=== PATIENT | female | born 1990 ===

== ENCOUNTER 2020-03-19 14:45 | Emergency (ER) | payer OTHER, SELFPAY ==
[2020-03-19 15:00] VITALS: BP 168/100; PULSE 95; RESP 16; TEMP 37.3; O2SAT 100; BMI 31.2
[2020-03-19 15:04] VITALS: BP 168/100; PULSE 95; RESP 16; TEMP 37.3; O2SAT 100
--- NOTE | 2020-03-19 15:20 | ED.DIZZY ---
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 No nausea, vomiting, light sensitivity or weakness. She tells me she has a history of vertigo and was prescribed meclizine however did not have any of this at home. She is also complaining of some posterior neck and head pain. Worsened in the morning after sleeping and worsened with moving her head. MD elicited complaint: dizziness Onset (ago): week(s) ( One week) Timing: intermittent Severity: mild Description: sense of movement History of similar symptoms: Yes Exacerbating factors: movement/ambulation and change in body position Relieving factors: remaining still Associated symptoms: other ( headache, neck pain) Related Data Previous Rx's Medication Instructions Recorded ibuprofen 600 mg PO Q8H PRN #20 tab 03/19/20 meclizine 25 mg PO TID PRN #20 tab 03/19/20 Allergies Allergy/AdvReac Type Severity Reaction Status Date / Time No Known Allergies Allergy Unverified 02/17/20 18:34 N.K.D.A. Allergy Unknown Uncoded 10/29/19 00:00 Review of Systems Review of Systems: Yes all other systems are reviewed and are negative Constitutional: Constitutional: Reports no additional constitutional complaints, Denies body ache(s), Denies chills, Denies fever(s), Reports headache(s) and Denies weakness Eyes: Eyes: Reports no additional eye complaints and Denies change in vision ENT: Reports system reviewed and no additional complaints, except as documented, Reports dizziness, Reports headache(s), Denies nasal congestion, Denies nasal discharge and Denies neck pain Cardiovascular: Cardiovascular: Reports no additional cardiovascular complaints, Denies chest pain, Denies leg edema and Denies dyspnea Respiratory: Respiratory: Reports no additional respiratory complaints, Denies cough and Denies dyspnea Gastrointestinal: Gastrointestinal: Reports no additional gastrointestinal complaints, Denies abdominal pain, Denies diarrhea, Denies nausea and Denies vomiting Genitourinary: Genitourinary: Reports no additional female genitourinary complaints and Denies urinary incontinence Musculoskeletal: Musculoskeletal: Reports no additional musculoskeletal complaints, Denies back pain, Denies arthralgias, Denies joint swelling, Denies neck pain, Denies numbness and Denies tingling Integumentary/Breasts: Skin/Breast: Reports system reviewed and no additional complaints, except as docu and Denies rash Neurologic: Reports system reviewed and no additional complaints, except as documented, Denies Abnormal speech present, Reports dizziness, Reports headache(s), Denies numbness, Denies tingling and Denies weakness PMF Past Medical History Attestation statement: The following information was validated with the patient. Source: obtained from family and nursing notes reviewed Medical History Anemia Hyperlipemia Social History Social History Alcohol intake: never Smoking Status: Never smoker Use of substances other than those prescribed or required for medical reasons: No Advance Directives: No Advance Directives Information Provided: No Physical Exam Vital Signs: Vital Signs: Vital Signs Temp Pulse Resp BP Pulse Ox 03/19/20 18:10 98.4 F 95 16 139/88 99 03/19/20 16:26 90 155/97 H 03/19/20 16:25 80 139/77 03/19/20 15:04 99.1 F 95 16 168/100 H 100 03/19/20 15:00 99.1 F 95 16 168/100 H 100 Body Mass Index 31.2 Const: General: cooperative, healthy appearing, comfortable and no acute distress Orientation/consciousness: patient oriented x3 Limitations: no limitations HENMT: Head: Yes normal to inspection Ears: hearing grossly normal bilaterally General nose exam: Normal external nose present Face and sinus: Yes normal facial exam Mouth: Normal oral and palatal mucosa present Throat: Yes posterior oropharynx normal Eyes: General: appearance normal, both eyes and all related structures Pupils: Equal, round and reactive pupils present Neck: Neck: Yes normal visual inspection Chest: Chest palpation & inspection: normal inspection of the chest Resp: Effort & Inspection: normal respiratory effort Auscultation: clear to auscultation bilaterally Cardio: Rate: regular rate Rhythm: regular rhythm Peripheral pulses: Peripheral pulses 2+ throughout GI: Inspection: Yes normal to inspection Palpation (GI): Soft to palpation and nontender Auscultation: normal bowel sounds Back/Spine/Pelvis: Thoracic/Lumbar Spine: thoracic and lumbar spine normal to inspection Skin: General skin exam: no rashes or lesions noted Neuro: Other: exam the patient has bilateral trapezius tenderness which she reports on palpation up to her posterior head which is worsened with lateral right and left head movement and palpation. No meningeal signs. No lymphadenopathy. General: patient oriented x3, Normal light touch and pain sensation, no focal motor deficits and normal sensation to monofilament Cranial nerves: Yes Equal, round and reactive pupils present Cognition (Neuro): normal cognition Speech: No Abnormal speech present Gait exam (Neuro): Normal gait present Motor exam (neuro): 5/5 motor strength present throughout Sensory Exam: Normal double simultaneous stimulation for sensation Coordination: [id number] test normal, [id number] test normal and tandem gait normal Romberg Test: Negative Extrem: General: Yes normal to inspection Course Course Course Narrative: 29-year-old female here with dizziness with position changes for the last week. Normal neuro exam. Normal cerebellar function on exam. The patient is ambulatory with steady gait. Also complaining of some posterior head and neck pain which on exam is musculoskeletal with no midline tenderness, lymphadenopathy or meningeal signs. Will check orthostatics, labs, EKG, UA. 1900- EKG unremarkable. UA negative. Labs unremarkable. Orthostatics negative. Patient reports feeling improved after receiving a dose meclizine and Toradol here. Likely vertigo. Patient tells me she has history of same and feels similar. Likely tension migraine. Review of care for home. Viewed worrisome signs and symptoms and when to return to the emergency department. Comfortable discharge home. MDM - Dizziness MDM Narrative Medical decision making narrative: Vertigo, anemia, BPPV, orthostatic hypotension, tension migraine, musculoskeletal pain. exam consistent with vertigo. Patient does she has history of the same and this feels similar. Less likely orthostatic hypotension with negative orthostatics vital signs. Exam is consistent with also tension migraine which improved with NSAIDs here. Medical Records Attestation: I reviewed the patient's medical records. Lab Data Attestation: I reviewed the patient's lab results. Result diagrams: 03/19/20 15:52 03/19/20 15:52 Labs: Lab Results 03/19/20 03/19/20 03/19/20 Range/Units 15:52 15:52 15:52 WBC 8.4 (4.8-10.8) X10*3/uL RBC 4.46 (4.20-5.50) X10*6/uL Hgb 11.6 L (12.0-16.0) g/dl Hct 36.3 L (37-47) % MCV 81.4 (80-98) fL MCH 26.0 L (27.0-33.0) pg MCHC 32.0 (31.0-35.0) g/dl RDW 14.6 (11.0-16.0) % Plt Count 265 (160-400) X10*3/uL MPV 10.9 (9.4-12.3) fL Immature Gran % (Auto) 0.1 (0.0-0.4) % Neut % (Auto) 62.5 (45-73) % Lymph % (Auto) 30.6 (20-40) % [place] % (Auto) 6.0 (2-11) % Eos % (Auto) 0.6 (0-4) % Baso % (Auto) 0.2 (0-2) % Lymph # (Auto) 2.6 (1.2-4.9) X10*3/uL [place] # (Auto) 0.5 (0.1-1.2) X10*3/uL Eos # (Auto) 0.1 (0.0-0.4) X10*3/uL Baso # (Auto) 0.0 (0.0-0.2) X10*3/uL Abs Immat Gran (auto) 0.01 (0.00-0.03) X10*3/uL Absolute Neuts (auto) 5.3 (2.0-8.3) X10*3/uL Absolute Nucleated RBC 0.000 (0.0-0.012) X10*3/uL Nucleated RBC % (auto) 0.0 (0.0-0.2) /100WBC Hold Blue Top SEE NOTE Sodium 140 (135-145) mmol/L Potassium 3.8 (3.3-5.1) mmol/l Chloride 106 (96-108) mmol/L Carbon Dioxide 27 (22-29) mmol/L Anion Gap 11 L (12-20) BUN 13 (9-16) mg/dL Creatinine 0.77 (0.5-1.4) mg/dL Estim Creat Clear Calc 97.6 Estimated GFR > 60 Random Glucose 107 (60-115) mg/dL Calcium 9.3 (8.4-10.2) mg/dL Magnesium 1.8 (1.6-2.6) mg/dL Total Bilirubin 0.4 (0.0-1.0) mg/dL Direct Bilirubin < 0.2 (0.0-0.5) mg/dL AST 11 (5-31) U/L ALT 11 (0-31) U/L Alkaline Phosphatase 90 (39-117) U/L Total Protein 7.5 (6.5-8.0) g/dL Albumin 4.2 (3.5-5.0) g/dL Urine Color Urine Appearance Urine pH (5.0-8.0) Ur Specific [place] (1.005-1.025) Urine Protein (NEG-TRACE) MG/DL Urine Glucose (UA) (NEG) MG/DL Urine Ketones (NEG) MG/DL Urine Blood (NEG) Urine Nitrite (NEG) Ur Leukocyte Esterase (NEG) Urine RBC (0) /HPF Urine WBC (0-4) /HPF Ur Squamous Epith Cells /LPF Urine Bacteria /LPF Urine Test (NEGATIVE) 03/19/20 Range/Units 16:07 WBC (4.8-10.8) X10*3/uL RBC (4.20-5.50) X10*6/uL Hgb (12.0-16.0) g/dl Hct (37-47) % MCV (80-98) fL MCH (27.0-33.0) pg MCHC (31.0-35.0) g/dl RDW (11.0-16.0) % Plt Count (160-400) X10*3/uL MPV (9.4-12.3) fL Immature Gran % (Auto) (0.0-0.4) % Neut % (Auto) (45-73) % Lymph % (Auto) (20-40) % [place] % (Auto) (2-11) % Eos % (Auto) (0-4) % Baso % (Auto) (0-2) % Lymph # (Auto) (1.2-4.9) X10*3/uL [place] # (Auto) (0.1-1.2) X10*3/uL Eos # (Auto) (0.0-0.4) X10*3/uL Baso # (Auto) (0.0-0.2) X10*3/uL Abs Immat Gran (auto) (0.00-0.03) X10*3/uL Absolute Neuts (auto) (2.0-8.3) X10*3/uL Absolute Nucleated RBC (0.0-0.012) X10*3/uL Nucleated RBC % (auto) (0.0-0.2) /100WBC Hold Blue Top Sodium (135-145) mmol/L Potassium (3.3-5.1) mmol/l Chloride (96-108) mmol/L Carbon Dioxide (22-29) mmol/L Anion Gap (12-20) BUN (9-16) mg/dL Creatinine (0.5-1.4) mg/dL Estim Creat Clear Calc Estimated GFR Random Glucose (60-115) mg/dL Calcium (8.4-10.2) mg/dL Magnesium (1.6-2.6) mg/dL Total Bilirubin (0.0-1.0) mg/dL Direct Bilirubin (0.0-0.5) mg/dL AST (5-31) U/L ALT (0-31) U/L Alkaline Phosphatase (39-117) U/L Total Protein (6.5-8.0) g/dL Albumin (3.5-5.0) g/dL Urine Color YELLOW Urine Appearance CLEAR Urine pH 6.5 (5.0-8.0) Ur Specific [place] 1.020 (1.005-1.025) Urine Protein NEG (NEG-TRACE) MG/DL Urine Glucose (UA) NEG (NEG) MG/DL Urine Ketones NEG (NEG) MG/DL Urine Blood TRACE (NEG) Urine Nitrite NEG (NEG) Ur Leukocyte Esterase NEG (NEG) Urine RBC 0-2 (0) /HPF Urine WBC 0 (0-4) /HPF Ur Squamous Epith Cells 1+ /LPF Urine Bacteria TRACE /LPF Urine Test NEGATIVE (NEGATIVE) ECG Data Attestation: I personally reviewed and interpreted this ECG as follows: ECG interpretation date: 03/19/20 ECG interpretation time: 16:16 Interpretation: NSR with sinus arrthymia, normal pr, normal qrs, normal st Discharge Plan Discharge Clinical Impression: Vertigo, Acute tension headache Patient Disposition: Home, Self-Care Instructions: Tension Headache (ED), Vertigo (ED) Additional Instructions: heat to the area, gentle stretching change positions slowly Prescriptions: New ibuprofen 600 mg tablet 600 mg PO Q8H PRN (Reason: pain) Qty: 20 RF: 0 meclizine 25 mg tablet 25 mg PO TID PRN (Reason: dizziness) Qty: 20 RF: 0 Referrals: Jaylene Kidd MD [Primary Care Provider] - 2 days Interventions: ED Discharge Assessment Last Done: 03/19/20 19:44 Discharge Date/Time: 03/19/20 19:45 Print Language: [place]
--- NOTE | 2020-03-19 15:30 | ECG_ITS ---
Test Reason : DIZINESS Blood Pressure : / mmHG Vent. Rate : 078 BPM Atrial Rate : 078 BPM P-R Int : 134 ms QRS Dur : 090 ms QT Int : 360 ms P-R-T Axes : 041 055 027 degrees QTc Int : 410 ms Sinus rhythm with marked sinus arrhythmia Otherwise normal ECG When compared with ECG of 27-JUN-2019 01:33, Premature atrial complexes are no longer Present Referred By: Ambar Helton Electronically Signed By:MARTINEZ ESPINO MD
[2020-03-19] MEDS: Meclizine HCl 25 MG TABLET PO (15:53)
[2020-03-19 15:59] LABS: Basophils Percent Auto 0.2 % (0-2); Eosinophils Absolute Auto 0.1 X10*3/uL (0.0-0.4); Eosinophils Percent Auto 0.6 % (0-4); Hematocrit 36.3 % (37-47); Hemoglobin 11.6 g/dl (12.0-16.0); Imm Gran Abs Auto 0.01 X10*3/uL (0.00-0.03); Imm Gran Pct Auto 0.1 % (0.0-0.4); Lymphocytes Absolute Auto 2.6 X10*3/uL (1.2-4.9); Lymphocytes Percent Auto 30.6 % (20-40); MANUAL DIFF FLAG NO; Mean Corpuscular Volume 81.4 fL (80-98); Mean Platelet Volume 10.9 fL (9.4-12.3); Monocytes Absolute Auto 0.5 X10*3/uL (0.1-1.2); Neutrophils Absolute Auto 5.3 X10*3/uL (2.0-8.3); Neutrophils Percent Auto 62.5 % (45-73); Platelet Count 265 X10*3/uL (160-400); Red Blood Count 4.46 X10*6/uL (4.20-5.50); Red Cell Distribution Width 14.6 % (11.0-16.0); White Blood Count 8.4 X10*3/uL (4.8-10.8)
[2020-03-19 16:12] LABS: Glucose Urine UA NEG (NEG); Leukocyte Esterase Urine NEG (NEG); Nitrite Urine NEG (NEG); PH 6.5 (5.0-8.0); Urine Blood TRACE (NEG); Urine Ketones NEG (NEG); Urine Protein NEG (NEG-TRACE)
[2020-03-19 16:16] LABS: Appearance Urine CLEAR; Color Urine YELLOW
[2020-03-19 16:17] LABS: UPreg QC Valid YES; Urine Pregnancy NEGATIVE (NEGATIVE)
[2020-03-19 16:19] LABS: Bacteria Urine TRACE /LPF; RBC Urine 0-2 /HPF (0); Squamous Epithelial Cell Urine 1+ /LPF; WBC Urine 0 /HPF (0-4)
[2020-03-19 16:25] VITALS: BP 139/77; PULSE 80
[2020-03-19 16:26] VITALS: BP 155/97; PULSE 90
[2020-03-19 16:35] LABS: Alanine Aminotransferase 11 U/L (0-31); Albumin Level 4.2 g/dL (3.5-5.0); Alkaline Phosphatase 90 U/L (39-117); Anion Gap 11 (12-20); Aspartate Amino Transferase 11 U/L (5-31); Bilirubin Direct < 0.2 mg/dL (0.0-0.5); Bilirubin Total 0.4 mg/dL (0.0-1.0); Blood Urea Nitrogen 13 mg/dL (9-16); Calcium 9.3 mg/dL (8.4-10.2); Carbon Dioxide 27 mmol/L (22-29); Chloride 106 mmol/L (96-108); Creatinine Clr Calc Pharmacy 97.6; Estimated Glomerular Filt Rate > 60; Glucose Random 107 mg/dL (60-115); Magnesium 1.8 mg/dL (1.6-2.6); Potassium 3.8 mmol/l (3.3-5.1); Sodium 140 mmol/L (135-145); Total Protein 7.5 g/dL (6.5-8.0)
[2020-03-19] MEDS: Ketorolac Tromethamine 30 MG/ML VIAL IVPUSH (18:07)
[2020-03-19 18:10] VITALS: BP 139/88; PULSE 95; RESP 16; TEMP 36.9; O2SAT 99
== END 2020-03-19 19:45 | disposition home or self-care (01) ==
PROVIDERS: Nurse Practitioner Family; Emergency Provider Emergency Medicine; PCP Internal Medicine
DX: R42 Dizziness and giddiness (principal); G44.209 Tension-type headache, unspecified, not intractable
CPT/HCPCS: 36415; 80048; 80076; 81001; 81025; 83735; 85025; 93005; 96374; 96376; 99284; J1885

== ENCOUNTER → 2020-06-21 14:33 | Outpatient (BNVA) | payer OTHER, SELFPAY | PROVIDERS: PCP Internal Medicine; Visit Provider Advanced Practice Midwife ==

== ENCOUNTER 2020-08-12 14:31 | Emergency (ER) | payer OTHER, SELFPAY ==
--- NOTE | ~2020-08-12 | CT_ITS ---
EXAMINATION: CT ABDOMEN AND PELVIS WITHOUT CONTRAST CLINICAL INFORMATION: Right flank pain COMPARISON: None TECHNIQUE: Multidetector volumetric imaging was performed from the superior aspect of the liver through the pubic symphysis. Sagittal and coronal reformatted images were obtained on the technologist's workstation. This CT examination was performed using dose optimization techniques as appropriate, variously including the following: *Automated exposure control *Adjustment of mA and/or kV according to patient size (this includes techniques or standardized protocols for targeted exams where dose is matched to indication/reason for exam; i.e. extremities or head) *Use of iterative reconstruction technique DLP: 611 mGy-cm FINDINGS: LUNG BASES: The visualized lung bases are unremarkable. LIVER, GALLBLADDER, AND BILIARY TREE: The liver is normal in size, shape, and attenuation. No focal hepatic lesion or biliary ductal dilatation is present. The gallbladder is unremarkable with no evidence of radiopaque gallstones, gallbladder wall thickening, or obvious pericholecystic inflammatory changes. PANCREAS: Unremarkable. SPLEEN: Unremarkable. ADRENAL GLANDS: Unremarkable. KIDNEYS AND URETERS: The kidneys are normal in size, shape, and attenuation. No hydronephrosis, hydroureter, or calculi seen. No perinephric stranding. BLADDER: Unremarkable. GASTROINTESTINAL TRACT: The small and large bowel are unremarkable. The appendix is unremarkable. ABDOMINAL WALL: No significant hernia is appreciated. LYMPH NODES: Normal. VASCULAR: Unremarkable. PELVIC VISCERA: Unremarkable. OSSEOUS STRUCTURES: Unremarkable. CT/CT abdomen pelvis wo con IMPRESSION: No significant abnormality. No renal or ureteral calculi. No hydronephrosis. Normal appendix.
[2020-08-12 14:44] VITALS: BP 147/80; PULSE 97; RESP 16; TEMP 36.9; O2SAT 100; BMI 33.6
--- NOTE | 2020-08-12 14:55 | ED.BACK ---
HPI - Back Pain/Injury General Chief Complaint: Back Pain/Injury Stated Complaint: rib pain Time Seen by Provider: 08/12/20 14:53 Source: patient Mode of arrival: ambulatory Limitations: language barrier (Romanian-speaking) History of Present Illness HPI Narrative: A 30-year-old female with a past medical history of anemia, hyperlipidemia, blurry vision, irregular meniscus and tubal ligation presenting to the ED with complaints of atraumatic right back pain radiating to her right flank/right abdomen when she was taking out the trash this morning. Denies any other symptoms complaints or concerns at this time. MD elicited complaint: back pain Onset (ago): hour(s) Timing: constant Severity: moderate Similar Symptoms Previously: No Quality: aching Location: right flank Radiation: abdomen (Right-sided) Exacerbating factors: none Relieving factors: none Context: other (While throwing out the trash this morning) Associated symptoms: denies other symptoms Work related injury: No Related Data Previous Rx's Medication Instructions Recorded ibuprofen 600 mg PO Q8H PRN #20 tab 03/19/20 meclizine 25 mg PO TID PRN #20 tab 03/19/20 cyclobenzaprine 10 mg PO Q8H #10 tab 08/12/20 ibuprofen 800 mg PO Q8H PRN #14 tab 08/12/20 Allergies Allergy/AdvReac Type Severity Reaction Status Date / Time No Known Allergies Allergy Verified 06/21/20 14:39 Review of Systems Review of Systems: Constitutional : No trauma, No Weight loss, No Fever, No Chills, ENT/Mouth : No Hearing loss, No Ear Pain, No Nasal Congestion, No Sinus Pain, No Hoarseness, No sore throat, No Rhinorrhea, No Swallowing Difficulty Cardiovascular : No Chest Pain, No SOB Respiratory : No Cough, No Dyspnea Gastrointestinal : No Nausea, No Vomiting, No Diarrhea, No abdominal Pain, No Hematochezia, No Melena Genitourinary : No Dysuria, No Urinary Frequency, No Hematuria, No Urinary or Bowel Incontinence/retention Musculoskeletal : + Back pain, No neck pain, No joint stiffness, No joint swelling Skin : No Skin Lesions, No rash or signs of infection Neuro : No Weakness, No radiation, No Numbness, No Paresthesias, No headache, no loss of bowel or bladder incontinence, no saddle anesthesia, Focal weakness, No radiation Denies history of IV drug usage. Yes all other systems are reviewed and are negative [facility] Past Medical History Attestation statement: The following information was validated with the patient. Medical History Anemia Blurry vision Hyperlipemia Irregular menses Surgical History History of tubal ligation Family History Family History Father Diabetes Hypertension Myocardial infarction Mother Hypertension Son In good health Brother In good health Sister In good health Paternal Aunt Stroke Social History Social History Alcohol intake: never Smoking Status: Never smoker Smoked in Last 30 Days: No Use of substances other than those prescribed or required for medical reasons: No Advance Directives: No Advance Directives Information Provided: Yes Gender identity: female Physical Exam Vital Signs: Vital Signs: Last Vital Signs Temp 98.4 F 08/12/20 14:44 Pulse 97 08/12/20 14:44 Resp 16 08/12/20 14:44 BP 147/80 H 08/12/20 14:44 Pulse Ox 100 08/12/20 14:44 Body Mass Index 33.6 vital signs have been reviewed as normal and appeared to be correct. Blood pressure hypertensive at 147/80. Heart rate normal. Respiration rate normal. Temperature normal. Oxygen saturation normal. Appearance: Alert. Oriented X3. No acute distress. Head: Normal external exam. Normocephalic. Atraumatic. No Medel signs noted. No raccoon eyes noted Eyes: PERRLA. EOMI. Conjunctiva and sclera normal. Eyelids normal. ENT: EAC normal. TM's Normal. Pharynx normal. Uvula midline. Moist mucous membranes. No trismus noted. No drooling noted. No muffled voice noted. Neck: Normal inspection. Neck supple. FROM. No adenopathy. Thyroid Normal. No meningeal signs. No neck mass noted. CVS: Normal heart rate and rhythm. Heart sound normal. No murmurs noted. Pulses normal throughout. Respiratory: No respiratory distress. Painless inspiration. Breath sounds normal. No wheezes/rales/rhonchi noted. Chest nontender. No accessory muscle usage noted or decreased air movement noted. Abdomen: Soft and mild tenderness to palpation to right flank/right side of abdomen no point tenderness to right lower quadrant or right upper quadrant. Nondistended. No guarding. No rigidity. Bowel sounds normal in all 4 quadrants. No distention noted. No organomegaly noted. No visible injury noted. No rebound tenderness. Negative Rovsing sign. Negative obturator's sign. Negative psoas sign. Negative Mott sign. Back: No CVA tenderness. Full range of motion noted. No obvious deformities, or edema. Mild para-spinal muscular tenderness from lumbar region to coccyx. Full ROM in back and lower extremities. 5/5 strength hip extension/flexion, abduction, adduction. Mild Lumbar pain with hip flexion against resistance. Straight leg raise test negative on right; Straight leg raise test negative on left; Reflexes normal ankle and knee bilaterally; EHL motor strength normal bilaterally Skin: Skin warm and dry. Normal skin color. Normal skin turgor. No rashes/lesions/lacerations noted. Extremities: No lower extremity edema. Extremities exhibit normal range of motion. Extremities nontender. Neuro: Oriented X 3. No motor deficit. No sensory deficit. Reflexes normal. Course Course Course Narrative: - 14:55pm Pt c likely muscular pain, but could be herniated disc vs kidney stones vs UTI. Neuro exam shows no deficits. Not c/w AAA/epidural abscess/dissection.No high risk Hx (Incont, fever, immunosupp, recent surgery/LP, coag, signif trauma, wt loss, puls mass, hx/o Ca, TB, or IVDU) to warrant MRI. Not c/w spinal fx. Not cauda equina syndrome. Therefore will obtain a UA, UHCG and a CT scan of abdomen pelvis without contrast to evaluate for possible UA, or kidney stones if negative will DC home with symptomatic treatment all instructions return if any new or worsening symptoms follow-up with primary care provider. Patient understands agrees with this plan. Reevaluation(s) Reevaluation #1: - UA within normal limits no evidence of UTI. UHCG negative for . CT scan of abdomen pelvis without contrast within normal limits no evidence of kidney stones or any other acute processes. Will DC home with symptomatic treatment as patient reports some Motrin and Flexeril helped her symptoms moderately. Instructions return if any new or worsening symptoms to follow up with primary care provider. Patient understands agrees the plan. Time: 17:15 [facility] - Back Pain/Injury Medical Records Attestation: I reviewed the patient's medical records. Lab Data Attestation: I reviewed the patient's lab results. Labs: Lab Results 08/12/20 08/12/20 Range/Units 14:59 14:59 Urine Color YELLOW Urine Appearance CLEAR Urine pH 6.5 (5.0-8.0) Ur Specific [place] 1.025 (1.005-1.025) Urine Protein NEG (NEG-TRACE) MG/DL Urine Glucose (UA) NEG (NEG) MG/DL Urine Ketones NEG (NEG) MG/DL Urine Blood NEG (NEG) Urine Nitrite NEG (NEG) Ur Leukocyte Esterase 1+ H (NEG) Urine RBC 0-2 (0) /HPF Urine WBC 5-9 H (0-4) /HPF Ur Squamous Epith Cells 4+ /LPF Urine Bacteria 3+ /LPF Urine Test NEGATIVE (NEGATIVE) Imaging Data CT scan of abdomen and pelvis without IV contrast: Attestation: I personally reviewed and interpreted this imaging study as follows: Radiologist's impression: FINDINGS: LUNG BASES: The visualized lung bases are unremarkable. LIVER, GALLBLADDER, AND BILIARY TREE: The liver is normal in size, shape, and attenuation. No focal hepatic lesion or biliary ductal dilatation is present. The gallbladder is unremarkable with no evidence of radiopaque gallstones, gallbladder wall thickening, or obvious pericholecystic inflammatory changes. PANCREAS: Unremarkable. SPLEEN: Unremarkable. ADRENAL GLANDS: Unremarkable. KIDNEYS AND URETERS: The kidneys are normal in size, shape, and attenuation. No hydronephrosis, hydroureter, or calculi seen. No perinephric stranding. BLADDER: Unremarkable. GASTROINTESTINAL TRACT: The small and large bowel are unremarkable. The appendix is unremarkable. ABDOMINAL WALL: No significant hernia is appreciated. LYMPH NODES: Normal. VASCULAR: Unremarkable. PELVIC VISCERA: Unremarkable. OSSEOUS STRUCTURES: Unremarkable. CT/CT abdomen pelvis wo con IMPRESSION: No significant abnormality. No renal or ureteral calculi. No hydronephrosis. Normal appendix. Discharge Plan Discharge Clinical Impression: Muscle strain Patient Disposition: Home, Self-Care Instructions: Back Pain (ED) Prescriptions: New cyclobenzaprine 10 mg tablet 10 mg PO Q8H Qty: 10 RF: 0 ibuprofen 800 mg tablet 800 mg PO Q8H PRN (Reason: pain) Qty: 14 RF: 0 No Action ibuprofen 600 mg tablet 600 mg PO Q8H PRN (Reason: pain) Qty: 20 RF: 0 meclizine 25 mg tablet 25 mg PO TID PRN (Reason: dizziness) Qty: 20 RF: 0 Referrals: Jaylene Kidd MD [Primary Care Provider] - 2 days Print Language: Romanian
[2020-08-12 15:39] LABS: Glucose Urine UA NEG (NEG); Leukocyte Esterase Urine 1+ (NEG); Nitrite Urine NEG (NEG); PH 6.5 (5.0-8.0); Specific Gravity - Urine 1.025 (1.005-1.025); UACC Culture Trigger YES; Urine Blood NEG (NEG); Urine Ketones NEG (NEG); Urine Protein NEG (NEG-TRACE)
[2020-08-12 15:44] LABS: Appearance Urine CLEAR; Color Urine YELLOW
[2020-08-12 15:59] LABS: Bacteria Urine 3+ /LPF; RBC Urine 0-2 /HPF (0); Squamous Epithelial Cell Urine 4+ /LPF; UPreg QC Valid YES; Urine Pregnancy NEGATIVE (NEGATIVE)
[2020-08-12] MEDS: Ibuprofen 800 MG TABLET PO (16:17)
[2020-08-12] MEDS: Cyclobenzaprine HCl 10 MG TABLET PO (16:17)
== END 2020-08-12 17:23 | disposition home or self-care (01) ==
PROVIDERS: Physician Assistant Medical; Emergency Provider Emergency Medicine; PCP Internal Medicine
DX: S39.012A Strain of muscle, fascia and tendon of lower back, initial encounter (principal); X50.0XXA Overexertion from strenuous movement or load, initial encounter; Y93.9 Activity, unspecified; Y92.009 Unspecified place in unspecified non-institutional (private) residence as the place of occurrence of the external cause; Y99.9 Unspecified external cause status; Z79.899 Other long term (current) drug therapy
CPT/HCPCS: 74176; 81001; 81003; 81025; 87086; 99284

== ENCOUNTER 2020-10-19 10:16 | Outpatient (REF) | payer OTHER, SELFPAY ==
[2020-10-19 12:18] LABS: Hematocrit 35.3 % (37-47); Hemoglobin 11.1 g/dl (12.0-16.0); Mean Corpuscular HGB Conc 31.4 g/dl (31.0-35.0); Mean Corpuscular Volume 79.5 fL (80-98); Mean Platelet Volume 11.1 fL (9.4-12.3); Platelet Count 285 X10*3/uL (160-400); Red Blood Count 4.44 X10*6/uL (4.20-5.50); Red Cell Distribution Width 14.3 % (11.0-16.0); White Blood Count 7.1 X10*3/uL (4.8-10.8)
[2020-10-19 13:00] LABS: Thyroid Stimulating Hormone 0.86 uIU/mL (0.32-4.0)
[2020-10-19 15:15] LABS: CT PCR NOT DETECTED (Not Detect.); NG PCR NOT DETECTED (Not Detect.)
[2020-10-20 08:48] LABS: BV Int Neg Control Negative (Negative); BV Int Pos Control Positive (Positive)
== END 2020-10-19 10:17 | disposition home or self-care (01) ==
LOC: HO.LAB 10:16
PROVIDERS: PCP Internal Medicine; Visit Provider Advanced Practice Midwife
DX: N92.1 Excessive and frequent menstruation with irregular cycle (principal); N93.9 Abnormal uterine and vaginal bleeding, unspecified; Z20.2 Contact with and (suspected) exposure to infections with a predominantly sexual mode of transmission
CPT/HCPCS: 36415; 81025; 84443; 85027; 87480; 87491; 87510; 87591; 87660; 99212

== ENCOUNTER 2020-10-31 08:59 | Outpatient (REF) | payer OTHER, SELFPAY | END 2020-10-31 09:00 | disposition home or self-care (01) | LOC: HO.LAB 08:59 | PROVIDERS: PCP Internal Medicine; Visit Provider Advanced Practice Midwife | DX: N93.9 Abnormal uterine and vaginal bleeding, unspecified (principal); N92.0 Excessive and frequent menstruation with regular cycle; Z32.02 Encounter for pregnancy test, result negative | CPT/HCPCS: 58100; 81025; 88305; 99212 ==

== ENCOUNTER 2020-11-06 12:52 | Outpatient (REF) | payer OTHER, SELFPAY ==
--- NOTE | ~2020-11-06 | US_ITS ---
EXAMINATION: PELVIC ULTRASOUND CLINICAL INFORMATION: Abnormal bleeding COMPARISON: Previous pelvic ultrasound May [address] of the abdomen and pelvis July 2020 TECHNIQUE: Transabdominal and transvaginal pelvic ultrasound was performed. Transvaginal exam was performed for better visualization of uterus and ovaries. FINDINGS: The uterus is anteverted and measures 8.6 x 4.3 x 5.4 cm in dimension. No focal uterine lesion is seen. Endometrial thickness is normal measuring 0.9 cm. There are nabothian cysts in the cervix. The right ovary is located high in the pelvis and measures 2.8 x 3.1 x 2.3 cm. The left ovary measures 3.8 x 2.9 x 2.4 cm. There are multiple small peripheral cysts or follicles seen in the left ovary. This is not appreciated on the right however this may be due to location of the right ovary and limited visualization. There is no fluid in the pelvis. US/US pelvic and transvaginal IMPRESSION: Polycystic appearance to the left ovary otherwise unremarkable exam.
== END 2020-11-06 12:53 | disposition home or self-care (01) ==
LOC: HO.US 12:52
PROVIDERS: Visit Provider Advanced Practice Midwife
DX: N93.9 Abnormal uterine and vaginal bleeding, unspecified (principal); N92.0 Excessive and frequent menstruation with regular cycle
CPT/HCPCS: 76830; 76856

== ENCOUNTER → 2020-11-07 10:05 | Outpatient (BNVA) | payer OTHER, SELFPAY | PROVIDERS: PCP Internal Medicine; Visit Provider Advanced Practice Midwife | DX: N93.9 Abnormal uterine and vaginal bleeding, unspecified (principal); N92.0 Excessive and frequent menstruation with regular cycle; N92.6 Irregular menstruation, unspecified; Z98.51 Tubal ligation status | CPT/HCPCS: 99212 ==

== ENCOUNTER → 2020-11-13 14:04 | Outpatient (BNVA) | payer OTHER, SELFPAY | PROVIDERS: PCP Internal Medicine; Visit Provider Advanced Practice Midwife ==

== ENCOUNTER 2021-04-29 10:50 | Emergency (ER) | payer OTHER, SELFPAY ==
--- NOTE | ~2021-04-29 | CT_ITS ---
EXAMINATION: CT ABDOMEN AND PELVIS WITH CONTRAST CLINICAL INFORMATION: Left-sided lower back pain radiating to the abdomen. COMPARISON: Most recent pelvic ultrasound dated 11/06/[address] abdomen/pelvis dated 08/12/2020. TECHNIQUE: Multidetector volumetric images were obtained from the superior aspect of the liver through the pubic symphysis following administration 85 mL of Omnipaque 350 intravenous contrast. Sagittal and coronal reformatted images were obtained on the technologist's workstation. Oral Contrast: No. This CT examination was performed using dose optimization techniques as appropriate, variously including the following: *Automated exposure control. *Adjustment of mA and/or kV according to patient size (this includes techniques or standardized protocols for targeted exams where dose is matched to indication/reason for exam; i.e. extremities or head). *Use of iterative reconstruction technique. DLP: 871 mGy-cm FINDINGS: LUNG BASES: The visualized lung bases are unremarkable. LIVER, GALLBLADDER, AND BILIARY TREE: The liver is normal in size, shape, and attenuation. No focal hepatic lesion or biliary ductal dilatation is present. The gallbladder is unremarkable with no evidence of radiopaque gallstones, gallbladder wall thickening, or obvious pericholecystic inflammatory changes. PANCREAS: Unremarkable. SPLEEN: Unremarkable. ADRENAL GLANDS: Unremarkable. KIDNEYS AND URETERS: The kidneys are normal in size, shape, and attenuation. No hydronephrosis, hydroureter, or calculi seen. No perinephric stranding. BLADDER: Unremarkable. GASTROINTESTINAL TRACT: No bowel wall thickening or inflammatory change. No small or large bowel obstruction. Unremarkable appendix. PERITONEAL CAVITY: No intra-abdominal free air or free fluid. No intra-abdominal mass or organized fluid collection/abscess formation. ABDOMINAL WALL: No significant hernia is appreciated. LYMPH NODES: Normal. VASCULAR: Unremarkable. PELVIC VISCERA: The uterus and adnexa are unremarkable. OSSEOUS STRUCTURES: Unremarkable. CT/CT abdomen pelvis w con IMPRESSION: No significant abnormality. Fleischner guidelines were followed.
[2021-04-29 10:55] VITALS: BP 153/84; PULSE 100; RESP 18; TEMP 36.8; O2SAT 99; BMI 34.0
--- NOTE | 2021-04-29 14:47 | ED_ITS ---
HPI - Abdominal Pain General Chief Complaint: Abdominal Pain Stated Complaint: l side abd pain Time Seen by Provider: 04/29/21 14:46 Source: patient Mode of arrival: ambulatory Limitations: language barrier History of Present Illness HPI narrative: 22-year-old female who has had 2 weeks of low back pain that is atraumatic. Also pain on the right side of her abdomen. No dysuria, although she does endorse increasing urinary frequency. States she has irregular menses is, last menstrual period started April 09, and she has continued to bleed. She has been bleeding for 20 days, using 3 pads a day. Patient has a past medical history of anemia, menorrhagia, PCOS, tubal ligation, abnormal uterine bleeding. She is sexually active. No fevers. Related Data Previous Rx's Medication Instructions Recorded cephalexin 500 mg capsule 500 mg PO QID 5 Days #20 cap 04/29/21 Allergies Allergy/AdvReac Type Severity Reaction Status Date / Time No Known Allergies Allergy Verified 11/13/20 14:05 Review of Systems Constitutional: Denies body ache(s), Denies chills, Denies fatigue, Denies fever(s), Denies headache(s), Denies malaise and Denies weakness Eyes: Denies diplopia Denies vertigo, Denies dizziness, Denies otalgia, Denies headache(s), Denies mouth pain, Denies post nasal drip, Denies sinus pain, Denies sinus pressure, D enies sore throat and Denies throat swelling Cardiovascular: Denies chest pain, Denies syncope, Denies leg edema, Denies lightheadedness, Denies Loss of Consciousness, Denies palpitations and Denies dyspnea Respiratory: Denies chest congestion, Denies cough and Denies dyspnea Gastrointestinal: Reports abdominal pain, Denies coffee ground emesis, Denies diarrhea, Denies nausea and Denies vomiting Genitourinary: Reports abnormal menses, Reports abnormal vaginal bleeding, Denies dysuria, Denies pelvic pain, Reports flank pain, Denies urinary incontinence, Denies urinary hesitancy and Reports urinary urgency Musculoskeletal: Reports no additional musculoskeletal complaints Denies confusion, Denies vertigo, Denies dizziness, Denies syncope, Denies headache(s) and Denies weakness Psychiatric: Denies anxiety, Denies confusion and Denies depression Endocrine: Denies fatigue and Denies palpitations Allergic/Immunologic: Denies throat swelling Physical Exam Vital Signs: Vital Signs: Last Vital Signs Temp 97.9 F 04/29/21 14:50 Pulse 72 04/29/21 20:10 Resp 18 04/29/21 10:55 BP 140/88 H 04/29/21 20:10 Pulse Ox 99 04/29/21 14:50 Body Mass Index 34.0 Const: General: No confusion Nutritional Appearance: well nourished Orientation/consciousness: No confusion Limitations: no limitations Eyes: Conjunctivae: conjunctivae normal Pupils: Equal, round and reactive pupils present EOM: EOMs intact bilaterally Neck: Neck: Yes full ROM, Yes no lymphadenopathy and Yes supple Resp: Effort & Inspection: normal respiratory effort and able to speak in complete sentences Auscultation: clear to auscultation bilaterally, no crackles, no rales, no rhonchi and no wheezes Cardio: Rate: regular rate Rhythm: regular rhythm Heart sounds: S1 normal heart sound present and S2 normal heart sound present GI: Inspection: Yes normal to inspection Palpation (GI): Soft to palpation, not firm, nontender, no guarding and not rigid Percussion: Yes normal to percussion Auscultation: normal bowel sounds : General: Yes CVA tenderness on the left Back/Spine/Pelvis: Back: CVA tenderness Skin: General skin exam: no rashes or lesions noted Neuro: General: No confusion Cranial nerves: Yes Equal, round and reactive pupils present Extrem: General: Yes normal to inspection and Yes full ROM Psych: Appearance: grossly normal Affect: normal affect Attitude: cooperative Thought process: Normal thought process present Course Course Course Narrative: 22-year-old female presents for 2 weeks of low back pain, right-sided abdominal pain, urinary frequency, and left flank pain. On exam, patient has stable vitals, has left-sided CVA tenderness, benign abdominal. Reevaluation(s) Reevaluation #1: Patient is not , H&H shows mild anemia at 11.2 and 36.5, CT negative, shows no evidence of kidney stone or pyelonephritis, no other acute abnormalities, urine is positive for urinary tract infection. Treated with cephalexin, gave return precautions of fever and worsening back pain, patient verbalized agreement and understanding of the plan. MDM - Abdominal Pain Lab Data Result diagrams: 04/29/21 16:25 04/29/21 16:25 Labs: Lab Results 04/29/21 04/29/21 04/29/21 Range/Units 16:25 16:25 18:18 WBC 9.6 (4.8-10.8) X10*3/uL RBC 4.75 (4.20-5.50) X10*6/uL Hgb 11.2 L (12.0-16.0) g/dl Hct 36.5 L (37.0-47.0) % MCV 76.8 L (80.0-98.0) fL MCH 23.6 L (27.0-33.0) pg MCHC 30.7 L (31.0-35.0) g/dl RDW 16.8 H (11.0-16.0) % Plt Count 296 (160-400) X10*3/uL MPV 10.9 (9.4-12.3) fL Immature Gran % (Auto) 0.2 (0.0-0.4) % Neut % (Auto) 55.6 (45-73) % Lymph % (Auto) 37.0 (20-40) % [place] % (Auto) 6.6 (2-11) % Eos % (Auto) 0.4 (0-4) % Baso % (Auto) 0.2 (0-2) % Lymph # (Auto) 3.5 (1.2-4.9) X10*3/uL [place] # (Auto) 0.6 (0.1-1.2) X10*3/uL Eos # (Auto) 0.0 (0.0-0.4) X10*3/uL Baso # (Auto) 0.0 (0.0-0.2) X10*3/uL Abs Immat Gran (auto) 0.02 (0.00-0.03) X10*3/uL Absolute Neuts (auto) 5.3 (2.0-8.3) x10*3/uL Absolute Nucleated RBC 0.000 (0.0-0.012) X10*3/uL Nucleated RBC % (auto) 0.0 (0.0-0.2) /100WBC Sodium 140 (135-145) mmol/L Potassium 4.1 (3.3-5.1) mmol/L Chloride 107 (96-108) mmol/L Carbon Dioxide 24 (22-29) mmol/L Anion Gap 13 (12-20) BUN 13 (9-16) mg/dL Creatinine 0.78 (0.5-1.4) mg/dL Estim Creat Clear Calc 104.0 Estimated GFR > 60 Random Glucose 82 (60-115) mg/dL Calcium 9.8 (8.4-10.2) mg/dL Total Bilirubin 0.4 (0.0-1.0) mg/dL AST 14 (5-31) U/L ALT 14 (0-31) U/L Alkaline Phosphatase 94 (39-117) U/L Total Protein 8.0 (6.5-8.0) g/dL Albumin 4.5 (3.5-5.0) g/dL Lipase 27 (8-78) U/L Urine Color RED Urine Appearance TURBID Urine pH 5.0 (5.0-8.0) Ur Specific [place] >= 1.030 H (1.005-1.025) Urine Protein 2+ H (NEG-TRACE) MG/DL Urine Glucose (UA) NEG (NEG) MG/DL Urine Ketones 5 (NEG) MG/DL Urine Blood 3+ H (NEG) Urine Nitrite POS H (NEG) Ur Leukocyte Esterase 2+ H (NEG) Urine RBC TNTC H (0) /HPF Urine WBC 1-4 (0-4) /HPF Ur Squamous Epith Cells TRACE /LPF Urine Bacteria 2+ /LPF Urine Test (NEGATIVE) 04/29/21 Range/Units 18:19 WBC (4.8-10.8) X10*3/uL RBC (4.20-5.50) X10*6/uL Hgb (12.0-16.0) g/dl Hct (37.0-47.0) % MCV (80.0-98.0) fL MCH (27.0-33.0) pg MCHC (31.0-35.0) g/dl RDW (11.0-16.0) % Plt Count (160-400) X10*3/uL MPV (9.4-12.3) fL Immature Gran % (Auto) (0.0-0.4) % Neut % (Auto) (45-73) % Lymph % (Auto) (20-40) % [place] % (Auto) (2-11) % Eos % (Auto) (0-4) % Baso % (Auto) (0-2) % Lymph # (Auto) (1.2-4.9) X10*3/uL [place] # (Auto) (0.1-1.2) X10*3/uL Eos # (Auto) (0.0-0.4) X10*3/uL Baso # (Auto) (0.0-0.2) X10*3/uL Abs Immat Gran (auto) (0.00-0.03) X10*3/uL Absolute Neuts (auto) (2.0-8.3) x10*3/uL Absolute Nucleated RBC (0.0-0.012) X10*3/uL Nucleated RBC % (auto) (0.0-0.2) /100WBC Sodium (135-145) mmol/L Potassium (3.3-5.1) mmol/L Chloride (96-108) mmol/L Carbon Dioxide (22-29) mmol/L Anion Gap (12-20) BUN (9-16) mg/dL Creatinine (0.5-1.4) mg/dL Estim Creat Clear Calc Estimated GFR Random Glucose (60-115) mg/dL Calcium (8.4-10.2) mg/dL Total Bilirubin (0.0-1.0) mg/dL AST (5-31) U/L ALT (0-31) U/L Alkaline Phosphatase (39-117) U/L Total Protein (6.5-8.0) g/dL Albumin (3.5-5.0) g/dL Lipase (8-78) U/L Urine Color Urine Appearance Urine pH (5.0-8.0) Ur Specific [place] (1.005-1.025) Urine Protein (NEG-TRACE) MG/DL Urine Glucose (UA) (NEG) MG/DL Urine Ketones (NEG) MG/DL Urine Blood (NEG) Urine Nitrite (NEG) Ur Leukocyte Esterase (NEG) Urine RBC (0) /HPF Urine WBC (0-4) /HPF Ur Squamous Epith Cells /LPF Urine Bacteria /LPF Urine Test NEGATIVE (NEGATIVE) Discharge Plan Discharge Clinical Impression: UTI (urinary tract infection) Qualifiers: Urinary tract infection type: acute cystitis Hematuria presence: without hematuria Qualified Code(s): N30.00 - Acute cystitis without hematuria Patient Disposition: Home, Self-Care Instructions: Urinary Tract Infection in Women (ED) Additional Instructions: We will call you if you are not on the right antibiotic in 2-3 days. If you do not hear from us, is soon urine the right antibiotic and continue taking it until it is done. Please return to be seen if you have fevers or worsening severe back pain, as these are signs of a kidney infection. Also please return if you have nausea or vomiting or any other new concerning symptoms. Lo llamaremos si no est? tomando el antibi?reuben correcto en 2-3 d?as. Si no tiene noticias nuestras, pronto ser? la orina el antibi?reuben adecuado y contin?e denys?ndolo hasta que est? listo. Regrese para que lo examinen si tiene fiebre o un dolor de espalda intenso que empeora, ya que estos son signos de polly infecci?n renal. Tambi?n regrese si tiene n?useas o v?mitos o cualquier otro s?ntoma nuevo que le preocupe. Prescriptions: New cephalexin 500 mg capsule 500 mg PO QID 5 Days Qty: 20 RF: 0 Stand Alone Forms: Work/School Release Interventions: ED Discharge Assessment Last Done: 04/29/21 20:20 Discharge Date/Time: 04/29/21 20:21 Print Language: [place] [facility] Past Medical History Medical History Anemia Blurry vision Hyperlipemia Irregular menses Surgical History History of tubal ligation Family History Family History Father Diabetes Hypertension Myocardial infarction Mother Hypertension Son In good health Brother In good health Sister In good health Paternal Aunt Stroke Social History Social History Alcohol intake: never Patient Tobacco Use Status: Never used Tobacco Use of substances other than those prescribed or required for medical reasons: No Advance Directives: No Advance Directives Information Provided: Yes Gender identity: Female
[2021-04-29 14:50] VITALS: BP 145/85; PULSE 75; TEMP 36.6; O2SAT 99
[2021-04-29] MEDS: 0.9 % Sodium Chloride 1,000 ML 999 ML IV (16:28)
[2021-04-29 16:29] LABS: Basophils Percent Auto 0.2 % (0-2); Eosinophils Percent Auto 0.4 % (0-4); Hematocrit 36.5 % (37.0-47.0); Hemoglobin 11.2 g/dl (12.0-16.0); Imm Gran Abs Auto 0.02 X10*3/uL (0.00-0.03); Imm Gran Pct Auto 0.2 % (0.0-0.4); Lymphocytes Absolute Auto 3.5 X10*3/uL (1.2-4.9); MANUAL DIFF FLAG NO; Mean Corpuscular HGB Conc 30.7 g/dl (31.0-35.0); Mean Corpuscular Hemoglobin 23.6 pg (27.0-33.0); Mean Corpuscular Volume 76.8 fL (80.0-98.0); Mean Platelet Volume 10.9 fL (9.4-12.3); Monocytes Absolute Auto 0.6 X10*3/uL (0.1-1.2); Monocytes Percent Auto 6.6 % (2-11); Neutrophils Absolute Auto 5.3 x10*3/uL (2.0-8.3); Neutrophils Percent Auto 55.6 % (45-73); Platelet Count 296 X10*3/uL (160-400); Red Blood Count 4.75 X10*6/uL (4.20-5.50); Red Cell Distribution Width 16.8 % (11.0-16.0); White Blood Count 9.6 X10*3/uL (4.8-10.8)
[2021-04-29 16:49] LABS: Alanine Aminotransferase 14 U/L (0-31); Albumin Level 4.5 g/dL (3.5-5.0); Alkaline Phosphatase 94 U/L (39-117); Anion Gap 13 (12-20); Aspartate Amino Transferase 14 U/L (5-31); Bilirubin Total 0.4 mg/dL (0.0-1.0); Blood Urea Nitrogen 13 mg/dL (9-16); Calcium 9.8 mg/dL (8.4-10.2); Carbon Dioxide 24 mmol/L (22-29); Chloride 107 mmol/L (96-108); Estimated Glomerular Filt Rate > 60; Glucose Random 82 mg/dL (60-115); Lipase 27 U/L (8-78); Potassium 4.1 mmol/L (3.3-5.1); Sodium 140 mmol/L (135-145)
[2021-04-29] MEDS: Ketorolac Tromethamine 30 MG/ML VIAL 15 MG IVPUSH (17:16)
[2021-04-29 18:26] LABS: Appearance Urine TURBID; Color Urine RED; Glucose Urine UA NEG (NEG); Leukocyte Esterase Urine 2+ (NEG); Nitrite Urine POS (NEG); Specific Gravity - Urine >= 1.030 (1.005-1.025); Urine Blood 3+ (NEG); Urine Ketones 5 MG/DL (NEG); Urine Protein 2+ MG/DL (NEG-TRACE)
[2021-04-29 18:30] LABS: UPreg QC Valid YES; Urine Pregnancy NEGATIVE (NEGATIVE)
[2021-04-29 18:48] LABS: Bacteria Urine 2+ /LPF; RBC Urine TNTC /HPF (0); Squamous Epithelial Cell Urine TRACE /LPF
[2021-04-29] MEDS: iohexoL 350 MG/ML 100 ML INFUS..BTL IV (19:01)
[2021-04-29] MEDS: Cyclobenzaprine HCl 5 MG TABLET PO (19:01)
[2021-04-29 20:10] VITALS: BP 140/88; PULSE 72
== END 2021-04-29 20:21 | disposition home or self-care (01) ==
PROVIDERS: Physician Assistant; Emergency Provider Emergency Medicine; PCP Internal Medicine
DX: N30.00 Acute cystitis without hematuria (principal); M54.50 Low back pain, unspecified
CPT/HCPCS: 36415; 74177; 80053; 81001; 81025; 83690; 85025; 96361; 96374; 96375; 96376; 99284; J1885; J2270; J2405; Q9967

== ENCOUNTER 2021-06-25 09:03 | Outpatient (REF) | payer OTHER, SELFPAY ==
[2021-06-25 09:30] LABS: Binax Internal Control QC Valid; Binax Now Covid-19 Ag Negative (Negative)
== END 2021-06-25 09:04 | disposition home or self-care (01) ==
LOC: HO.HMGCLDS 09:03
PROVIDERS: PCP Internal Medicine; Visit Provider Internal Medicine
DX: Z13.89 Encounter for screening for other disorder (principal)

== ENCOUNTER 2021-06-26 07:31 | Emergency (ER) | payer OTHER, SELFPAY ==
[2021-06-26 07:42] VITALS: BP 129/80; BMI 32.1
[2021-06-26 07:45] VITALS: BP 129/80; PULSE 77; RESP 14; TEMP 37.1; O2SAT 92
--- NOTE | 2021-06-26 07:49 | ECG_ITS ---
Test Reason : dizziness Blood Pressure : / mmHG Vent. Rate : 066 BPM Atrial Rate : 066 BPM P-R Int : 106 ms QRS Dur : 090 ms QT Int : 386 ms P-R-T Axes : 027 042 013 degrees QTc Int : 404 ms Sinus rhythm with Premature atrial complexes with short DE Otherwise normal ECG When compared with ECG of 19-MAR-2020 16:16, No significant change was found Referred By: Hasmukh Dupree Electronically Signed By:CHE MIRANDA MD
--- NOTE | 2021-06-26 07:55 | ED.DIZZY ---
HPI - Dizziness General Chief Complaint: Dizziness Stated Complaint: dizzy Time Seen by Provider: 06/26/21 07:42 Source: patient Limitations: language barrier (Hospital change consultant used) History of Present Illness HPI Narrative: This is a 31-year-old female with a history of elevated cholesterol, and vertigo, who woke up yesterday feeling like she was dizzy and off balance. She said she noticed it actually when she tried to go to work. The patient went to a clinic yesterday and check a P and said she had some pain in her left ear associated with her symptoms. She stated they never examined her and prescribed her amoxicillin. Patient denies any headache. Does have mild left ear pain. She did have brief chest pain yesterday. She denies any shortness of breath. She denies any nausea vomiting. She denies any swelling in her legs. Denies any prior history of cardiac problems. She denies feeling like she is going to black out. She has had prior surgery such that she cannot get . She does have history of polycystic ovaries, as well as anemia Related Data Previous Rx's Medication Instructions Recorded amoxicillin 500 mg capsule 500 mg PO Q8H #30 cap 06/25/21 ferrous sulfate 324 mg (65 mg 324 mg PO BID #60 tab 06/26/21 iron) tablet,delayed release meclizine 25 mg tablet 25 mg PO QID PRN #30 tab 06/26/21 Allergies Allergy/AdvReac Type Severity Reaction Status Date / Time No Known Allergies Allergy Verified 06/26/21 07:42 Review of Systems Constitutional: Constitutional: Reports as per HPI and Denies headache(s) Eyes: Eyes: Reports no additional eye complaints ENT: Reports as per HPI, Reports vertigo, Reports dizziness and Denies headache(s) Cardiovascular: Cardiovascular: Reports as per HPI and Denies syncope Respiratory: Respiratory: Reports as per HPI Gastrointestinal: Gastrointestinal: Reports as per HPI Musculoskeletal: Musculoskeletal: Reports no additional musculoskeletal complaints and Reports as per HPI Neurologic: Reports vertigo, Reports dizziness, Denies syncope, Denies headache(s) and Denies Sensory deficit (Neuro) Psychiatric: Psychiatric: Reports no additional psychiatric complaints PMF Past Medical History Medical History (Updated 06/26/21 @ 09:18 by Hasmukh Dupree MD) Abdominal pain Anemia Blurry vision Hyperlipemia Irregular menses Surgical History History of tubal ligation Family History Family History Father Diabetes Hypertension Myocardial infarction Mother Hypertension Son In good health Brother In good health Sister In good health Paternal Aunt Stroke Social History Social History Housing: Apartment Alcohol intake: never Patient Tobacco Use Status: Never used Tobacco e-Cigarette/Vaping Use: Never Used Second Hand Smoke Exposure: No Advance Directives: No Advance Directives Information Provided: No service: No Current occupational status: employed Current occupational exposures/hazards: No Gender identity: Female Physical Exam Vital Signs: Vital Signs: Last Vital Signs Temp 98.8 F 06/26/21 07:45 Pulse 77 06/26/21 07:45 Resp 14 06/26/21 07:45 BP 129/80 06/26/21 07:45 Pulse Ox 92 06/26/21 07:45 BMI result Body Mass Index 32.1 Const: General: cooperative, no acute distress and alert Orientation/consciousness: patient oriented x3 HENMT: Head: Yes normal to inspection Ears: TM's normal bilaterally Eyes: General: appearance normal, both eyes and all related structures Eyelids: Yes eyelids normal Conjunctivae: conjunctivae normal Pupils: Equal, round and reactive pupils present Neck: Neck: Yes normal visual inspection and Yes supple Chest: Chest palpation & inspection: normal inspection of the chest Resp: Effort & Inspection: normal respiratory effort Auscultation: clear to auscultation bilaterally Cardio: Rate: regular rate Rhythm: regular rhythm Heart sounds: S1 normal heart sound present, S2 normal heart sound present, no gallops, no murmurs and no rubs GI: Palpation (GI): Soft to palpation, nontender and Other GI palpation findings present (Non-distended) Auscultation: normal bowel sounds Skin: General skin exam: no rashes or lesions noted Neuro: General: patient oriented x3, no focal motor deficits and CN's II-XI intact bilaterally Cranial nerves: Yes Equal, round and reactive pupils present Cognition (Neuro): normal cognition Motor exam (neuro): 5/5 motor strength present throughout Sensory Exam: No Sensory deficit (Neuro) Extrem: General: Yes normal to inspection and Yes no pedal edema Psych: Appearance: grossly normal Affect: normal affect MDM - Dizziness MDM Narrative Medical decision making narrative: Patient with prior history of vertigo, has had a sense of feeling off balance since yesterday. No headache or other neurologic deficit. Patient did have improvement with meclizine. Patient is mildly anemic, has history of anemia, though her anemia is not at the level were I would expect that she would have symptoms of dizziness from it. Will start the patient on iron supplementation Lab Data Attestation: I reviewed the patient's lab results. Result diagrams: 06/26/21 08:10 06/26/21 08:10 Labs: Lab Results 06/26/21 06/26/21 Range/Units 08:10 08:10 WBC 7.5 (4.8-10.8) X10*3/uL RBC 4.25 (4.20-5.50) X10*6/uL Hgb 10.1 L (12.0-16.0) g/dl Hct 32.1 L (37.0-47.0) % MCV 75.5 L (80.0-98.0) fL MCH 23.8 L (27.0-33.0) pg MCHC 31.5 (31.0-35.0) g/dl RDW 16.3 H (11.0-16.0) % Plt Count 235 (160-400) X10*3/uL MPV 10.6 (9.4-12.3) fL Immature Gran % (Auto) 0.1 (0.0-0.4) % Neut % (Auto) 50.9 (45-73) % Lymph % (Auto) 40.1 H (20-40) % [place] % (Auto) 8.1 (2-11) % Eos % (Auto) 0.5 (0-4) % Baso % (Auto) 0.3 (0-2) % Lymph # (Auto) 3.0 (1.2-4.9) X10*3/uL [place] # (Auto) 0.6 (0.1-1.2) X10*3/uL Eos # (Auto) 0.0 (0.0-0.4) X10*3/uL Baso # (Auto) 0.0 (0.0-0.2) X10*3/uL Abs Immat Gran (auto) 0.01 (0.00-0.03) X10*3/uL Absolute Neuts (auto) 3.8 (2.0-8.3) x10*3/uL Absolute Nucleated RBC 0.000 (0.0-0.012) X10*3/uL Nucleated RBC % (auto) 0.0 (0.0-0.2) /100WBC Sodium 139 (135-145) mmol/L Potassium 4.3 (3.3-5.1) mmol/L Chloride 108 (96-108) mmol/L Carbon Dioxide 25 (22-29) mmol/L Anion Gap 10 L (12-20) BUN 10 (9-16) mg/dL Creatinine 0.79 (0.5-1.4) mg/dL Estim Creat Clear Calc 98.7 Estimated GFR > 60 Random Glucose 98 (60-115) mg/dL Calcium 9.7 (8.4-10.2) mg/dL Total Bilirubin 0.3 (0.0-1.0) mg/dL AST 10 (5-31) U/L ALT 10 (0-31) U/L Alkaline Phosphatase 80 (39-117) U/L Total Protein 7.2 (6.5-8.0) g/dL Albumin 4.0 (3.5-5.0) g/dL ECG Data Pacemaker model: Sinus rhythm with a rate of 66. Sinus arrhythmia. No ST-elevation or depr Discharge Plan Discharge Clinical Impression: Vertigo, Anemia Patient Disposition: Home, Self-Care Instructions: Vertigo (ED), Anemia (ED) Additional Instructions: Use the meclizine as prescribed for vertigo. Take iron supplementation as prescribed. Follow up with your primary care physician. Return for any new or worsened symptoms. Stop taking the amoxicillin if it was given to you for your infection, as your ears look normal, and you reported that they did not actually examine you before prescribing the medicine Prescriptions: New meclizine 25 mg tablet 25 mg PO QID PRN (Reason: dizziness) Qty: 30 RF: 0 ferrous sulfate 324 mg (65 mg iron) tablet,delayed release (DR/EC) 324 mg PO BID Qty: 60 RF: 1 No Action amoxicillin 500 mg capsule 500 mg PO Q8H Qty: 30 RF: 0 Interventions: ED Discharge Assessment Last Done: 06/26/21 10:48 Discharge Date/Time: 06/26/21 10:50
[2021-06-26 08:13] LABS: MANUAL DIFF FLAG NO
[2021-06-26 08:15] LABS: Basophils Percent Auto 0.3 % (0-2); Eosinophils Percent Auto 0.5 % (0-4); Hematocrit 32.1 % (37.0-47.0); Hemoglobin 10.1 g/dl (12.0-16.0); Imm Gran Abs Auto 0.01 X10*3/uL (0.00-0.03); Imm Gran Pct Auto 0.1 % (0.0-0.4); Lymphocytes Percent Auto 40.1 % (20-40); Mean Corpuscular HGB Conc 31.5 g/dl (31.0-35.0); Mean Corpuscular Hemoglobin 23.8 pg (27.0-33.0); Mean Corpuscular Volume 75.5 fL (80.0-98.0); Mean Platelet Volume 10.6 fL (9.4-12.3); Monocytes Absolute Auto 0.6 X10*3/uL (0.1-1.2); Monocytes Percent Auto 8.1 % (2-11); Neutrophils Absolute Auto 3.8 x10*3/uL (2.0-8.3); Neutrophils Percent Auto 50.9 % (45-73); Platelet Count 235 X10*3/uL (160-400); Red Blood Count 4.25 X10*6/uL (4.20-5.50); Red Cell Distribution Width 16.3 % (11.0-16.0); White Blood Count 7.5 X10*3/uL (4.8-10.8)
[2021-06-26 08:34] LABS: Alanine Aminotransferase 10 U/L (0-31); Alkaline Phosphatase 80 U/L (39-117); Anion Gap 10 (12-20); Aspartate Amino Transferase 10 U/L (5-31); Bilirubin Total 0.3 mg/dL (0.0-1.0); Blood Urea Nitrogen 10 mg/dL (9-16); Calcium 9.7 mg/dL (8.4-10.2); Carbon Dioxide 25 mmol/L (22-29); Chloride 108 mmol/L (96-108); Creatinine Clr Calc Pharmacy 98.7; Estimated Glomerular Filt Rate > 60; Glucose Random 98 mg/dL (60-115); Potassium 4.3 mmol/L (3.3-5.1); Sodium 139 mmol/L (135-145); Total Protein 7.2 g/dL (6.5-8.0)
[2021-06-26] MEDS: Meclizine HCl 25 MG TABLET 50 MG PO (10:00)
--- NOTE | 2021-06-26 19:02 | PC.NURSE ---
wasting PO ativan 0.5mg with Danyell Romero RN. Pt declined med at discharge.
== END 2021-06-26 10:50 | disposition home or self-care (01) ==
PROVIDERS: Emergency Provider Emergency Medicine; PCP Internal Medicine
DX: R42 Dizziness and giddiness (principal); D64.9 Anemia, unspecified; Z79.899 Other long term (current) drug therapy
CPT/HCPCS: 36415; 80053; 85025; 93005; 99283

== ENCOUNTER 2021-11-29 16:18 | Outpatient (REF) | payer OTHER, SELFPAY ==
[2021-11-30 01:17] LABS: CT PCR NOT DETECTED (Not Detect.); NG PCR NOT DETECTED (Not Detect.)
[2021-11-30 13:37] LABS: BV Int Neg Control Negative (Negative); BV Int Pos Control Positive (Positive)
== END 2021-11-29 16:19 | disposition home or self-care (01) ==
LOC: HO.LAB 16:18
PROVIDERS: Visit Provider Advanced Practice Midwife
DX: Z01.419 Encounter for gynecological examination (general) (routine) without abnormal findings (principal); Z11.3 Encounter for screening for infections with a predominantly sexual mode of transmission
CPT/HCPCS: 87086; 87480; 87491; 87510; 87591; 87660

== ENCOUNTER 2022-03-28 14:51 | Outpatient (REF) | payer OTHER, SELFPAY ==
[2022-03-29 05:19] LABS: CT PCR NOT DETECTED (Not Detect.); NG PCR NOT DETECTED (Not Detect.)
[2022-03-29 09:07] LABS: BV Int Neg Control Negative (Negative); BV Int Pos Control Positive (Positive)
== END 2022-03-28 14:52 | disposition home or self-care (01) ==
LOC: HO.LNP 14:51
PROVIDERS: Visit Provider Advanced Practice Midwife
DX: Z01.419 Encounter for gynecological examination (general) (routine) without abnormal findings (principal)
CPT/HCPCS: 87480; 87491; 87510; 87591; 87660; 88142

== ENCOUNTER 2022-05-30 17:52 | Emergency (ER) | payer OTHER, SELFPAY ==
[2022-05-30 17:53] VITALS: BP 161/83; PULSE 18; RESP 18; TEMP 37.1; O2SAT 100; BMI 30.9
--- NOTE | 2022-05-30 17:59 | ED.URI ---
HPI - URI/Sore Throat General Chief Complaint: Upper Respiratory Symptoms Stated Complaint: cough,sob Time Seen by Provider: 05/30/22 19:25 Source: patient and family Mode of arrival: ambulatory Limitations: no limitations History of Present Illness HPI Narrative: 31-year-old female with history of anemia here with a sore throat, cough, chest discomfort with coughing, difficulty breathing since Friday. No fevers, chills, neck pain, neck stiffness, skin rash, vomiting, diarrhea. No leg swelling or leg pain. Related Data Home Medications Medication Instructions Recorded Confirmed No Known Home Meds 03/28/22 03/28/22 Allergies Allergy/AdvReac Type Severity Reaction Status Date / Time No Known Allergies Allergy Verified 03/28/22 13:50 Review of Systems Review of Systems: Yes all other systems are reviewed and are negative Constitutional: Constitutional: Reports no additional constitutional complaints, Denies body ache(s), Denies chills, Denies fever(s), Denies headache(s) and Denies weakness Eyes: Eyes: Reports no additional eye complaints and Denies change in vision ENT: Reports system reviewed and no additional complaints, except as documented, Denies dizziness, Denies headache(s), Denies nasal congestion, Denies nasal discharge, Denies neck pain and Reports sore throat Cardiovascular: Cardiovascular: Reports no additional cardiovascular complaints, Reports chest pain, Denies leg edema and Reports dyspnea Respiratory: Respiratory: Reports no additional respiratory complaints, Reports cough, Reports dyspnea and Reports wheezing Gastrointestinal: Gastrointestinal: Reports no additional gastrointestinal complaints, Denies abdominal pain, Denies diarrhea, Denies nausea and Denies vomiting Genitourinary: Genitourinary: Reports no additional female genitourinary complaints and Denies urinary incontinence Musculoskeletal: Musculoskeletal: Reports no additional musculoskeletal complaints, Denies back pain, Denies arthralgias, Denies joint swelling, Denies neck pain, Denies numbness and Denies tingling Integumentary/Breasts: Skin/Breast: Reports system reviewed and no additional complaints, except as docu and Denies rash Neurologic: Reports system reviewed and no additional complaints, except as documented, Denies Abnormal speech present, Denies dizziness, Denies headache(s), Denies numbness, Denies tingling and Denies weakness Allergic/Immunologic: Allergic/Immunologic: Reports wheezing PMFSH Past Medical History Attestation statement: The following information was validated with the patient. Source: old records reviewed and nursing notes reviewed Medical History Abdominal pain Anemia Blurry vision Hyperlipemia Irregular menses Surgical History History of tubal ligation Family History Family History Father Diabetes Hypertension Myocardial infarction Mother Hypertension Son In good health Brother In good health Sister In good health Paternal Aunt Stroke Social History Social History Housing: Apartment Alcohol intake: never Patient Tobacco Use Status: Never used Tobacco e-Cigarette/Vaping Use: Never Used Second Hand Smoke Exposure: No Advance Directives: No Advance Directives Information Provided: No service: No Current occupational status: employed Current occupational exposures/hazards: No Gender identity: Female Cognitive needs: No Hearing needs: No Vision needs: No Physical Exam Vital Signs: Vital Signs: Last Vital Signs Temp 98.7 F 05/30/22 17:53 Pulse 18 L 05/30/22 17:53 Resp 18 05/30/22 17:53 BP 161/83 H 05/30/22 17:53 Pulse Ox 100 05/30/22 17:53 O2 Del Method 05/30/22 17:53 BMI result Body Mass Index 30.9 Const: General: cooperative, healthy appearing, comfortable and no acute distress Orientation/consciousness: patient oriented x3 Limitations: no limitations HEENT: Head: Yes normal to inspection Ears: hearing grossly normal bilaterally General nose exam: Normal external nose present Face and sinus: Yes normal facial exam Mouth: Normal oral and palatal mucosa present Throat: Yes posterior oropharynx normal Eyes: General: appearance normal, both eyes and all related structures Pupils: Equal, round and reactive pupils present Neck: Neck: Yes normal visual inspection Chest: Chest palpation & inspection: normal inspection of the chest Resp: Effort & Inspection: normal respiratory effort Auscultation: clear to auscultation bilaterally Cardio: Rate: regular rate Rhythm: regular rhythm Peripheral pulses: Peripheral pulses 2+ throughout GI: Inspection: Yes normal to inspection Palpation (GI): Soft to palpation and nontender Auscultation: normal bowel sounds Back/Spine/Pelvis: Thoracic/Lumbar Spine: thoracic and lumbar spine normal to inspection Skin: General skin exam: no rashes or lesions noted Neuro: General: patient oriented x3, no focal motor deficits and normal sensation to monofilament Cranial nerves: Yes Equal, round and reactive pupils present Cognition (Neuro): normal cognition Speech: No Abnormal speech present Gait exam (Neuro): Normal gait present Motor exam (neuro): 5/5 motor strength present throughout Extrem: General: Yes normal to inspection Course Course Course Narrative: This is a rapid medical exam. Deferred additional HPI, ROS,PE to primary provider. 31 yo female with history of anemia, high cholesterol here with cough, diff breathing, chest pain with coughing since Friday. Will send testing for flu, covid and rsv. VSS Reevaluation(s) Reevaluation #1: Flu screen is positive. No hypoxia or tachypnea. Lungs are clear. Reviewed supportive care at home. Reviewed worrisome signs and symptoms of when to return to the emergency room. Comfortable plan for discharge home. Medical Decision Making Medical Decision Making [facility] Narrative: 31-year-old female here with flu-like symptoms since Friday. Also some chest discomfort with coughing only. Lungs are clear. Vitals stable. Will send testing for flu, COVID, RSV Differential Diagnosis Differential Diagnoses: The differential diagnosis associated with the presentation includes Influenza, viral syndrome Perc 0 Lab Data [facility] Lab Attestation statement: I reviewed the patient's lab results. Labs: Lab Results 05/30/22 Range/Units 18:12 Influenza Type A (PCR) POSITIVE A (Negative) Influenza Type B (PCR) NEGATIVE (Negative) RSV RNA Qual (PCR) NEGATIVE (Negative) SARS-CoV-2 RNA (RT-PCR) NEGATIVE (Negative) Independent Historian Clinical information obtained from an independent historian. History obtained from or confirmed by: Spouse Prescription Management I considered prescription management with: Antiviral We discussed Tamiflu. Patient was symptoms for 4 days so likely would not be beneficial. This was discussed with the patient and the spouse who were agreeable with no treatment with Tamiflu Discharge Plan Discharge Clinical Impression: Influenza Patient Disposition: Home, Self-Care Instructions: Influenza (ED) Additional Instructions: Testing for COVID and RSV are negative. Testing for flu is positive. Increase fluids, rest Take Motrin or Tylenol for pain or fever Prescriptions: No Action No Known Home Meds Referrals: Jaylene Kidd MD [Primary Care Provider] - 1 week Print Language: Icelandic
[2022-05-30 19:01] LABS: Influenza A PCR POSITIVE (Negative); Influenza B PCR NEGATIVE (Negative); Resp Syncy Virus RNA Qual PCR NEGATIVE (Negative); SARS COV2 PCR INHOUSE NEGATIVE (Negative)
== END 2022-05-30 20:05 | disposition home or self-care (01) ==
PROVIDERS: Nurse Practitioner Family; Emergency Provider Emergency Medicine; PCP Internal Medicine
DX: J11.1 Influenza due to unidentified influenza virus with other respiratory manifestations (principal); Z20.822 Contact with and (suspected) exposure to COVID-19
CPT/HCPCS: 0241U; 99282; 99283

== ENCOUNTER 2022-07-08 13:05 | Emergency (ER) | payer OTHER, SELFPAY ==
--- NOTE | ~2022-07-08 | XR_ITS ---
EXAMINATION: XR CHEST CLINICAL INFORMATION: Chest pain. COMPARISON: March 26, 2019. TECHNIQUE: Portable AP view of the chest was obtained. FINDINGS: No significant abnormality is noted involving the heart, lungs, mediastinum, bony thorax or soft tissues. Calcified left upper lobe granuloma, unchanged. XR/XR chest 1V IMPRESSION: Unremarkable examination.
[2022-07-08 13:37] VITALS: BP 161/83; PULSE 61; RESP 18; TEMP 37.1; O2SAT 99; BMI 31.1
--- NOTE | 2022-07-08 13:42 | ECG_ITS ---
Test Reason : chest pain Blood Pressure : / mmHG Vent. Rate : 076 BPM Atrial Rate : 076 BPM P-R Int : 118 ms QRS Dur : 088 ms QT Int : 362 ms P-R-T Axes : 024 024 007 degrees QTc Int : 407 ms Sinus rhythm with marked sinus arrhythmia Otherwise normal ECG When compared with ECG of 26-JUN-2021 08:23, Premature atrial complexes are no longer Present Referred By: Romulo Licona Electronically Signed By:CHE MIRANDA MD
--- NOTE | 2022-07-08 13:43 | ED.GENADULT ---
HPI - General Adult General Chief complaint: Dizziness <CHER Enrique - Last Filed: 07/08/22 19:33> Stated complaint: Dizziness <CHER Enrique - Last Filed: 07/08/22 19:33> Time Seen by Provider: 07/08/22 16:28 <CHER Enrique - Last Filed: 07/08/22 19:33> Source: patient <Zuhair Horowitz MD - Last Filed: 07/08/22 16:56> Mode of arrival: ambulatory <Zuhair Horowitz MD - Last Filed: 07/08/22 16:56> Limitations: no limitations <Zuhair Horowitz MD - Last Filed: 07/08/22 16:56> History of Present Illness HPI narrative: 32-year-old female with no major medical problems presents with dizziness. The symptoms started 3-4 days ago. She describes symptoms as mild to moderate. Worse with moving had her standing up. She denies it as lightheadedness but more similar to unsteadiness. She has had this in the past was told it was vertigo. She denies any significant ear pain or discharge but does have some itchiness in her ear. She has had no fevers, chills, cough or mucus production. She did have slight chest discomfort yesterday but that was associated with heavy lifting from work. She denies any focal neurologic deficits. Is no prior treatment. It was associated with mild nausea but no vomiting. She has been told she has anemia in the past but she denies any recent heavy bleeding. <Zuhair Horowitz MD - Last Filed: 07/08/22 16:56> Related Data Home medications: Previous Rx's Medication Instructions Recorded meclizine 25 mg tablet 25 mg PO TID vertigo #14 tabs 07/08/22 ondansetron 4 mg disintegrating 4 mg PO Q8H PRN nausea and 07/08/22 tablet vomiting #14 tabs <CHER Enrique - Last Filed: 07/08/22 19:33> Allergies/adverse reactions: Allergies Allergy/AdvReac Type Severity Reaction Status Date / Time No Known Allergies Allergy Verified 03/28/22 13:50 <CHER Enrique Last Filed: 07/08/22 19:33> Review of Systems Review of Systems: Yes all other systems are reviewed and are negative <Zuhair Horowitz MD - Last Filed: 07/08/22 16:56> Constitutional: Constitutional: Reports no additional constitutional complaints, Denies body ache(s), Denies chills, Denies fever(s), Denies headache(s) and Denies weakness <Zuhair Horowitz MD - Last Filed: 07/08/22 16:56> Eyes: Eyes: Reports no additional eye complaints and Denies change in vision <Zuhair Horowitz MD - Last Filed: 07/08/22 16:56> ENT: Reports system reviewed and no additional complaints, except as documented, Reports dizziness, Reports otalgia, Denies headache(s), Denies nasal congestion, Denies nasal discharge, Denies neck pain and Reports sore throat <Zuhair Horowitz MD - Last Filed: 07/08/22 16:56> Cardiovascular: Cardiovascular: Reports no additional cardiovascular complaints, Reports chest pain, Denies leg edema and Reports dyspnea <MD Timo Jc Last Filed: 07/08/22 16:56> Respiratory: Respiratory: Reports no additional respiratory complaints, Reports cough, Reports dyspnea and Reports wheezing <Zuhair Horowitz MD - Last Filed: 07/08/22 16:56> Gastrointestinal: Gastrointestinal: Reports no additional gastrointestinal complaints, Denies abdominal pain, Denies diarrhea, Reports nausea and Denies vomiting <Zuhair Horowitz MD - Last Filed: 07/08/22 16:56> Genitourinary: Genitourinary: Reports no additional female genitourinary complaints and Denies urinary incontinence <Zuhair Horowitz MD - Last Filed: 07/08/22 16:56> Musculoskeletal: Musculoskeletal: Reports no additional musculoskeletal complaints, Denies back pain, Denies arthralgias, Denies joint swelling, Denies neck pain, Denies numbness and Denies tingling <Zuhair Horowitz MD - Last Filed: 07/08/22 16:56> Integumentary/Breasts: Skin/Breast: Reports system reviewed and no additional complaints, except as docu and Denies rash <MD Timo Jc Last Filed: 07/08/22 16:56> Neurologic: Reports system reviewed and no additional complaints, except as documented, Denies Abnormal speech present, Reports dizziness, Denies headache(s), Denies numbness, Denies tingling and Denies weakness <Zuhair Horowitz MD - Last Filed: 07/08/22 16:56> Endocrine: Endocrine: Reports no additional endocrine complaints <Zuhair Horowitz MD - Last Filed: 07/08/22 16:56> Hematologic/Lymphatic: Hematologic/Lymphatic: Reports no additional hematologic/lymphatic complaints <Zuhair Horowitz MD - Last Filed: 07/08/22 16:56> Allergic/Immunologic: Allergic/Immunologic: Reports wheezing <Zuhair Horowtiz MD - Last Filed: 07/08/22 16:56> PMFSH Past Medical History Medical History: Medical History Abdominal pain Anemia Blurry vision Hyperlipemia Irregular menses <CHER Enrique - Last Filed: 07/08/22 19:33> Surgical History: Surgical History History of tubal ligation <CHER Enrique - Last Filed: 07/08/22 19:33> Family History Family History: Family History Father Diabetes Hypertension Myocardial infarction Mother Hypertension Son In good health Brother In good health Sister In good health Paternal Aunt Stroke <CHER Enrique - Last Filed: 07/08/22 19:33> Social History Social History: Social History Housing: Apartment Alcohol intake: never Patient Tobacco Use Status: Never used Tobacco e-Cigarette/Vaping Use: Never Used Second Hand Smoke Exposure: No Advance Directives: No Advance Directives Information Provided: No service: No Current occupational status: employed Current occupational exposures/hazards: No Gender identity: Female Cognitive needs: No Hearing needs: No Vision needs: No <CHER Enrique - Last Filed: 07/08/22 19:33> Physical Exam ED Vital Signs: Vital Signs - 24 hr 07/08/22 13:37 07/08/22 17:03 Temperature 98.7 F Pulse Rate 61 73 Respiratory Rate 18 16 Blood Pressure 161/83 H 139/78 Pulse Oximetry 99 99 Oxygen Delivery Method Room Air Room Air BMI result Body Mass Index 31.1 <CHER Enrique - Last Filed: 07/08/22 19:33> Vital Signs - 24 hr 07/08/22 13:37 07/08/22 17:03 Temperature 98.7 F Pulse Rate 61 73 Respiratory Rate 18 16 Blood Pressure 161/83 H 139/78 Pulse Oximetry 99 99 Oxygen Delivery Method Room Air Room Air BMI result Body Mass Index 31.1 <Zuhair Horowitz MD - Last Filed: 07/08/22 16:56> Const General: cooperative, healthy appearing, comfortable, no acute distress, well developed, alert and awake <Zuhair Horowitz MD - Last Filed: 07/08/22 16:56> Orientation/consciousness: patient oriented x3 <Zuhair Horowitz MD - Last Filed: 07/08/22 16:56> HENMT Head: Yes normal to inspection <Zuhair Horowitz MD - Last Filed: 07/08/22 16:56> Ears: hearing grossly normal bilaterally, external ears normal and TM's normal bilaterally <Zuhair Horowitz MD - Last Filed: 07/08/22 16:56> Eyes General: appearance normal, both eyes and all related structures <Zuhair Horowitz MD - Last Filed: 07/08/22 16:56> Alignment and Position: alignment normal <Zuhair Horowitz MD - Last Filed: 07/08/22 16:56> Eyelids: Yes eyelids normal <Zuhair Horowitz MD - Last Filed: 07/08/22 16:56> Neck Neck: Yes normal visual inspection, Yes full ROM, Yes no meningeal signs and Yes supple <Zuhair Horowitz MD - Last Filed: 07/08/22 16:56> Resp Effort & Inspection: normal respiratory effort <Zuhair Horowitz MD - Last Filed: 07/08/22 16:56> Auscultation: clear to auscultation bilaterally <Zuhair Horowitz MD - Last Filed: 07/08/22 16:56> Cardio Rate: regular rate <Zuhair Horowitz MD - Last Filed: 07/08/22 16:56> Rhythm: regular rhythm <Zuhair Horowitz MD - Last Filed: 07/08/22 16:56> Heart sounds: no gallops, no murmurs and no rubs <Zuhair Horowitz MD - Last Filed: 07/08/22 16:56> GI Palpation (GI): Soft to palpation, nontender, no guarding and No hepatosplenomegaly present <Zuhair Horowitz MD - Last Filed: 07/08/22 16:56> Skin Rashes: no rashes <Zuhair Horowitz MD - Last Filed: 07/08/22 16:56> Neuro General: patient oriented x3, gait normal, no meningeal signs, no focal motor deficits and CN's II-XI intact bilaterally <Zuhair Horowitz MD - Last Filed: 07/08/22 16:56> Speech: No Abnormal speech present <Zuhair Horowitz MD - Last Filed: 07/08/22 16:56> Extrem General: Yes normal to inspection and Yes no clubbing, cyanosis or edema <Zuhair Horowitz MD - Last Filed: 07/08/22 16:56> Psych Mental Status: mental status grossly normal <Zuhair Horowitz MD - Last Filed: 07/08/22 16:56> Course Course Course Narrative: RME: 32 yold female presens to the ED for dizziness descrbies as room spinning. patient states having history of vertigo, but has not had a meclizine prescirption since last episode months ago and needs the meds. patient has no neuro defeicits on exam. pateint denies any neuro symptoms of stroke. patietn staes also chest pain everytime she lifts every objects at work. 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 no lower extremity swelling, calf pain, or pleurisy. no ataxai on exam. negative rhomberg EKG and labs ordered. presently no indication for head CT scan. Both ears exams are normal. <CHER Enrique - Last Filed: 07/08/22 19:33> Reevaluation(s) Reevaluation #1: Patient denies any active dizziness at this time. Her examination is nonfocal. Both tympanic membranes are clear bilaterally. I suspect this is peripheral vertigo. There is no focal neurologic deficits suggest a central etiology. She has had this in the past there is no definite indication to have a CT scan at this time based on her physical exam findings. I discussed her results including blood work with mild stable anemia. I reviewed her EKG and other studies as well with her. All questions were addressed and answered. Will discharge patient on meclizine and Zofran <Zuhair Horowitz MD - Last Filed: 07/08/22 16:56> Time: 16:45 <Zuhair Horowitz MD - Last Filed: 07/08/22 16:56> Medical Decision Making Medical Decision Making [facility] Narrative: 32-year-old female with history of mild anemia presents with dizziness which is described as unsteadiness. She denies any focal neurologic deficits. She did have ear itching but no other hearing findings. Her examination was unremarkable. EKG, laboratory analysis will be undertaken. I doubt patient needs a CT scan or MRI at this time given the lack of focal deficits as well as a normal neurologic exam. Will treat patient symptomatically as needed. She currently denies any active symptoms. <Zuhair Horowitz MD - Last Filed: 07/08/22 16:56> Differential Diagnosis Differential Diagnoses: The differential diagnosis associated with the presentation includes (BPPV, Meniere's disease, vestibular neuritis, labyrinthitis, central etiology, otitis, lightheadedness, dizziness, near syncope, arrhythmia, anemia, electrolyte abnormality) <Zuhair Horowitz MD - Last Filed: 07/08/22 16:56> Peripheral vertigo <Zuhair Horowitz MD - Last Filed: 07/08/22 16:56> Admission/Observation Consideration of admission/observation: Escalation of care including admission/observation considered <Zuhair Horowitz MD - Last Filed: 07/08/22 16:56> Lab Data [facility] Lab Attestation statement: I reviewed the patient's lab results. <Zuhair Horowitz MD - Last Filed: 07/08/22 16:56> Result Diagrams: 07/08/22 14:01 07/08/22 14:01 <CHER Enrique - Last Filed: 07/08/22 19:33> Labs: Lab Results 07/08/22 07/08/22 07/08/22 Range/Units 14:01 14:01 14:01 WBC 11.3 H (4.8-10.8) X10*3/uL RBC 4.46 (4.20-5.50) X10*6/uL Hgb 11.8 L (12.0-16.0) g/dl Hct 35.7 L (37.0-47.0) % MCV 80.0 (80.0-98.0) fL MCH 26.5 L (27.0-33.0) pg MCHC 33.1 (31.0-35.0) g/dl RDW 14.6 (11.0-16.0) % Plt Count 280 (160-400) X10*3/uL MPV 10.7 (9.4-12.3) fL Immature Gran % (Auto) 0.3 (0.0-0.4) % Neut % (Auto) 59.7 (45-73) % Lymph % (Auto) 32.8 (20-40) % Teton % (Auto) 6.6 (2-11) % Eos % (Auto) 0.4 (0-4) % Baso % (Auto) 0.2 (0-2) % Lymph # (Auto) 3.7 (1.2-4.9) X10*3/uL [place] # (Auto) 0.8 (0.1-1.2) X10*3/uL Eos # (Auto) 0.0 (0.0-0.4) X10*3/uL Baso # (Auto) 0.0 (0.0-0.2) X10*3/uL Abs Immat Gran (auto) 0.03 (0.00-0.03) X10*3/uL Absolute Neuts (auto) 6.8 (2.0-8.3) x10*3/uL Absolute Nucleated RBC 0.000 (0.0-0.012) X10*3/uL Nucleated RBC % (auto) 0.0 (0.0-0.2) /100WBC PT 12.5 (10.0-13.1) SEC INR 1.1 (0.9-1.1) APTT 31.7 (26.0-36.4) SEC Sodium 139 (135-145) mmol/L Potassium 3.9 (3.3-5.1) mmol/L Chloride 107 (96-108) mmol/L Carbon Dioxide 22 (22-29) mmol/L Anion Gap 14 (12-20) BUN 12 (9-16) mg/dL Creatinine 0.78 (0.5-1.4) mg/dL Estim Creat Clear Calc 97.6 Estimated GFR > 60 Random Glucose 88 (60-115) mg/dL Calcium 9.5 (8.4-10.2) mg/dL Total Bilirubin 0.8 (0.0-1.0) mg/dL AST 12 (5-31) U/L ALT 10 (0-31) U/L Alkaline Phosphatase 82 (39-117) U/L Troponin I High Sens (<3.5-17.0) ng/L Total Protein 7.2 (6.5-8.0) g/dL Albumin 4.2 (3.5-5.0) g/dL Influenza Type A (PCR) (Negative) Influenza Type B (PCR) (Negative) RSV RNA Qual (PCR) (Negative) SARS-CoV-2 RNA (RT-PCR) (Negative) 07/08/22 07/08/22 Range/Units 14:01 14:01 WBC (4.8-10.8) X10*3/uL RBC (4.20-5.50) X10*6/uL Hgb (12.0-16.0) g/dl Hct (37.0-47.0) % MCV (80.0-98.0) fL MCH (27.0-33.0) pg MCHC (31.0-35.0) g/dl RDW (11.0-16.0) % Plt Count (160-400) X10*3/uL MPV (9.4-12.3) fL Immature Gran % (Auto) (0.0-0.4) % Neut % (Auto) (45-73) % Lymph % (Auto) (20-40) % Teton % (Auto) (2-11) % Eos % (Auto) (0-4) % Baso % (Auto) (0-2) % Lymph # (Auto) (1.2-4.9) X10*3/uL [place]eton # (Auto) (0.1-1.2) X10*3/uL Eos # (Auto) (0.0-0.4) X10*3/uL Baso # (Auto) (0.0-0.2) X10*3/uL Abs Immat Gran (auto) (0.00-0.03) X10*3/uL Absolute Neuts (auto) (2.0-8.3) x10*3/uL Absolute Nucleated RBC (0.0-0.012) X10*3/uL Nucleated RBC % (auto) (0.0-0.2) /100WBC PT (10.0-13.1) SEC INR (0.9-1.1) APTT (26.0-36.4) SEC Sodium (135-145) mmol/L Potassium (3.3-5.1) mmol/L Chloride (96-108) mmol/L Carbon Dioxide (22-29) mmol/L Anion Gap (12-20) BUN (9-16) mg/dL Creatinine (0.5-1.4) mg/dL Estim Creat Clear Calc Estimated GFR Random Glucose (60-115) mg/dL Calcium (8.4-10.2) mg/dL Total Bilirubin (0.0-1.0) mg/dL AST (5-31) U/L ALT (0-31) U/L Alkaline Phosphatase (39-117) U/L Troponin I High Sens < 3.5 (<3.5-17.0) ng/L Total Protein (6.5-8.0) g/dL Albumin (3.5-5.0) g/dL Influenza Type A (PCR) NEGATIVE (Negative) Influenza Type B (PCR) NEGATIVE (Negative) RSV RNA Qual (PCR) NEGATIVE (Negative) SARS-CoV-2 RNA (RT-PCR) NEGATIVE (Negative) <CHER Enrique - Last Filed: 07/08/22 19:33> Lab Results 07/08/22 07/08/22 07/08/22 Range/Units 14:01 14:01 14:01 WBC 11.3 H (4.8-10.8) X10*3/uL RBC 4.46 (4.20-5.50) X10*6/uL Hgb 11.8 L (12.0-16.0) g/dl Hct 35.7 L (37.0-47.0) % MCV 80.0 (80.0-98.0) fL MCH 26.5 L (27.0-33.0) pg MCHC 33.1 (31.0-35.0) g/dl RDW 14.6 (11.0-16.0) % Plt Count 280 (160-400) X10*3/uL MPV 10.7 (9.4-12.3) fL Immature Gran % (Auto) 0.3 (0.0-0.4) % Neut % (Auto) 59.7 (45-73) % Lymph % (Auto) 32.8 (20-40) % Teton % (Auto) 6.6 (2-11) % Eos % (Auto) 0.4 (0-4) % Baso % (Auto) 0.2 (0-2) % Lymph # (Auto) 3.7 (1.2-4.9) X10*3/uL [place] # (Auto) 0.8 (0.1-1.2) X10*3/uL Eos # (Auto) 0.0 (0.0-0.4) X10*3/uL Baso # (Auto) 0.0 (0.0-0.2) X10*3/uL Abs Immat Gran (auto) 0.03 (0.00-0.03) X10*3/uL Absolute Neuts (auto) 6.8 (2.0-8.3) x10*3/uL Absolute Nucleated RBC 0.000 (0.0-0.012) X10*3/uL Nucleated RBC % (auto) 0.0 (0.0-0.2) /100WBC PT 12.5 (10.0-13.1) SEC INR 1.1 (0.9-1.1) APTT 31.7 (26.0-36.4) SEC Sodium 139 (135-145) mmol/L Potassium 3.9 (3.3-5.1) mmol/L Chloride 107 (96-108) mmol/L Carbon Dioxide 22 (22-29) mmol/L Anion Gap 14 (12-20) BUN 12 (9-16) mg/dL Creatinine 0.78 (0.5-1.4) mg/dL Estim Creat Clear Calc 97.6 Estimated GFR > 60 Random Glucose 88 (60-115) mg/dL Calcium 9.5 (8.4-10.2) mg/dL Total Bilirubin 0.8 (0.0-1.0) mg/dL AST 12 (5-31) U/L ALT 10 (0-31) U/L Alkaline Phosphatase 82 (39-117) U/L Troponin I High Sens (<3.5-17.0) ng/L Total Protein 7.2 (6.5-8.0) g/dL Albumin 4.2 (3.5-5.0) g/dL Influenza Type A (PCR) (Negative) Influenza Type B (PCR) (Negative) RSV RNA Qual (PCR) (Negative) SARS-CoV-2 RNA (RT-PCR) (Negative) 07/08/22 07/08/22 Range/Units 14:01 14:01 WBC (4.8-10.8) X10*3/uL RBC (4.20-5.50) X10*6/uL Hgb (12.0-16.0) g/dl Hct (37.0-47.0) % MCV (80.0-98.0) fL MCH (27.0-33.0) pg MCHC (31.0-35.0) g/dl RDW (11.0-16.0) % Plt Count (160-400) X10*3/uL MPV (9.4-12.3) fL Immature Gran % (Auto) (0.0-0.4) % Neut % (Auto) (45-73) % Lymph % (Auto) (20-40) % Teton % (Auto) (2-11) % Eos % (Auto) (0-4) % Baso % (Auto) (0-2) % Lymph # (Auto) (1.2-4.9) X10*3/uL [place] # (Auto) (0.1-1.2) X10*3/uL Eos # (Auto) (0.0-0.4) X10*3/uL Baso # (Auto) (0.0-0.2) X10*3/uL Abs Immat Gran (auto) (0.00-0.03) X10*3/uL Absolute Neuts (auto) (2.0-8.3) x10*3/uL Absolute Nucleated RBC (0.0-0.012) X10*3/uL Nucleated RBC % (auto) (0.0-0.2) /100WBC PT (10.0-13.1) SEC INR (0.9-1.1) APTT (26.0-36.4) SEC Sodium (135-145) mmol/L Potassium (3.3-5.1) mmol/L Chloride (96-108) mmol/L Carbon Dioxide (22-29) mmol/L Anion Gap (12-20) BUN (9-16) mg/dL Creatinine (0.5-1.4) mg/dL Estim Creat Clear Calc Estimated GFR Random Glucose (60-115) mg/dL Calcium (8.4-10.2) mg/dL Total Bilirubin (0.0-1.0) mg/dL AST (5-31) U/L ALT (0-31) U/L Alkaline Phosphatase (39-117) U/L Troponin I High Sens < 3.5 (<3.5-17.0) ng/L Total Protein (6.5-8.0) g/dL Albumin (3.5-5.0) g/dL Influenza Type A (PCR) NEGATIVE (Negative) Influenza Type B (PCR) NEGATIVE (Negative) RSV RNA Qual (PCR) NEGATIVE (Negative) SARS-CoV-2 RNA (RT-PCR) NEGATIVE (Negative) <Zuhair Horowitz MD - Last Filed: 07/08/22 16:56> Independent Interpretation I performed an independent interpretation of an: EKG (Normal sinus rhythm with sinus arrhythmia, high-voltage, normal intervals, no acute ST elevations or depressions, nonspecific T-wave changes noted in lead 3, AVF) and Plain X-Ray (Chest x-ray no acute cardiopulmonary disease) <Zuhair Horowitz MD - Last Filed: 07/08/22 16:56> Tests considered The following testing was considered but not selected: CT head - no focal deficits <Zuhair Horowitz MD - Last Filed: 07/08/22 16:56> Prescription Management I considered prescription management with: Other (Dizziness medications) <Zuhair Horowitz MD - Last Filed: 07/08/22 16:56> Chronic Conditions Patient?s care impacted by: Other (Anemia) <Zuhair Horowitz MD - Last Filed: 07/08/22 16:56> Discharge Plan Discharge Clinical Impression: Episodic peripheral vertigo, Anemia <CHER Enrique - Last Filed: 07/08/22 19:33> Patient Disposition: Home, Self-Care <CHER Enrique - Last Filed: 07/08/22 19:33> Instructions: Vertigo (ED), Anemia (ED) <CHER Enrique - Last Filed: 07/08/22 19:33> Additional Instructions: Follow-up with your primary care doctor in less than 1 week for continued symptoms. For more severe symptoms, do not hesitate to follow up in the emergency department for evaluation <CHER Enrique - Last Filed: 07/08/22 19:33> Prescriptions: New meclizine 25 mg tablet 25 mg PO TID Qty: 14 0RF ondansetron 4 mg tablet,disintegrating 4 mg PO Q8H PRN (Reason: nausea and vomiting) Qty: 14 0RF <CHER Enrique - Last Filed: 07/08/22 19:33> Interventions: ED Discharge Assessment Last Done: 07/08/22 17:04 <CHER Enrique - Last Filed: 07/08/22 19:33> Discharge Date/Time: 07/08/22 17:05 <CHER Enrique - Last Filed: 07/08/22 19:33> Print Language: Mongolian <CHER Enrique - Last Filed: 07/08/22 19:33>
[2022-07-08 14:07] LABS: MANUAL DIFF FLAG NO
[2022-07-08 14:10] LABS: Basophils Percent Auto 0.2 % (0-2); Eosinophils Percent Auto 0.4 % (0-4); Hematocrit 35.7 % (37.0-47.0); Hemoglobin 11.8 g/dl (12.0-16.0); Imm Gran Abs Auto 0.03 X10*3/uL (0.00-0.03); Imm Gran Pct Auto 0.3 % (0.0-0.4); Lymphocytes Absolute Auto 3.7 X10*3/uL (1.2-4.9); Lymphocytes Percent Auto 32.8 % (20-40); Mean Corpuscular HGB Conc 33.1 g/dl (31.0-35.0); Mean Corpuscular Hemoglobin 26.5 pg (27.0-33.0); Mean Platelet Volume 10.7 fL (9.4-12.3); Monocytes Absolute Auto 0.8 X10*3/uL (0.1-1.2); Monocytes Percent Auto 6.6 % (2-11); Neutrophils Absolute Auto 6.8 x10*3/uL (2.0-8.3); Neutrophils Percent Auto 59.7 % (45-73); Platelet Count 280 X10*3/uL (160-400); Red Blood Count 4.46 X10*6/uL (4.20-5.50); Red Cell Distribution Width 14.6 % (11.0-16.0); White Blood Count 11.3 X10*3/uL (4.8-10.8)
[2022-07-08 14:22] LABS: INTERNATIONAL NORM RATIO 1.1 (0.9-1.1); Prothrombin Time 12.5 SEC (10.0-13.1)
[2022-07-08 14:25] LABS: Partial Thromboplastin Time 31.7 SEC (26.0-36.4)
[2022-07-08 14:28] LABS: Alanine Aminotransferase 10 U/L (0-31); Albumin Level 4.2 g/dL (3.5-5.0); Alkaline Phosphatase 82 U/L (39-117); Anion Gap 14 (12-20); Aspartate Amino Transferase 12 U/L (5-31); Bilirubin Total 0.8 mg/dL (0.0-1.0); Blood Urea Nitrogen 12 mg/dL (9-16); Calcium 9.5 mg/dL (8.4-10.2); Carbon Dioxide 22 mmol/L (22-29); Chloride 107 mmol/L (96-108); Creatinine Clr Calc Pharmacy 97.6; Estimated Glomerular Filt Rate > 60; Glucose Random 88 mg/dL (60-115); Potassium 3.9 mmol/L (3.3-5.1); Sodium 139 mmol/L (135-145); Total Protein 7.2 g/dL (6.5-8.0)
[2022-07-08 14:37] LABS: Troponin-I High Sensitivity < 3.5 ng/L (<3.5-17.0)
[2022-07-08 14:58] LABS: Influenza A PCR NEGATIVE (Negative); Influenza B PCR NEGATIVE (Negative); Resp Syncy Virus RNA Qual PCR NEGATIVE (Negative); SARS COV2 PCR INHOUSE NEGATIVE (Negative)
[2022-07-08 17:03] VITALS: BP 139/78; PULSE 73; RESP 16; O2SAT 99
== END 2022-07-08 17:05 | disposition home or self-care (01) ==
PROVIDERS: Physician Assistant; Emergency Provider Emergency Medicine; PCP Internal Medicine
DX: H81.399 Other peripheral vertigo, unspecified ear (principal); D64.9 Anemia, unspecified; Z20.822 Contact with and (suspected) exposure to COVID-19; Z20.828 Contact with and (suspected) exposure to other viral communicable diseases; E78.5 Hyperlipidemia, unspecified; E66.9 Obesity, unspecified; Z68.31 Body mass index [BMI] 31.0-31.9, adult
CPT/HCPCS: 0241U; 71045; 80053; 84484; 85025; 85610; 85730; 93005; 99283

== ENCOUNTER 2022-11-12 07:55 | Emergency (ER) | payer OTHER, SELFPAY ==
[2022-11-12 08:10] VITALS: BP 132/58; PULSE 63; RESP 18; TEMP 36.9; O2SAT 98; BMI 31.2
--- NOTE | 2022-11-12 08:28 | ED.GENADULT ---
HPI - General Adult General Chief complaint: Upper Respiratory Symptoms Stated complaint: Sore Throat Ear Pain Time Seen by Provider: 11/12/22 08:24 Source: patient Mode of arrival: ambulatory Limitations: no limitations History of Present Illness HPI narrative: hoarse voice for 3 days now with ear pain. No one else sick at home. 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 No fever. Onset (ago): day(s) Severity: mild Related Data Previous Rx's Medication Instructions Recorded mometasone 50 mcg/actuation nasal 2 spray intranasal DAILY #17 grams 11/12/22 spray prednisone 20 mg tablet 60 mg PO DAILY #15 tabs 11/12/22 Allergies Allergy/AdvReac Type Severity Reaction Status Date / Time No Known Allergies Allergy Verified 11/12/22 08:13 Review of Systems Review of Systems: Yes all other systems are reviewed and are negative ENT: Comments: sore throat, ear pain PMFSH Past Medical History Medical History Abdominal pain Anemia Blurry vision Hyperlipemia Irregular menses Surgical History History of tubal ligation Family History Family History Father Diabetes Hypertension Myocardial infarction Mother Hypertension Son In good health Brother In good health Sister In good health Paternal Aunt Stroke Social History Social History Housing: Apartment Alcohol intake: never Patient Tobacco Use Status: Never used Tobacco e-Cigarette/Vaping Use: Never Used Second Hand Smoke Exposure: No Advance Directives: No service: No Current occupational status: employed Current occupational exposures/hazards: No Gender identity: Female Cognitive needs: No Hearing needs: No Vision needs: No Physical Exam ED Vital Signs: Vital Signs - 24 hr 11/12/22 08:10 Temperature 98.5 F Pulse Rate 63 Respiratory Rate 18 Blood Pressure 132/58 L Pulse Oximetry 98 Oxygen Delivery Method Room Air BMI result Body Mass Index 31.2 Const General: healthy appearing Nutritional Appearance: average body habitus Orientation/consciousness: oriented to person and patient oriented x3 Limitations: no limitations HENMT Head: Yes normal to inspection Ears: external ears normal General nose exam: Normal external nose present Mouth: Normal oral and palatal mucosa present and oropharynx normal Throat: Yes posterior oropharynx normal Eyes General: appearance normal, both eyes and all related structures Neck Neck: Yes normal visual inspection Chest Chest palpation & inspection: normal inspection of the chest Resp Auscultation: clear to auscultation bilaterally Cardio Jugular venous distension: no JVD Rate: regular rate Rhythm: regular rhythm Heart sounds: S1 normal heart sound present and S2 normal heart sound present GI Inspection: Yes normal to inspection Palpation (GI): Soft to palpation, nontender and No hepatosplenomegaly present Auscultation: normal bowel sounds General: Yes no CVA tenderness Back/Spine/Pelvis Back: no CVA tenderness Skin General skin exam: no rashes or lesions noted Neuro General: oriented to person and patient oriented x3 Cranial nerves: Yes CN's II-XII intact bilaterally Motor exam (neuro): 5/5 motor strength present throughout Extrem General: Yes normal to inspection Psych Appearance: grossly normal Course Reevaluation(s) Reevaluation #1: patient with likely viral URI will dc on nasonex and prednisone for laryngitis Time: 08:37 Medical Decision Making Differential Diagnosis Differential Diagnoses: The differential diagnosis associated with the presentation includes (strep throat, laryngitis, Viral URI, pharyngitis) Lab Data MDM Lab Attestation statement: I reviewed the patient's lab results. Labs: Lab Results 11/12/22 Range/Units 08:16 S. pyogenes GrpA BRO Negative (Negative) Tests considered The following testing was considered but not selected: I considered obtaining a CXR but patients lungs are clear, no respiratory distress. I considered a viral panel but patient is well appearing Prescription Management I considered prescription management with: Antibiotic (Strep was negative so I did not prescribe abx) Discharge Plan Discharge Clinical Impression: Upper respiratory tract infection, Laryngitis Patient Disposition: Home, Self-Care Instructions: Pharyngitis (ED), Laryngitis (ED), Upper Respiratory Infection (DC) Prescriptions: New prednisone 20 mg tablet 60 mg PO DAILY Qty: 15 0RF mometasone 50 mcg/actuation spray,non-aerosol 2 spray intranasal DAILY Qty: 17 0RF Rx Instructions: administer into each nostril Referrals: Jaylene Kidd MD [Primary Care Provider] - 10 days
[2022-11-12 08:30] LABS: IDNOW Serial# 6674DD1D; Strep A Nucleic Acid Negative (Negative)
== END 2022-11-12 08:56 | disposition home or self-care (01) ==
PROVIDERS: Emergency Provider Emergency Medicine; PCP Internal Medicine
DX: J06.9 Acute upper respiratory infection, unspecified (principal); J04.0 Acute laryngitis; R07.0 Pain in throat; H92.01 Otalgia, right ear
CPT/HCPCS: 87651; 99282; 99283

== ENCOUNTER 2022-12-09 15:10 | Outpatient (REF) | payer OTHER, SELFPAY ==
[2022-12-11 20:34] LABS: HPV mRNA E6/E7 rflx Not Detected (Not Detected)
== END 2022-12-09 15:11 | disposition home or self-care (01) ==
LOC: HO.LNP 15:10
PROVIDERS: PCP Internal Medicine; Visit Provider Advanced Practice Midwife
DX: Z12.4 Encounter for screening for malignant neoplasm of cervix (principal); Z11.51 Encounter for screening for human papillomavirus (HPV)
CPT/HCPCS: 87624; 88142; 99212

== ENCOUNTER 2022-12-09 15:10 | Outpatient (AMB) | payer OTHER, SELFPAY ==
[2022-12-09 15:16] VITALS: BP 123/76; BMI 30.8
--- NOTE | 2022-12-09 15:16 | MHC.OFFVIS ---
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 PFSH Medical History Abdominal pain Anemia Blurry vision Hyperlipemia Irregular menses Surgical History History of tubal ligation Family History Father Diabetes Hypertension Myocardial infarction Mother Hypertension Son In good health Brother In good health Sister In good health Paternal Aunt Stroke Social History Housing: Apartment Alcohol intake: never Patient Tobacco Use Status: Never used Tobacco e-Cigarette/Vaping Use: Never Used Second Hand Smoke Exposure: No service: No Current occupational status: employed Current occupational exposures/hazards: No Gender identity: Female Cognitive needs: No Hearing needs: No Vision needs: No Female Reproductive History Menstrual Age of Menarche: 14 Duration of menses: 3-5 days Date of last menstrual period: 11/28/22 control method: none Total pregnancies: 2 Full term: 2 Number of Living Children: 2 Date of last pap smear: 05/14/19 (negative) Physical Exam Vital Signs: Last Vital Signs BP 123/76 12/09/22 15:16 BMI result Body Mass Index 30.8 External Female Exam: normal external appearance and normal appearance of the urethra Speculum Exam - Vagina: normal appearance of the vagina and normal vaginal discharge Speculum Exam - Cervix: normal appearance of the cervix and Cervical os closed Results Reviewed Results Reviewed: Pap of 03/28/2022 was unsatisfactory. Assessment & Plan Assessment & Plan (1) Cervical cancer screening: Comment: History of negative Pap 2019. pap done 03/28/22= unsatisfactory Pap being repeated 12/09/2022. Code(s): Z12.4 - Encounter for screening for malignant neoplasm of cervix Plan Pap repeated today she has no worries at all about STDs. Cervical discharge appeared clear with cervix appeared healthy patient's last menstrual period was 629 so she is most likely midcycle.. Await Pap results and see her for annuals. Orders: Orders Pap Smear Today Z12.4 - Encounter for screening for malignant neoplasm of cervix Coding Level of Care Code Est Pt Level 3 (58989) Diagnoses Cervical cancer screening Z12.4
== END 2022-12-09 15:35 | disposition home or self-care (01) ==
LOC: HO.HWS 15:10
PROVIDERS: PCP Internal Medicine; Visit Provider Advanced Practice Midwife
DX: Z12.4 Encounter for screening for malignant neoplasm of cervix (principal)
CPT/HCPCS: 99213

== ENCOUNTER 2023-02-13 09:38 | Emergency (ER) | payer OTHER, SELFPAY ==
[2023-02-13 09:39] VITALS: BP 150/81; PULSE 99; RESP 19; TEMP 36.6; O2SAT 99; BMI 28.3
[2023-02-13] MEDS: Ibuprofen 600 MG TABLET PO (11:25)
[2023-02-13] MEDS: Acetaminophen 325 MG TABLET 975 MG PO (11:25)
--- NOTE | 2023-02-13 11:30 | PC.NURSE ---
pt medicated per MAR for 10/10 back pain, worse with movement, urine sample collected and sent to lab. no new orders at this time.
[2023-02-13 11:43] LABS: Appearance Urine Cloudy; Color Urine Yellow; Glucose Urine UA Negative (Negative); Leukocyte Esterase Urine Large (3+) (Negative); Nitrite Urine Negative (Negative); UMIC TRIGGER UACC YES; Urine Blood Negative (Negative); Urine Ketones Negative (Negative); Urine Protein Negative (Neg-Trace)
[2023-02-13 11:46] LABS: Bacteria Urine 1+ (None Seen); Hyaline Casts Urine 0-2 /LPF (0-2); UACC Culture Trigger YES; WBC Urine >50 /HPF (0-5)
--- NOTE | 2023-02-13 11:53 | ED_ITS ---
HPI - Back Pain/Injury General Chief Complaint: Back Pain/Injury Stated Complaint: lower back pain Time Seen by Provider: 02/13/23 10:51 Source: patient Mode of arrival: ambulatory Limitations: no limitations History of Present Illness HPI Narrative: 32-year-old female with no major medical problems presents with right lower back pain. Started 2 days ago. The pain is moderate to severe. She describes the pain as a sharp pain that is worse with ambulation. The pain does not radiate. There was no loss of bowel or bladder control. There are no saddle paresthesias. Patient denies any acute trauma, twisting or heavy lifting. She was getting out of bed and then developed sudden onset pain. She denies any vaginal bleeding or discharge. She does have urinary frequency but no urgency, dysuria. She denies any fevers or chills. She denies any respiratory complaints. Prior treatment included Lucho-Ziegler. Related Data Previous Rx's Medication Instructions Recorded cyclobenzaprine 10 mg tablet 10 mg PO TID PRN muscle spasm #7 02/13/23 tabs meloxicam 15 mg tablet 15 mg PO DAILY #10 tabs 02/13/23 Allergies Allergy/AdvReac Type Severity Reaction Status Date / Time No Known Allergies Allergy Verified 02/13/23 09:38 Review of Systems Review of Systems: CONSTITUTIONAL: Denies weight loss, fever and chills. HEENT: Denies changes in vision and hearing. RESPIRATORY: Denies SOB and cough. CV: Denies palpitations no CP. GI: Denies abdominal pain, nausea, vomiting and diarrhea. : Denies dysuria and urinary frequency. MSK: + myalgia and joint pain. SKIN: Denies rash and pruritus. NEUROLOGICAL: Denies headache and syncope. PSYCHIATRIC: Denies recent changes in mood. Denies anxiety and depression. All other ROS are negative unless in HPI PMFSH Past Medical History Medical History Abdominal pain Anemia Blurry vision Hyperlipemia Irregular menses Surgical History History of tubal ligation Family History Family History Father Diabetes Hypertension Myocardial infarction Mother Hypertension Son In good health Brother In good health Sister In good health Paternal Aunt Stroke Social History Social History Housing: Apartment Alcohol intake: never Patient Tobacco Use Status: Never used Tobacco e-Cigarette/Vaping Use: Never Used Second Hand Smoke Exposure: No Advance Directives: No Advance Directives Information Provided: No service: No Current occupational status: employed Current occupational exposures/hazards: No Gender identity: Female Cognitive needs: No Hearing needs: No Vision needs: No Physical Exam Vital Signs: Vital Signs: Last Vital Signs Temp 98 F 02/13/23 09:39 Pulse 99 02/13/23 09:39 Resp 19 02/13/23 09:39 BP 150/81 H 02/13/23 09:39 Pulse Ox 99 02/13/23 09:39 O2 Del Method Room Air 02/13/23 09:39 BMI result Body Mass Index 28.3 GEN: Well developed, no acute distress, alert, oriented HEENT: Normocephalic, atraumatic, normal external ears, nose appears normal, no oropharyngeal edema or exudates Eyes: Normal to appearance Neck: Supple, no lymphadenopathy Respiratory: Talks in complete sentences, no respiratory distress, clear to auscultation bilaterally Cardiovascular: Regular rate and rhythm, no murmurs rubs or gallops Abdomen: Soft, nontender, nondistended, no guarding, no rebound Back: No CVA tenderness Extremities: No clubbing cyanosis or edema Neurologic: No focal neurologic deficits, cranial nerves 2-12 intact, strength is 5/5 bilaterally Skin: No rash Course Course Course Narrative: Patient's pain is somewhat improved. I discussed results of her urinalysis which does in fact demonstrate urinary tract infection. However, I do not believe her back pain is actually related to that. Appears to be more musculoskeletal. Will treat for UTI. Additionally, patient will be treated for musculoskeletal pain. Medications Administered Discontinued Medications Generic Name Dose Route Start Last Admin Trade Name Freq PRN Reason Stop Dose Admin Acetaminophen 975 mg 02/13/23 11:03 02/13/23 11:25 Acetaminophen 325 Mg Tablet PO 02/13/23 11:04 975 mg ONCE ONE Administration Cephalexin HCl 500 mg 02/13/23 11:57 02/13/23 12:02 Cephalexin 500 Mg Capsule PO 02/13/23 11:58 500 mg ONCE ONE Administration Ibuprofen 600 mg 02/13/23 11:08 02/13/23 11:25 Ibuprofen 600 Mg Tablet PO 02/13/23 11:09 600 mg ONCE ONE Administration Medical Decision Making Medical Decision Making [facility] Narrative: This patient presents with back pain most consistent with musculoskeletal back pain. Differential diagnosis includes lumbago, muscular spasm, strain, sprain. There are no red flag on history or physical. Presentation is not consistent with malignancy, fracture, cauda equina syndrome, AAA, viscus perforation, PE, renal colic, pyelonephritis especially given no CVA tenderness. There is no indication for emergent imaging at this time. Plan will be to control pain, check urinalysis and re-evaluate. Differential Diagnosis Differential Diagnoses: The differential diagnosis associated with the presentation includes (See above) Lab Data MDM Lab Attestation statement: I reviewed the patient's lab results. Labs: Lab Results 02/13/23 Range/Units 11:26 Urine Color Yellow Urine Appearance Cloudy Urine pH 8.0 (5.0-9.0) Ur Specific [place] 1.010 (1.005-1.025) Urine Protein Negative (Neg-Trace) mg/dL Urine Glucose (UA) Negative (Negative) mg/dL Urine Ketones Negative (Negative) mg/dL Urine Blood Negative (Negative) Urine Nitrite Negative (Negative) Ur Leukocyte Esterase Large (3+) H (Negative) Urine RBC 3-5 H (0-2) /HPF Urine WBC >50 H (0-5) /HPF Ur Squamous Epith Cells 6-10 (0-2) /HPF Urine Bacteria 1+ (None Seen) Hyaline Casts 0-2 (0-2) /LPF Consistent with urinary tract infection Independent Historian Clinical information obtained from an independent historian. History obtained from or confirmed by: Friend Prescription Management I considered prescription management with: Pain Medication Discharge Plan Discharge Clinical Impression: Strain of lumbar region, Acute lower UTI Patient Disposition: Home, Self-Care Instructions: Urinary Tract Infection in Women (ED), Back Pain (ED) Additional Instructions: For pain: 1) meloxicam 15 mg daily for 7 days To) Tylenol 1000 mg every 6 hours as needed for additional pain relief 3) cyclobenzaprine 10 mg every 8 hours as needed for muscle spasm, may cause drowsiness 4) capsaicin cream 3-4 times daily as needed Prescriptions: New meloxicam 15 mg tablet 15 mg PO DAILY Qty: 10 0RF cyclobenzaprine 10 mg tablet 10 mg PO TID PRN (Reason: muscle spasm) Qty: 7 0RF Referrals: Jaylene Kidd MD [Primary Care Provider] - 1 week Stand Alone Forms: Work/School Release
[2023-02-13] MEDS: cephALEXin 500 MG CAPSULE PO (12:02)
--- NOTE | 2023-02-13 12:03 | PC.NURSE ---
pt medicated per JUL, reports improvement in pain.
== END 2023-02-13 12:16 | disposition home or self-care (01) ==
PROVIDERS: Emergency Provider Emergency Medicine; PCP Internal Medicine
DX: S39.012A Strain of muscle, fascia and tendon of lower back, initial encounter (principal); X50.9XXA Other and unspecified overexertion or strenuous movements or postures, initial encounter; N39.0 Urinary tract infection, site not specified; Y93.84 Activity, sleeping; Y92.013 Bedroom of single-family (private) house as the place of occurrence of the external cause; Y99.9 Unspecified external cause status
CPT/HCPCS: 81001; 87086; 99283

== ENCOUNTER 2023-10-18 09:31 | Outpatient (REF) | payer OTHER, SELFPAY ==
[2023-10-18 09:41] LABS: MANUAL DIFF FLAG NO
[2023-10-18 10:25] LABS: Basophils Percent Auto 0.3 % (0-2); Eosinophils Absolute Auto 0.1 X10*3/uL (0.0-0.4); Eosinophils Percent Auto 0.8 % (0-4); Hematocrit 35.7 % (37.0-47.0); Hemoglobin 11.6 g/dl (12.0-16.0); Imm Gran Abs Auto 0.01 X10*3/uL (0.00-0.03); Imm Gran Pct Auto 0.1 % (0.0-0.4); Mean Corpuscular HGB Conc 32.5 g/dl (31.0-35.0); Mean Corpuscular Hemoglobin 26.9 pg (27.0-33.0); Mean Corpuscular Volume 82.6 fL (80.0-98.0); Mean Platelet Volume 10.9 fL (9.4-12.3); Monocytes Absolute Auto 0.6 X10*3/uL (0.1-1.2); Monocytes Percent Auto 7.8 % (2-11); Neutrophils Absolute Auto 3.4 x10*3/uL (2.0-8.3); Platelet Count 252 X10*3/uL (160-400); Red Blood Count 4.32 X10*6/uL (4.20-5.50); Red Cell Distribution Width 13.9 % (11.0-16.0); White Blood Count 7.1 X10*3/uL (4.8-10.8)
[2023-10-18 11:13] LABS: Alanine Aminotransferase 13 U/L (0-31); Albumin Level 4.1 g/dL (3.5-5.0); Alkaline Phosphatase 81 U/L (39-117); Anion Gap 13 (12-20); Aspartate Amino Transferase 13 U/L (5-31); Bilirubin Total 0.5 mg/dL (0.0-1.0); Blood Urea Nitrogen 12 mg/dL (9-16); Calcium 8.9 mg/dL (8.4-10.2); Carbon Dioxide 24 mmol/L (22-29); Chloride 106 mmol/L (96-108); Cholesterol 195 mg/dL (<200); Estimated Glomerular Filt Rate > 60; Glucose Fasting 81 mg/dL (60-99); HDL Cholesterol 40 mg/dL (>40); LDL Cholesterol Calculated 128 mg/dL (<100); Potassium 3.9 mmol/L (3.3-5.1); Sodium 139 mmol/L (135-145); Total Protein 7.3 g/dL (6.5-8.0); Triglycerides 135 mg/dL (<150)
[2023-10-18 11:32] LABS: Thyroid Stimulating Hormone 0.88 uIU/mL (0.32-4.0)
== END 2023-10-18 09:32 | disposition home or self-care (01) ==
LOC: HO.LAB 09:31
PROVIDERS: PCP Internal Medicine; Visit Provider Internal Medicine
DX: E66.9 Obesity, unspecified (principal)
CPT/HCPCS: 36415; 80053; 80061; 84443; 85025

== ENCOUNTER 2023-10-21 16:42 | Outpatient (AMB) | payer OTHER, SELFPAY ==
--- NOTE | 2023-10-21 16:45 | A.OFFPC_ITS ---
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 Last Pap smear was 2022 and was normal. No chest pain or shortness of breath. Labs were discussed. [facility] Medical History (Updated 10/21/23 @ 17:12 by Jaylene Irvin MD) Abdominal pain Irregular menses Blurry vision Anemia Hyperlipemia Surgical History History of tubal ligation Family History Father Diabetes Hypertension Myocardial infarction Mother Hypertension Son In good health Brother In good health Sister In good health Paternal Aunt Stroke Social History Housing: Apartment Alcohol intake: never Patient Tobacco Use Status: Never used Tobacco e-Cigarette/Vaping Use: Never Used Second Hand Smoke Exposure: No service: No Current occupational status: employed Current occupational exposures/hazards: No Gender identity: Female Cognitive needs: No Hearing needs: No Vision needs: No Female Reproductive History Menstrual Age of Menarche: 14 Questionnaire PHQ-9 Over the last 2 weeks, how often have you been bothered by any of the following problems? 1. Little interest or pleasure in doing things: not at all 2. Feeling down, depressed, or hopeless: not at all 3. Trouble falling or staying asleep, or sleeping too much: not at all 4. Feeling tired or having little energy: not at all 5. Poor appetite or overeating: not at all 6. Feeling bad about yourself - or that you are a failure or have let yourself or your family down: not at all 7. Trouble concentrating on things, such as reading the newspaper or watching television: not at all 8. Moving or speaking so slowly that other people could have noticed. Or the opposite - being so fidgety or restless that you have been moving around a lot more than usual: not at all 9. Thoughts that you would be better off or of hurting yourself in some way: not at all Total score: 0 Depression Screening Interpretation: Negative Depression Screening Done: Yes 85756 - PHQ-9 Billing: Yes Source: Developed by Drs. Ryan Zee, Aminata Keating, Suleiman Hsu and colleagues, with an educational artur from [employer]. Thrive Questionnaire Date Thrive assessed: 10/21/23 I am a: Patient What is your living situation today?: I have a steady place to live Within the past 12 months, did the food you bought not last and you didn't have the money to get more?: Never true Within the past 12 months, did you worry whether your food would run out before you got money to buy more?: Never true Do you have trouble paying for medicines?: No Do you have trouble getting transportation to medical appointments?: No Do you have trouble paying your heating and electricity bill?: No Do you have trouble taking care of your child, family member or friend?: No Do you have trouble with day-to-day activities such as bathing, preparing meals, shopping, managing finances, etc.?: No Are you currently unemployed and looking for a job?: No Are you interested in more education?: No Please select the resources that you would like help with: None Currently or been in a relationship where the following occur: no concerns reported THRIVE Score: 0 AUDIT C Alcohol Use Questionnaire (AUDIT-C) 1. How often do you have a drink containing alcohol?: Never Total Score: 0 Score Reviewed/Action Taken: No ADRIEL-7 AMB Questionnaire ADRIEL-7 Date ADRIEL - 7 assessed: 10/21/23 Feeling nervous, anxious, or on edge: 0 = Not at all Not being able to stop or control worryin = Not at all Worrying too much about different things: 0 = Not at all Trouble relaxin = Not at all Being so restless that it is hard to sit still: 0 = Not at all Becoming easily annoyed or irritable: 0 = Not at all Feeling afraid as if something awful might happen: 0 = Not at all Total ADRIEL-7 score (0-4 normal; 5-9 mild; 10-14 moderate; 15-21 severe): 0 Source: Developed by Drs. Ryan Zee, Aminata Keating, Suleiman Hsu and colleagues, with an educational artur from [employer]. ADRIEL-7 Assessment Billing ADRIEL-7 Assessment Tool: ADRIEL-7 Assessment 07830 Review of Systems Const All systems reviewed & are unremarkable except as noted in HPI and below Eyes Reports no additional complaints, Denies change in vision and Denies other visual disturbances Card Denies chest pain at rest, Denies chest pain with activity, Denies edema, Denies irregular heart rhythm, Denies claudication, Denies dyspnea, Denies dyspnea on exertion, Denies orthopnea, Denies paroxysmal nocturnal dyspnea and Denies slow heart rate Resp Denies cough, Denies dyspnea and Denies dyspnea on exertion GI Denies abdominal pain, Denies change in bowel habits, Denies excessive flatus, Denies nausea and Denies vomiting Denies urinary incontinence, Denies urinary hesitancy and Denies urinary urgency Neuro Denies confusion Psych Denies confusion Physical exam (Primary Care) Vital Signs: Last Vital Signs BP 130/82 10/21/23 16:47 BMI result Body Mass Index 31.1 Tobacco/Smoking Status: Tobacco use Status Tobacco use date assessed 10/21/23 10/21/23 16:50 Patient Tobacco Use Status Never used Tobacco 10/21/23 16:50 e-Cigarette/Vaping Use Never Used 10/21/23 16:50 PHQ-9: PHQ-9 Score PHQ-9: Total score 0 10/21/23 16:56 Depression Screening Interpretation: Negative Thrive Assessment: Date of Thrive Assessment Date Thrive assessed 10/21/23 10/21/23 16:50 Currently or been in a relationship where the following occur: no concerns reported Const General: No confusion Orientation/consciousness: patient oriented x3 and No confusion HENMT Head: Yes normal to inspection, Yes normocephalic and Yes atraumatic Ears: external ears normal Eyes General: appearance normal, both eyes and all related structures Eyelids: Yes eyelids normal Conjunctivae: conjunctivae normal Neck Neck: Yes normal visual inspection and Yes supple Resp Effort & Inspection: normal respiratory effort Auscultation: clear to auscultation bilaterally Cardio Jugular venous distension: no JVD Rate: regular rate Rhythm: regular rhythm Heart sounds: S1 normal heart sound present and S2 normal heart sound present GI Inspection: Yes normal to inspection Palpation (GI): Soft to palpation and nontender Auscultation: normal bowel sounds Skin General skin exam: no rashes or lesions noted Neuro General: patient oriented x3, no focal motor deficits and No confusion Extrem General: Yes full ROM Psych Appearance: grossly normal Assessment and Plan Assessment & Plan (1) Physical exam: Code(s): Z00.00 - Encounter for general adult medical examination without abnormal findings Plan: Repeat in a year. Orders: Referrals Dermatology Referral L98.9 - Disorder of the skin and subcutaneous tissue, unspecified Ophthalmology Referral H53.8 - Other visual disturbances Coding Level of Care Code Est Pt Prev Care 18-39y(16415) Diagnoses Physical exam Z00.00 Additional Codes ADRIEL-7 Assessment Billing - ADRIEL-7 Assessment Tool: ADRIEL-7 Assessment 68616 ([id number]) Time Spent (min) 30
[2023-10-21 16:47] VITALS: BP 130/82; BMI 31.1
== END 2023-10-21 17:10 | disposition home or self-care (01) ==
PROVIDERS: Visit Provider Internal Medicine
DX: Z00.00 Encounter for general adult medical examination without abnormal findings (principal)
CPT/HCPCS: 99395

== ENCOUNTER 2023-11-25 16:55 | Emergency (ER) | payer OTHER, SELFPAY ==
[2023-11-25 17:18] VITALS: BP 180/86; PULSE 69; RESP 18; TEMP 37.2; O2SAT 98; BMI 32.3
--- NOTE | 2023-11-25 17:18 | ED.GENADULT ---
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 Today developed itching after urination, urinary urgency. Denies back or flank pain. Denies fevers. Denies any vaginal discharge. BP elevated in triage, states she was running around prior to arrival, denies headache, chest pain, shortness of breath or history of htn. Denies any abdominal pain, nausea, vomiting. MD complaint: Urinary frequency, foul-smelling urine Onset (ago): day(s) Treatments prior to arrival: none Related Data Previous Rx's ?Medication ?Instructions ?Recorded cefuroxime axetil 500 mg tablet 500 mg PO BID #14 tabs 11/25/23 Allergies Allergy/AdvReac Type Severity Reaction Status Date / Time No Known Allergies Allergy Verified 11/25/23 17:22 Review of Systems Review of Systems: As per HPI. Yes all other systems are reviewed and are negative Constitutional: Constitutional: Reports as per HPI PMFSH Past Medical History Medical History Abdominal pain Irregular menses Blurry vision Anemia Hyperlipemia Surgical History History of tubal ligation Family History Family History Father Diabetes Hypertension Myocardial infarction Mother Hypertension Son In good health Brother In good health Sister In good health Paternal Aunt Stroke Social History Social History Housing: Apartment Alcohol intake: never Patient Tobacco Use Status: Never used Tobacco e-Cigarette/Vaping Use: Never Used Second Hand Smoke Exposure: No Advance Directives: No Advance Directives Information Provided: No Do you have a plan to hurt others: No Plan service: No Current occupational status: employed Current occupational exposures/hazards: No Gender identity: Female Cognitive needs: No Hearing needs: No Vision needs: No Physical Exam ED Vital Signs: Vital Signs - 24 hr 11/25/23 17:18 Temperature 98.9 F Pulse Rate 69 Respiratory Rate 18 Blood Pressure 180/86 H Pulse Oximetry 98 Oxygen Delivery Method Room Air BMI result Body Mass Index 32.3 Vital signs have been reviewed and appear to be correct. Blood pressure elevated. Heart rate normal. Respiratory rate normal. Temperature normal. Oxygen saturation normal. Const General: cooperative, healthy appearing and no acute distress Orientation/consciousness: oriented to person, oriented to place, oriented to time and patient oriented x3 Limitations: no limitations HENMT Head: Yes normocephalic and Yes atraumatic Ears: external ears normal General nose exam: Normal external nose present Face and sinus: Yes face symmetric Mouth: oropharynx normal and moist mucous membranes Throat: Yes uvula midline Eyes Pupils: Equal, round and reactive pupils present Neck Neck: Yes normal visual inspection and Yes supple Resp Effort & Inspection: normal respiratory effort and able to speak in complete sentences Auscultation: clear to auscultation bilaterally Cardio Rate: regular rate Rhythm: regular rhythm Heart sounds: S1 normal heart sound present and S2 normal heart sound present GI Palpation (GI): Soft to palpation and nontender Auscultation: normoactive bowel sounds General: Yes no CVA tenderness Back/Spine/Pelvis Back: no CVA tenderness Skin General skin exam: elasticity normal and turgor normal Neuro General: oriented to person, oriented to place, oriented to time, patient oriented x3, moves all extremities, no focal motor deficits and CN's II-XI intact bilaterally Cranial nerves: Yes Equal, round and reactive pupils present Cognition (Neuro): normal cognition Extrem General: Yes full ROM, Yes no pedal edema and Yes no calf tenderness Psych Mental Status: mental status grossly normal Affect: normal affect Thought process: Normal thought process present Medical Decision Making Medical Decision Making MDM Narrative: Patient is a 33-year-old female presenting to the ED with complaint of foul smelling urine since Friday. On exam patient is awake, A+Ox3, BP elevated, VS otherwise WNL, afebrile, normal neurological exam without focal deficits, physical exam findings as above. Given reported symptoms and physical exam findings, initial differential includes UTI, pyelonephritis. Urinalysis notable for 3+ leukocytes, 21-50WBCs, 1+ bacteria. Negative . Results and plan discussed with patient via reducing salon attendant. Will treat with cefuroxime. Advised to follow up with PCP. Return precautions discussed. Patient verbalized understanding of and agreement with plan. Differential Diagnosis Differential Diagnoses: The differential diagnosis associated with the presentation includes As per [facility] Lab Data [facility] Lab Attestation statement: I reviewed the patient's lab results. As per [facility] Labs: Lab Results 11/25/23 Range/Units 17:33 Urine Color Yellow Urine Appearance Clear Urine pH 7.5 (5.0-9.0) Ur Specific [place] 1.025 (1.005-1.025) Urine Protein Trace (Neg-Trace) mg/dL Urine Glucose (UA) Negative (Negative) mg/dL Urine Ketones Negative (Negative) mg/dL Urine Blood Negative (Negative) Urine Nitrite Negative (Negative) Ur Leukocyte Esterase Large (3+) H (Negative) Urine RBC 0-2 (0-2) /HPF Urine WBC 21-50 H (0-5) /HPF Ur Squamous Epith Cells 3-5 (0-2) /HPF Urine Bacteria 1+ (None Seen) Hyaline Casts 0-2 (0-2) /LPF Urine Test NEGATIVE (NEGATIVE) External Record Review External record reviewed: Inpatient record, Office record and Outpatient record Prescription Management I considered prescription management with: Antibiotic Discharge Plan Discharge Clinical Impression: Urinary tract infection Patient Disposition: Home, Self-Care Instructions: Cefuroxime (By mouth), Urinary Tract Infection in Women (DC) Additional Instructions: You have been evaluated in the emergency department today for your urinary symptoms. Your evaluation, including urinalysis, suggests that your symptoms are due to urinary tract infection. Please take your prescribed antibiotics for the full course of medication as directed. Please follow-up with your primary care provider within 2 days. Return to the emergency department if you experience fevers 100.4? F or greater, worsening or uncontrolled pain, vomiting, flank pain, or for any other concerning symptoms. Prescriptions: New cefuroxime axetil 500 mg tablet 500 mg PO BID Qty: 14 0RF Print Language: Stateless
[2023-11-25 17:47] LABS: UPreg QC Valid YES; Urine Pregnancy NEGATIVE (NEGATIVE)
[2023-11-25 17:52] LABS: Appearance Urine Clear; Color Urine Yellow; Glucose Urine UA Negative (Negative); Leukocyte Esterase Urine Large (3+) (Negative); Nitrite Urine Negative (Negative); PH 7.5 (5.0-9.0); Specific Gravity - Urine 1.025 (1.005-1.025); UMIC TRIGGER UACC YES; Urine Blood Negative (Negative); Urine Ketones Negative (Negative); Urine Protein Trace mg/dL (Neg-Trace)
[2023-11-25 18:04] LABS: Bacteria Urine 1+ (None Seen); Hyaline Casts Urine 0-2 /LPF (0-2); RBC Urine 0-2 /HPF (0-2); UACC Culture Trigger YES; WBC Urine 21-50 /HPF (0-5)
[2023-11-25 18:35] VITALS: BP 180/86; PULSE 69; RESP 18; TEMP 37.2; O2SAT 98
== END 2023-11-25 18:36 | disposition home or self-care (01) ==
PROVIDERS: Registered Nurse Emergency; Emergency Provider Emergency Medicine; PCP Internal Medicine
DX: N39.0 Urinary tract infection, site not specified (principal); R39.15 Urgency of urination; Z79.899 Other long term (current) drug therapy
CPT/HCPCS: 81001; 81025; 87086; 87088; 87186; 99282; 99283

== ENCOUNTER 2024-02-08 07:49 | Emergency (ER) | payer OTHER, SELFPAY ==
[2024-02-08 07:51] VITALS: BP 157/82; PULSE 80; RESP 16; TEMP 36.6; O2SAT 100; BMI 31.2
[2024-02-08 08:08] LABS: Appearance Urine Cloudy; Color Urine Yellow; Glucose Urine UA Negative (Negative); Leukocyte Esterase Urine Trace (Negative); Nitrite Urine Negative (Negative); PH 5.5 (5.0-9.0); Specific Gravity - Urine >= 1.030 (1.005-1.025); UMIC TRIGGER UACC YES; Urine Blood Negative (Negative); Urine Ketones Trace mg/dL (Negative); Urine Protein Negative (Neg-Trace)
[2024-02-08 08:09] LABS: UPreg QC Valid YES; Urine Pregnancy NEGATIVE (NEGATIVE)
[2024-02-08 08:25] LABS: Bacteria Urine None Seen (None Seen); Hyaline Casts Urine 0-2 /LPF (0-2); RBC Urine 0-2 /HPF (0-2); WBC Urine 0-5 /HPF (0-5)
--- NOTE | 2024-02-08 09:07 | ED.FEMALEGU ---
HPI - Female Genitourinary General Chief complaint: Urogenital-Female Stated complaint: UTI Time Seen by Provider: 02/08/24 09:01 Source: patient, RN notes reviewed and old records reviewed Mode of arrival: ambulatory History of Present Illness ED Provider: Amada Morataya PA-C HPI Narrative: 33-year-old female with past medical history of anemia, HLD, menorrhagia, presenting to the ED complaining of odorous urine, and urinary frequency x3 days. Denies abdominal pain, back pain, flank pain, dysuria/hematuria, vaginal bleeding/discharge. Related Data Previous Rx's ?Medication ?Instructions ?Recorded cefuroxime axetil 500 mg tablet 500 mg PO BID #14 tabs 11/25/23 Allergies Allergy/AdvReac Type Severity Reaction Status Date / Time No Known Allergies Allergy Verified 02/08/24 07:52 Review of Systems Review of Systems: Yes all other systems are reviewed and are negative Constitutional: Constitutional: Reports as per [facility] Past Medical History Attestation statement: The following information was validated with the patient. Source: old records reviewed Medical History Abdominal pain Irregular menses Blurry vision Anemia Hyperlipemia Surgical History History of tubal ligation Family History Family History Father Diabetes Hypertension Myocardial infarction Mother Hypertension Son In good health Brother In good health Sister In good health Paternal Aunt Stroke Social History Social History Housing: Apartment Alcohol intake: never Patient Tobacco Use Status: Never used Tobacco e-Cigarette/Vaping Use: Never Used Second Hand Smoke Exposure: No Advance Directives: No Advance Directives Information Provided: Yes service: No Current occupational status: employed Current occupational exposures/hazards: No Gender identity: Female Cognitive needs: No Hearing needs: No Vision needs: No Physical Exam Vital Signs: Vital Signs: Last Vital Signs Temp 98 F 02/08/24 07:51 Pulse 80 02/08/24 07:51 Resp 16 02/08/24 07:51 BP 157/82 H 02/08/24 07:51 Pulse Ox 100 02/08/24 07:51 O2 Del Method Room Air 02/08/24 07:51 BMI result Body Mass Index 31.2 Const: General: cooperative, healthy appearing and no acute distress Orientation/consciousness: patient oriented x3 Limitations: no limitations HEENT: Head: Yes normal to inspection and Yes atraumatic Ears: hearing grossly normal bilaterally General nose exam: Normal external nose present Face and sinus: Yes normal facial exam Eyes: General: appearance normal, both eyes and all related structures EOM: EOMs intact bilaterally Neck: Neck: Yes normal visual inspection and Yes no meningeal signs Resp: Effort & Inspection: normal respiratory effort and no respiratory distress Auscultation: clear to auscultation bilaterally Cardio: Rate: regular rate Heart sounds: S1 normal heart sound present and S2 normal heart sound present GI: Inspection: Yes normal to inspection Palpation (GI): Soft to palpation, nontender, no guarding and not rigid : General: Yes no CVA tenderness Back/Spine/Pelvis: Back: no CVA tenderness Skin: Rashes: no rashes Wounds: no wounds Neuro: General: patient oriented x3, tone normal and no meningeal signs Cranial nerves: Yes CN's II-XII intact bilaterally Gait exam (Neuro): Normal gait present Extrem: General: Yes normal to inspection Course Course Course Narrative: -UA not infected. negative Results discussed with patient including worrisome signs and symptoms and strict return precautions, and when to return to the emergency department. They verbalized understanding and feel safe for discharge at this time. Medical Decision Making Medical Decision Making [facility] Narrative: 33-year-old female with past medical history of anemia, HLD, menorrhagia, presenting to the ED complaining of odorous urine, and urinary frequency x3 days. On exam VSS, NAD, nontoxic appearing, abdomen soft/nontender, no CVAT. Concern for UTI vs cystitis. Lower suspicion for STI, ovarian torsion, pyelo or TOA Plan: UA, Please refer to course for remaining clinical decision making, interpretation of labs/imaging results, and discussions with consultants and/or family members. Differential Diagnosis Differential Diagnoses: The differential diagnosis associated with the presentation includes As above Admission/Observation Consideration of admission/observation: Escalation of care including admission/observation considered Lab Data [facility] Lab Attestation statement: I reviewed the patient's lab results. Labs: Lab Results 02/08/24 Range/Units 07:55 Urine Color Yellow Urine Appearance Cloudy Urine pH 5.5 (5.0-9.0) Ur Specific [place] >= 1.030 H (1.005-1.025) Urine Protein Negative (Neg-Trace) mg/dL Urine Glucose (UA) Negative (Negative) mg/dL Urine Ketones Trace (Negative) mg/dL Urine Blood Negative (Negative) Urine Nitrite Negative (Negative) Ur Leukocyte Esterase Trace H (Negative) Urine RBC 0-2 (0-2) /HPF Urine WBC 0-5 (0-5) /HPF Ur Squamous Epith Cells 6-10 (0-2) /HPF Urine Bacteria None Seen (None Seen) Hyaline Casts 0-2 (0-2) /LPF Urine Test NEGATIVE (NEGATIVE) Radiology Impression Discussion of test interpretation with radiology: I have reviewed the radiologist's reading. External Record Review External record reviewed: Inpatient record, Office record, Outpatient record, Prior outpatient labs, Prior outpatient radiology, Primary care record and Outside ED record Tests considered The following testing was considered but not selected: As above Prescription Management I considered prescription management with: Pain Medication and Antibiotic Discharge Plan Discharge Clinical Impression: Cystitis Patient Disposition: Home, Self-Care Additional Instructions: Your urine is not infected. Her is negative Pyridium will help with urinary discomfort, this will turn your urine orange this is normal Make sure you are drinking plenty of fluids If you develop fever, abdominal pain, or back pain return to the emergency department Follow-up with her doctor Prescriptions: No Action cefuroxime axetil 500 mg tablet 500 mg PO BID Qty: 14 0RF Referrals: Jaylene Kidd MD [Primary Care Provider] - 1 week Print Language: Maltese
[2024-02-08 10:04] VITALS: BP 157/82; PULSE 80; RESP 16; TEMP 36.6; O2SAT 100
== END 2024-02-08 10:05 | disposition home or self-care (01) ==
PROVIDERS: Emergency Provider Emergency Medicine Emergency Medical Services; PCP Internal Medicine
DX: N30.90 Cystitis, unspecified without hematuria (principal); R35.0 Frequency of micturition; Z79.899 Other long term (current) drug therapy
CPT/HCPCS: 81001; 81003; 81025; 99282

== ENCOUNTER 2024-04-06 17:40 | Emergency (ER) | payer OTHER, SELFPAY ==
--- NOTE | ~2024-04-06 | CT_ITS ---
EXAMINATION: CT HIP WITHOUT CONTRAST, LEFT CLINICAL INFORMATION: Pain and swelling. COMPARISON: None available. TECHNIQUE: Multidetector volumetric imaging was obtained through the left hip without contrast material. Multiplanar reformatted images were submitted in coronal and sagittal planes. This CT examination was performed using dose optimization techniques as appropriate, variously including the following: *Automated exposure control *Adjustment of mA and/or kV according to patient size (this includes techniques or standardized protocols for targeted exams where dose is matched to indication/reason for exam; i.e. extremities or head) *Use of iterative reconstruction technique DLP: 189 mGy-cm FINDINGS: There is mild loss of right hip joint space. The right hip joint space is otherwise maintained. The bone mineralization is normal. There is no fracture. There is no evidence for significant joint effusion. The soft tissues are unremarkable. The visualized intrapelvic structures are unremarkable. CT/CT hip LT wo IV con IMPRESSION: 1. No acute osseous abnormality of the left hip. 2. Mild loss of right hip joint space. Electronically signed by: Bora Jackson MD 04/07/2024 02:35 AM [facility]
--- NOTE | ~2024-04-06 | XR_ITS ---
EXAMINATION: XR HIP, LEFT CLINICAL INFORMATION: Severe pain. COMPARISON: CT abdomen/pelvis 04/29/2021. TECHNIQUE: Two views of the left hip. 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 No acute appearing fractures or dislocation. Subjective increased soft tissue fullness adjacent to the left hip with a possible joint effusion. XR/XR hip LT w PEL1V IMPRESSION: Subjective increased soft tissue fullness adjacent to the left hip with a possible joint effusion. Consider further evaluation with a CT of the left hip as clinically warranted. Electronically signed by: Odette Avalos MD 04/06/2024 07:15 PM EST
--- NOTE | 2024-04-06 17:59 | ED.GENADULT ---
HPI - General Adult General Chief complaint: Extremity Injury, Lower Stated complaint: pain on left hip Time Seen by Provider: 04/07/24 00:02 Source: patient Limitations: no limitations History of Present Illness ED Provider: Sada Draper PA-C HPI narrative: 33-year-old otherwise healthy female presents with left hip pain x5 days. Patient states she was lifting a heavy object at work when she developed the discomfort. Over the past several days it has gotten worse, it hurts to ambulate, she is now limping. Denies associated swelling or redness at the site. Patient has been using ibuprofen without relief from her symptoms. Related Data Previous Rx's ?Medication ?Instructions ?Recorded cefuroxime axetil 500 mg tablet 500 mg PO BID #14 tabs 11/25/23 phenazopyridine 200 mg tablet 200 mg PO TID PRN pain 6 doses #6 02/08/24 (Pyridium) tabs meloxicam 15 mg tablet 15 mg PO DAILY #7 tabs 04/07/24 methocarbamol 750 mg tablet 750 mg PO QID #20 tabs 04/07/24 Allergies Allergy/AdvReac Type Severity Reaction Status Date / Time No Known Allergies Allergy Verified 04/06/24 18:01 Review of Systems Review of Systems: Yes all other systems are reviewed and are negative Constitutional: Constitutional: Denies fatigue and Denies fever(s) Musculoskeletal: Musculoskeletal: Reports arthralgias, Denies joint swelling and Denies muscle cramps Endocrine: Endocrine: Denies fatigue PMFSH Past Medical History Attestation statement: The following information was validated with the patient. Medical History Abdominal pain Irregular menses Blurry vision Anemia Hyperlipemia Surgical History History of tubal ligation Family History Family History Father Diabetes Hypertension Myocardial infarction Mother Hypertension Son In good health Brother In good health Sister In good health Paternal Aunt Stroke Social History Social History Housing: Apartment Alcohol intake: never Patient Tobacco Use Status: Never used Tobacco Smoked in Last 30 Days: No e-Cigarette/Vaping Use: Never Used Second Hand Smoke Exposure: No Use of substances other than those prescribed or required for medical reasons: No Advance Directives: No Advance Directives Information Provided: No Patient : No service: No Current occupational status: employed Current occupational exposures/hazards: No Gender identity: Female Cognitive needs: No Hearing needs: No Vision needs: No Physical Exam ED Vital Signs: Vital Signs - 24 hr 04/06/24 18:00 04/06/24 22:32 04/06/24 23:58 Temperature 98.3 F 98.4 F 98.1 F Pulse Rate 83 69 75 Respiratory Rate 18 16 16 Blood Pressure 135/79 129/79 132/70 Pulse Oximetry 100 100 99 Oxygen Delivery Method Room Air Room Air Room Air 04/07/24 02:37 04/07/24 04:05 Temperature 98.4 F 98.3 F Pulse Rate 62 70 Respiratory Rate 16 16 Blood Pressure 109/60 101/61 Pulse Oximetry 97 97 Oxygen Delivery Method Room Air Room Air BMI result Body Mass Index 31.0 Const Other: Alert, well-appearing Orientation/consciousness: patient oriented x3 Resp Other: Nonlabored respiration Cardio Other: Normal peripheral perfusion Skin Other: Warm dry no rash Neuro General: patient oriented x3, no focal motor deficits and CN's II-XI intact bilaterally Extrem Other: No focal swelling noted over the left extremity/hip ambulates with a antalgic gait Psych Other: Cooperative Course Course Course Narrative: This is a rapid medical exam performed by Jd Mayberry NP: Additional HPI, ROS, PE not included below will be deferred to primary provider. Patient is a 33-year-old female presenting with complaint of left hip pain since Friday. Friday felt slightly better with OTC medications. Stayed home from work yesterday due to pain. Began after lifting supplies at work. Unable to fully assess in triage as patient states cannot get out of wheelchair. Plan: xray, upreg Reevaluation(s) Reevaluation #1: We will need to signed out to night team pending imaging and likely discharge home Medications Administered Discontinued Medications Generic Name Dose Route Start Last Admin Trade Name Freq PRN Reason Stop Dose Admin Ketorolac Tromethamine 15 mg 04/07/24 01:33 04/07/24 02:02 Ketorolac Tromethamine 15 Mg/Ml Vial IM 04/07/24 01:34 15 mg ONCE ONE Administration Methocarbamol 750 mg 04/07/24 01:33 04/07/24 02:02 Methocarbamol 750 Mg Tablet PO 04/07/24 01:34 750 mg ONCE ONE Administration Medical Decision Making Medical Decision Making [facility] Narrative: 33-year-old otherwise healthy female presents with left hip pain x5 days. Patient states she was lifting a heavy object at work when she developed the discomfort. Over the past several days it has gotten worse, it hurts to ambulate, she is now limping. Denies associated swelling or redness at the site. Patient has been using ibuprofen without relief from her symptoms. No relevant chronic issues History: Per patient I have considered the following differential diagnoses: Fracture, dislocation, sprain, septic joint Plan: Patient likely has a hip sprain. Per x-ray, she may have an effusion. The recommendation is to obtain a CT scan, this will also rule out potential occult fracture. We will give Toradol and methocarbamol. Labs: Not xray hip: XR/XR hip LT w PEL1V IMPRESSION: Subjective increased soft tissue fullness adjacent to the left hip with a possible joint effusion. Consider further evaluation with a CT of the left hip as clinically warranted. Electronically signed by: Odette Avalos MD 04/06/2024 07:15 PM [facility] CT left hip: There is mild loss of right hip joint space. The right hip joint space is otherwise maintained. The bone mineralization is normal. There is no fracture. There is no evidence for significant joint effusion. The soft tissues are unremarkable. The visualized intrapelvic structures are unremarkable. CT/CT hip LT wo IV con IMPRESSION: 1. No acute osseous abnormality of the left hip. 2. Mild loss of right hip joint space. Lab Data Labs: Lab Results 04/06/24 Range/Units 23:51 Urine Test NEGATIVE (NEGATIVE) Discharge Plan Discharge Clinical Impression: Hip strain Patient Disposition: Home, Self-Care Instructions: Groin Strain (ED) Additional Instructions: You did not fracture of the hip, you have musculoskeletal strain that involves the groin. See home care instructions. Use the meloxicam as directed, this is an anti-inflammatory. Use the methocarbamol, this is a muscle relaxant, as needed for further pain. To note you can not drive or operate machinery while taking this medication as it will cause drowsiness. Follow up with your primary care provider as needed. Bear weight as tolerated. Prescriptions: New meloxicam 15 mg tablet 15 mg PO DAILY Qty: 7 0RF methocarbamol 750 mg tablet 750 mg PO QID Qty: 20 0RF No Action cefuroxime axetil 500 mg tablet 500 mg PO BID Qty: 14 0RF phenazopyridine [Pyridium] 200 mg tablet 200 mg PO TID PRN (Reason: pain) Qty: 6 0RF Stand Alone Forms: Work/School Release Print Language: Wolof
[2024-04-06 18:00] VITALS: BP 135/79; PULSE 83; RESP 18; TEMP 36.8; O2SAT 100; BMI 31.0
[2024-04-06 22:32] VITALS: BP 129/79; PULSE 69; RESP 16; TEMP 36.9; O2SAT 100
[2024-04-06 23:57] LABS: UPreg QC Valid YES; Urine Pregnancy NEGATIVE (NEGATIVE)
[2024-04-06 23:58] VITALS: BP 132/70; PULSE 75; RESP 16; TEMP 36.7; O2SAT 99
--- NOTE | 2024-04-06 23:59 | MHC.EDTECH ---
This pct assumed care of Patient at 2300 ,vitals taken ,urine sample collected and sent to lab .
[2024-04-07] MEDS: Ketorolac Tromethamine 15 MG/ML VIAL IM (02:02)
[2024-04-07] MEDS: methocarbamoL 750 MG TABLET PO (02:02)
[2024-04-07 02:37] VITALS: BP 109/60; PULSE 62; RESP 16; TEMP 36.9; O2SAT 97
[2024-04-07 04:05] VITALS: BP 101/61; PULSE 70; RESP 16; TEMP 36.8; O2SAT 97
[2024-04-07 06:18] VITALS: BP 113/64; PULSE 93; RESP 16; TEMP 36.8; O2SAT 98
[2024-04-07 06:26] VITALS: BP 113/64; PULSE 93; RESP 16; TEMP 36.8; O2SAT 98
== END 2024-04-07 06:26 | disposition home or self-care (01) ==
PROVIDERS: Registered Nurse Emergency; Emergency Provider Emergency Medicine; PCP Internal Medicine
DX: M25.552 Pain in left hip (principal); Z79.899 Other long term (current) drug therapy
CPT/HCPCS: 73502; 73700; 81025; 96372; 99284; J1885

== ENCOUNTER 2024-05-14 13:18 | Outpatient (AMB) | payer OTHER, SELFPAY ==
[2024-05-14 13:27] VITALS: BP 118/68; BMI 31.2
--- NOTE | 2024-05-14 13:27 | A.OFFVIS_ITS ---
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 She is and has 0/no concerns about STIs or discharge or anything. She has a history of a tubal ligation at age 19 after the her 2nd child she has 2 children. Her oldest is 18 in her youngest is 14. She regrets having had her tubes tied and she was 19 years old she would like to have 1 more baby with her . She denies any other health concerns. [facility] Medical History Abdominal pain Irregular menses Blurry vision Anemia Hyperlipemia Surgical History History of tubal ligation Family History Father Diabetes Hypertension Myocardial infarction Mother Hypertension Son In good health Brother In good health Sister In good health Paternal Aunt Stroke Social History Housing: Apartment Alcohol intake: never Patient Tobacco Use Status: Never used Tobacco e-Cigarette/Vaping Use: Never Used Second Hand Smoke Exposure: No service: No Current occupational status: employed Current occupational exposures/hazards: No Gender identity: Female Cognitive needs: No Hearing needs: No Vision needs: No Female Reproductive History Menstrual Age of Menarche: 14 Duration of menses: 3-5 days Date of last menstrual period: 04/25/24 control method: permanent sterilization Total pregnancies: 2 Full term: 2 Date of last pap smear: 12/10/22 (negative, 2019 neg) Physical Exam Vital Signs: Last Vital Signs BP 118/68 05/14/24 13:27 BMI result Body Mass Index 31.2 Const General: healthy appearing, comfortable, no acute distress, well developed and alert Nutritional Appearance: average body habitus Orientation/consciousness: patient oriented x3 Limitations: no limitations HEENT Head: Yes normocephalic Neck Neck: Yes normal visual inspection Chest Chest palpation & inspection: normal inspection of the chest Breast/axilla inspection: normal inspection of the breasts and normal inspection of the axillae Breast/axilla palpation: normal palpation of the breasts and normal palpation of the axillae Resp Effort & Inspection: normal respiratory effort GI Inspection: Yes normal to inspection, No Abdominal wall edema and No distended Palpation (GI): Soft to palpation and nontender Other: External exam within normal limits vagina is pink and moist. Cervix multiparous pink with nabothian cysts long close thick firm closed. Uterus small midposition mobile nontender adnexa nontender fair tone with Kegel. Mucus is clear site yellowish color consistent with possible recent or pending ovulation. General: Yes bladder normal to palpation External Female Exam: normal external appearance and normal appearance of the urethra Speculum Exam - Vagina: normal appearance of the vagina, normal palpation and normal vaginal discharge Speculum Exam - Cervix: normal appearance of the cervix, normal palpation and nontender Bimanual exam- vagina & uterus: normal bimanual exam, normal palpation, uterine size normal, bladder normal to palpation, consistency normal, normal palpation, uterine mobility normal, uterine shape normal, No Cervical tenderness present, non-tender and no cervical motion tenderness Bimanual Exam- Adnexa, other: normal adnexae, no masses, normal and No adnexal tenderness Neuro General: patient oriented x3 Results Reviewed Results Reviewed: Name: Dianelys Harris Age/Sex: 32/F Attending: Marcela Yoo CNM : 1990 Submitted by: Marcela Yoo CNM Copies to: Jaylene Kidd MD MR #: [id number] Status: DEP REF Collected: 12/09/22 Location: [facility] Received: 12/10/22 Interpretation Satisfactory for evaluation. Mucus noted. Negative for intraepithelial lesion or malignancy. HPV mRNA E6/E7: NOT DETECTED This assay detects E6/E7 viral messenger RNA (mRNA) from 14 high-risk HPV types (16, 18, 31, 33, 35, 39, 45, 51, 52, 56, 58, 59, 66, 68) HPV testing performed by [facility], [place], [place]. See reference laboratory pion of the EMR for entire report. Clinical Information LMP: 11/28/22 Previous PAP test: 05/14/19, WNL Material Received ThinPrep-Cervical Copies To Marcela Yoo CNM [address] [place] [address] [address]. [address] [place] [address] Jaylene Kidd MD [address] [place] [address] Dr. [address] [place] [address] Electronically Signed By: ANNA Bonds (ASCP) 12/18/22 1343 The Pap Test is a screening procedure with the inherent possibility of both false negative and false positive results. Results should be interpreted in the context of historic and current clinical findings. Reliability of the Pap Test is enhanced by performing the test on a regular repetitive basis. Patient: Dianelys Harris Age/Sex: Name: Dianelys Harris Age/Sex: 30/F Attending: Marcela Yoo CNM : 1990 Submitted by: Marcela Yoo CNM Copies to: Jaylene Kidd MD MR #: [id number] Status: DEP REF Collected: 10/31/20 Location: .LAB Received: 10/31/20 Diagnosis Endometrium, biopsy: Proliferative endometrium with patchy breakdown; no atypia or hyperplasia seen. Clinical History Menorrhagia Microscopic Description Microscopic sections reviewed. Material Received Endometrial biopsy Gross Description Received in formalin labeled EMB is a 1.8 x 1.5 x 0.35 cm. aggregate of mucus and blood with multiple soft, congested and hemorrhagic, red-maroon, irregular tissue fragments. The specimen is submitted in toto in a single cassette labeled A. CEDS Copies To Marcela Yoo CNM [address] [place] [address] Dr. [address] [place] [address] Jaylene Kidd MD [address] [place] [address] Dr. [address] [place] [address] NOTE: Some or all of the immunohistochemical tests reported herein may have been developed and their performance characteristics determined by [facility]. They have not been cleared or approved by the U.S. Food and Drug Administration (FDA). However, the FDA has determined that such clearance or approval is not necessary. This laboratory is certified under the Clinical Laboratory Improvement Amendments of 1988 (CLIA) as qualified to perform high complexity clinical laboratory testing. Electronically Signed By: Ildefonso Little MD 11/01/20 6949 Patient: Dianelys Harris Age/Sex: 30/F MR#: [id number] Page 1 of 1. Assessment & Plan Assessment & Plan (1) History of tubal ligation: Comment: 10/04/2009 AFTER OF SECOND CHILD, at age 19. Patient has regrets and would like 1 more baby and is pondering reversal. Code(s): Z98.51 - Tubal ligation status Category: Surgical (2) Well woman exam with routine gynecological exam: Code(s): Z01.419 - Encounter for gynecological examination (general) (routine) without abnormal findings Category: Medical (3) Cervical cancer screening: Comment: History of negative Pap 2019. pap done 03/28/22= unsatisfactory Pap being repeated 12/09/2022= negative with negative HPV. Code(s): Z12.4 - Encounter for screening for malignant neoplasm of cervix Category: Medical Plan -----Discussed in this visit the following: healthy balanced diet, regular and consistent exercise, getting recommended health screens, doing the best she can for her particular health concerns, kegel exercises, pap smear screening and followup recommendations, mammography screening and SBE, normal changes in cycles in her life stage--- . Discussed that it can be a complex issue to reverse the tubal ligation and can be very costly. I do not know where she could have that done, she would probably need to have records of her tubal ligation and would need to check w other institutions to see if this service was available. reviewed that sometimes people gone of [facility] for this procedure. Also discussed that we do not have a birthing center [facility] and deliveries [facility] or [facility] depending on where she would choose to go discussed that if she were thinking about reversing her tubal ligation the she should consider what her options are and make sure the hospital and surgeon have a solid reputation and are board-certified, and that acting before her eggs it older would be advisable. She is pondering all this. She declined any testing for STIs reviewed signs and symptoms of ovulation so that she is aware of that when she does get her desired tubal. Coding Level of Care Code Est Pt Prev Care 18-39y(79420) Diagnoses History of tubal ligation Z98.51 Well woman exam with routine gynecological exam Z01.419 Cervical cancer screening Z12.4
== END 2024-05-14 13:52 | disposition home or self-care (01) ==
PROVIDERS: PCP Internal Medicine; Visit Provider Advanced Practice Midwife
DX: Z01.419 Encounter for gynecological examination (general) (routine) without abnormal findings (principal); Z98.51 Tubal ligation status
CPT/HCPCS: 99395; 99459

== ENCOUNTER → 2024-05-14 13:18 | Outpatient (BNVA) | payer OTHER, SELFPAY | PROVIDERS: PCP Internal Medicine; Visit Provider Advanced Practice Midwife ==

== ENCOUNTER 2024-08-19 08:07 | Emergency (ER) | payer OTHER, SELFPAY ==
--- NOTE | ~2024-08-19 | US_ITS ---
EXAMINATION: US KIDNEY LEFT HISTORY: L flank pain COMPARISON: Correlation is made with a CT of the abdomen with contrast dated 04/29/2021. FINDINGS: Sonographic examination of the left kidney was performed. The left kidney measures 9.8 x 5.4 x 4.8 cm in size and demonstrates normal proximal echotexture and thickness. There is no evidence of nephrolithiasis, hydronephrosis, or masses. US/US renal LT IMPRESSION: Unremarkable sonographic appearance of the left kidney. Electronically signed by: Ryan Valdez MD 08/19/2024 10:00 AM EDT
[2024-08-19 08:17] VITALS: BP 147/63; PULSE 74; RESP 16; TEMP 36.6; O2SAT 99; BMI 31.7
[2024-08-19 08:36] LABS: MANUAL DIFF FLAG NO
[2024-08-19 08:38] LABS: UPreg QC Valid YES; Urine Pregnancy NEGATIVE (NEGATIVE)
[2024-08-19 08:39] LABS: Appearance Urine Cloudy; Color Urine Yellow; Glucose Urine UA Negative (Negative); Leukocyte Esterase Urine Large (3+) (Negative); Nitrite Urine Negative (Negative); PH 5.5 (5.0-9.0); UMIC TRIGGER UACC YES; Urine Blood Negative (Negative); Urine Ketones Negative (Negative); Urine Protein Negative (Neg-Trace)
[2024-08-19 08:41] LABS: Bacteria Urine 2+ (None Seen); Hyaline Casts Urine 0-2 /LPF (0-2); RBC Urine 0-2 /HPF (0-2); UACC Culture Trigger YES; WBC Urine >50 /HPF (0-5)
[2024-08-19 08:43] LABS: Basophils Percent Auto 0.2 % (0-2); Eosinophils Absolute Auto 0.1 X10*3/uL (0.0-0.4); Eosinophils Percent Auto 0.6 % (0-4); Hematocrit 35.7 % (37.0-47.0); Hemoglobin 12.1 g/dl (12.0-16.0); Imm Gran Abs Auto 0.02 X10*3/uL (0.00-0.03); Imm Gran Pct Auto 0.2 % (0.0-0.4); Lymphocytes Absolute Auto 3.2 X10*3/uL (1.2-4.9); Lymphocytes Percent Auto 38.8 % (20-40); Mean Corpuscular HGB Conc 33.9 g/dl (31.0-35.0); Mean Corpuscular Hemoglobin 27.2 pg (27.0-33.0); Mean Corpuscular Volume 80.2 fL (80.0-98.0); Mean Platelet Volume 10.7 fL (9.4-12.3); Monocytes Absolute Auto 0.5 X10*3/uL (0.1-1.2); Neutrophils Absolute Auto 4.4 x10*3/uL (2.0-8.3); Neutrophils Percent Auto 54.2 % (45-73); Platelet Count 247 X10*3/uL (160-400); Red Blood Count 4.45 X10*6/uL (4.20-5.50); Red Cell Distribution Width 14.1 % (11.0-16.0); White Blood Count 8.1 X10*3/uL (4.8-10.8)
--- NOTE | 2024-08-19 08:43 | ED_ITS ---
HPI - Back Pain/Injury General Chief Complaint: Abdominal Pain Stated Complaint: abd pain Time Seen by Provider: 08/19/24 08:32 Source: patient, old records reviewed and deaf interpreter (declined) Mode of arrival: ambulatory Limitations: no limitations History of Present Illness ED Provider: DEDE CONSTANTINO Narrative: 34 yo female with PMH of anemia, HLD, depression here with c/o L flank pain x 2 days that is worse with standing but she denies n/v/d, fevers, urinary symptoms and vaginal discharge. She denies trauma to the back. No b/b incontinence no saddle anesthesia. She has no abdominal pain to palpation. No change in stool pattern. No hx of renal colic or stones. No b/b incontinence or saddle anesthesia. MD elicited complaint: other (flank pain) Onset (ago): day(s) (2) Timing: constant Severity: moderate Similar Symptoms Previously: No Quality: aching Location: left flank Radiation: abdomen Exacerbating factors: other (standing up for too long) Relieving factors: none Associated symptoms: denies other symptoms Work related injury: No Related Data Previous Rx's ?Medication ?Instructions ?Recorded ibuprofen 600 mg tablet 600 mg PO Q8H PRN pain #30 tabs 08/19/24 levofloxacin 750 mg tablet 750 mg PO DAILY #10 tabs 08/19/24 Allergies Allergy/AdvReac Type Severity Reaction Status Date / Time No Known Allergies Allergy Verified 08/19/24 08:22 Review of Systems 2 Review of Systems: Constitutional : No Weight loss, No Fever, No Chills, ENT/Mouth : No Hearing loss, No Ear Pain, No Nasal Congestion, No Sinus Pain, No Hoarseness, No sore throat, No Rhinorrhea, No Swallowing Difficulty Cardiovascular : No Chest Pain, No SOB Respiratory : No Cough, No Dyspnea Gastrointestinal : No Nausea, No Vomiting, No Diarrhea, No abdominal Pain, No Hematochezia, No Melena Genitourinary : No Dysuria, No Urinary Frequency, No Hematuria, No Urinary Incontinence, Musculoskeletal : positive back pain Skin : No Skin Lesions, No rash Neuro : No Weakness, No Numbness, No Paresthesias, no loss of bowel or bladder incontinence, no saddle anesthesia All other systems reviewed and are negative PMFSH Past Medical History Attestation statement: The following information was validated with the patient. Source: old records reviewed Medical History Abdominal pain Irregular menses Blurry vision Anemia Hyperlipemia Surgical History History of tubal ligation Family History Family History Father Diabetes Hypertension Myocardial infarction Mother Hypertension Son In good health Brother In good health Sister In good health Paternal Aunt Stroke Social History Social History Housing: Apartment Alcohol intake: never Patient Tobacco Use Status: Never used Tobacco Smoked in Last 30 Days: No e-Cigarette/Vaping Use: Never Used Second Hand Smoke Exposure: No Use of substances other than those prescribed or required for medical reasons: No Advance Directives: No Advance Directives Information Provided: Yes service: No Current occupational status: employed Current occupational exposures/hazards: No Gender identity: Female Cognitive needs: No Hearing needs: No Vision needs: No Physical Exam 2 Vital Signs: Vital Signs: Last Vital Signs Temp 97.9 F 08/19/24 08:17 Pulse 74 08/19/24 08:17 Resp 16 08/19/24 08:17 BP 147/63 H 08/19/24 08:17 Pulse Ox 99 08/19/24 08:17 O2 Del Method Room Air 08/19/24 08:17 BMI result Body Mass Index 31.7 Appearance: Alert. Oriented X3. No acute distress. Eyes: Pupils equal, round and reactive to light. ENT: Pharynx normal. Neck: Normal inspection. Neck supple. CVS: Normal heart rate and rhythm. Pulses normal. Respiratory: No respiratory distress. Breath sounds normal. Abdomen: Soft and nontender. No CVA ttp cannot reproduce pain. Skin: Skin warm and dry. Normal skin color. Normal skin turgor. Extremities: No lower extremity edema. No calf ttp Neuro: Oriented X 3. No motor deficit. No sensory deficit. CN2-12 intact Course Course Course Narrative: no wbc count Medications Administered Discontinued Medications Generic Name Dose Route Start Last Admin Trade Name Freq PRN Reason Stop Dose Admin Hydrocodone Bitart/Acetaminophen 1 tab 08/19/24 08:40 08/19/24 08:45 Hydrocodone Bit/Acetam 5/325 Tablet PO 08/19/24 08:41 1 tab ONCE ONE Administration Ibuprofen 600 mg 08/19/24 08:40 08/19/24 08:46 Ibuprofen 600 Mg Tablet PO 08/19/24 08:41 600 mg ONCE ONE Administration Ondansetron HCl 4 mg 08/19/24 08:40 08/19/24 08:46 Ondansetron Odt 4 Mg Tab.Rapdis TRANSLINGU 08/19/24 08:41 4 mg ONCE ONE Administration Medical Decision Making Medical Decision Making MDM Narrative: 34 yo female with PMH of anemia, HLD, depression here with c/o L flank pain without cauda equina symptoms without abdominal ttp and no n/v/d fevers. She denies symptoms. At this time will obtain labs, UA and US for renal colic. Differential Diagnosis Differential Diagnoses: The differential diagnosis associated with the presentation includes renal colic, MSK strain Admission/Observation Consideration of admission/observation: Escalation of care including admission/observation considered not toxic, tolerating PO stable for DC on abx labs reassuring Lab Data [facility] Lab Attestation statement: I reviewed the patient's lab results. 08/19/24 08:29 08/19/24 08:29 Labs: Lab Results 08/19/24 08/19/24 Range/Units 08:29 08:31 WBC 8.1 (4.8-10.8) X10*3/uL RBC 4.45 (4.20-5.50) X10*6/uL Hgb 12.1 (12.0-16.0) g/dl Hct 35.7 L (37.0-47.0) % MCV 80.2 (80.0-98.0) fL MCH 27.2 (27.0-33.0) pg MCHC 33.9 (31.0-35.0) g/dl RDW 14.1 (11.0-16.0) % Plt Count 247 (160-400) X10*3/uL MPV 10.7 (9.4-12.3) fL Immature Gran % (Auto) 0.2 (0.0-0.4) % Neut % (Auto) 54.2 (45-73) % Lymph % (Auto) 38.8 (20-40) % Upson % (Auto) 6.0 (2-11) % Eos % (Auto) 0.6 (0-4) % Baso % (Auto) 0.2 (0-2) % Lymph # (Auto) 3.2 (1.2-4.9) X10*3/uL Upson # (Auto) 0.5 (0.1-1.2) X10*3/uL Eos # (Auto) 0.1 (0.0-0.4) X10*3/uL Baso # (Auto) 0.0 (0.0-0.2) X10*3/uL Abs Immat Gran (auto) 0.02 (0.00-0.03) X10*3/uL Absolute Neuts (auto) 4.4 (2.0-8.3) x10*3/uL Absolute Nucleated RBC 0.000 (0.0-0.012) X10*3/uL Nucleated RBC % (auto) 0.0 (0.0-0.2) /100WBC Sodium 138 (135-145) mmol/L Potassium 3.8 (3.3-5.1) mmol/L Chloride 108 (96-108) mmol/L Carbon Dioxide 24 (22-29) mmol/L Anion Gap 10 L (12-20) BUN 10 (9-16) mg/dL Creatinine 0.74 (0.5-1.4) mg/dL Estim Creat Clear Calc 97.8 Estimated GFR > 60 Random Glucose 106 (60-115) mg/dL Calcium 8.9 (8.4-10.2) mg/dL Total Bilirubin 0.6 (0.0-1.0) mg/dL Direct Bilirubin 0.2 (0.0-0.5) mg/dL AST 15 (5-31) U/L ALT 14 (0-31) U/L Alkaline Phosphatase 85 (39-117) U/L Total Protein 7.6 (6.5-8.0) g/dL Albumin 4.0 (3.5-5.0) g/dL Lipase 25 (8-78) U/L Urine Color Yellow Urine Appearance Cloudy Urine pH 5.5 (5.0-9.0) Ur Specific Napoleon 1.010 (1.005-1.025) Urine Protein Negative (Neg-Trace) mg/dL Urine Glucose (UA) Negative (Negative) mg/dL Urine Ketones Negative (Negative) mg/dL Urine Blood Negative (Negative) Urine Nitrite Negative (Negative) Ur Leukocyte Esterase Large (3+) H (Negative) Urine RBC 0-2 (0-2) /HPF Urine WBC >50 H (0-5) /HPF Ur Squamous Epith Cells 11-20 (0-2) /HPF Urine Bacteria 2+ (None Seen) Hyaline Casts 0-2 (0-2) /LPF Urine Test NEGATIVE (NEGATIVE) Independent Interpretation I performed an independent interpretation of an: Ultrasound (normal ) Radiology Impression Discussion of test interpretation with radiology: I have reviewed the radiologist's reading. Independent Historian Clinical information obtained from an independent historian. History obtained from or confirmed by: Spouse External Record Review External record reviewed: Inpatient record and Outpatient record Prescription Management I considered prescription management with: Pain Medication, Antibiotic and Other Discharge Plan Discharge Clinical Impression: Pyelonephritis Patient Disposition: Home, Self-Care Instructions: Kidney Infection (ED) Additional Instructions: labs and ultrasound normal urine infected suspect kidney infection finish medications return for worsening pain, fevers, vomiting, unable to tolerate PO while on the antibiotics please make sure you are not doing any strenuous exercise while on antibiotic or 5 days after Prescriptions: New levofloxacin 750 mg tablet 750 mg PO DAILY Qty: 10 0RF ibuprofen 600 mg tablet 600 mg PO Q8H PRN (Reason: pain) Qty: 30 0RF Stand Alone Forms: Work/School Release Print Language: Moroccan
[2024-08-19] MEDS: HYDROcodone Bit/Acetam 5/325 TABLET 1 TAB PO (08:45)
[2024-08-19] MEDS: Ibuprofen 600 MG TABLET PO (08:46)
[2024-08-19] MEDS: Ondansetron ODT 4 MG TAB.RAPDIS TRANSLINGU (08:46)
[2024-08-19 08:57] LABS: Anion Gap 10 (12-20); Blood Urea Nitrogen 10 mg/dL (9-16); Carbon Dioxide 24 mmol/L (22-29); Chloride 108 mmol/L (96-108); Potassium 3.8 mmol/L (3.3-5.1); Sodium 138 mmol/L (135-145)
[2024-08-19 08:58] LABS: Alanine Aminotransferase 14 U/L (0-31); Alkaline Phosphatase 85 U/L (39-117); Aspartate Amino Transferase 15 U/L (5-31); Bilirubin Direct 0.2 mg/dL (0.0-0.5); Bilirubin Total 0.6 mg/dL (0.0-1.0); Calcium 8.9 mg/dL (8.4-10.2); Creatinine Clr Calc Pharmacy 97.8; Estimated Glomerular Filt Rate > 60; Glucose Random 106 mg/dL (60-115); Lipase 25 U/L (8-78); Total Protein 7.6 g/dL (6.5-8.0)
[2024-08-19 10:13] VITALS: BP 138/70; PULSE 74; RESP 14; TEMP 36.4; O2SAT 98
[2024-08-19 10:16] VITALS: BP 138/70; PULSE 74; RESP 14; TEMP 36.4; O2SAT 98
== END 2024-08-19 10:20 | disposition home or self-care (01) ==
PROVIDERS: Emergency Provider Emergency Medicine; PCP Internal Medicine
DX: N12 Tubulo-interstitial nephritis, not specified as acute or chronic (principal); R10.9 Unspecified abdominal pain; E78.5 Hyperlipidemia, unspecified
CPT/HCPCS: 36415; 76775; 80048; 80076; 81001; 81025; 83690; 85025; 87086; 99284

== ENCOUNTER → 2024-08-19 08:40 | Outpatient (BNV) | payer OTHER, SELFPAY | PROVIDERS: Emergency Provider Emergency Medicine; PCP Internal Medicine; Visit Provider Radiology Diagnostic Radiology | DX: R10.9 Unspecified abdominal pain (principal) | CPT/HCPCS: 76775 ==

== ENCOUNTER 2024-08-27 15:42 | Outpatient (REF) | payer OTHER, SELFPAY ==
[2024-08-27 16:44] LABS: MANUAL DIFF FLAG NO
[2024-08-27 17:11] LABS: Basophils Percent Auto 0.2 % (0-2); Eosinophils Absolute Auto 0.1 X10*3/uL (0.0-0.4); Eosinophils Percent Auto 0.9 % (0-4); Hematocrit 33.8 % (37.0-47.0); Hemoglobin 11.1 g/dl (12.0-16.0); Imm Gran Abs Auto 0.02 X10*3/uL (0.00-0.03); Imm Gran Pct Auto 0.2 % (0.0-0.4); Lymphocytes Absolute Auto 3.2 X10*3/uL (1.2-4.9); Lymphocytes Percent Auto 39.9 % (20-40); Mean Corpuscular HGB Conc 32.8 g/dl (31.0-35.0); Mean Corpuscular Hemoglobin 26.9 pg (27.0-33.0); Mean Corpuscular Volume 81.8 fL (80.0-98.0); Monocytes Absolute Auto 0.6 X10*3/uL (0.1-1.2); Monocytes Percent Auto 7.9 % (2-11); Neutrophils Absolute Auto 4.1 x10*3/uL (2.0-8.3); Neutrophils Percent Auto 50.9 % (45-73); Platelet Count 250 X10*3/uL (160-400); Red Blood Count 4.13 X10*6/uL (4.20-5.50); Red Cell Distribution Width 14.2 % (11.0-16.0)
[2024-08-27 17:27] LABS: Appearance Urine Turbid; Color Urine RED; Glucose Urine UA Negative (Negative); Leukocyte Esterase Urine Small (1+) (Negative); Nitrite Urine Positive (Negative); PH 5.5 (5.0-9.0); Specific Gravity - Urine 1.025 (1.005-1.025); UMIC TRIGGER UACC YES; Urine Blood Large (3+) (Negative); Urine Ketones Trace mg/dL (Negative); Urine Protein 100 (2+) mg/dL (Neg-Trace)
[2024-08-27 17:30] LABS: UPreg QC Valid YES; Urine Pregnancy NEGATIVE (NEGATIVE)
[2024-08-27 17:52] LABS: Bacteria Urine None Seen (None Seen); Hyaline Casts Urine 0-2 /LPF (0-2); RBC Urine >20 /HPF (0-2); UACC Culture Trigger YES; WBC Urine >50 /HPF (0-5)
[2024-08-27 18:13] LABS: Alanine Aminotransferase 11 U/L (0-31); Anion Gap 10 (12-20); Aspartate Amino Transferase 18 U/L (5-31); Bilirubin Direct 0.2 mg/dL (0.0-0.5); Bilirubin Total 0.6 mg/dL (0.0-1.0); Blood Urea Nitrogen 11 mg/dL (9-16); Carbon Dioxide 26 mmol/L (22-29); Chloride 107 mmol/L (96-108); Estimated Glomerular Filt Rate > 60; Glucose Random 81 mg/dL (60-115); Potassium 3.5 mmol/L (3.3-5.1); Sodium 139 mmol/L (135-145); Total Protein 7.4 g/dL (6.5-8.0)
[2024-08-27 18:28] LABS: Alkaline Phosphatase 81 U/L (39-117)
== END 2024-08-27 15:43 | disposition home or self-care (01) ==
LOC: HO.LAB 15:42
PROVIDERS: PCP Internal Medicine; Visit Provider Physician Assistant Medical
DX: N12 Tubulo-interstitial nephritis, not specified as acute or chronic (principal); R10.9 Unspecified abdominal pain; Z00.00 Encounter for general adult medical examination without abnormal findings; Z87.448 Personal history of other diseases of urinary system
CPT/HCPCS: 36415; 80053; 81001; 81025; 82248; 83735; 85025; 87086; 96127

== ENCOUNTER 2024-08-27 15:42 | Outpatient (AMB) | payer OTHER, SELFPAY ==
--- NOTE | 2024-08-27 15:57 | A.OFFPC_ITS ---
Vital Signs 08/27/24 15:58 Height 5 ft 1 in Weight 162 lb 3.2 oz BMI 30.6 BP 116/60 Blood Pressure Location Lt brachial Position Sitting Respiration 16 Pulse 61 Pulse Source Pulse Oximeter Temp 97.5 F Temp Source Temporal Artery Scan Pulse Oximetry (%) 99 Oxygen Delivery Method Room Air Intake Visit Reasons: [facility] [place] 08/19 UTI Intake Note: Patient is here to follow-up after a visit the emergency department at [facility] in [place], [place] on 08/19/2024 Accompanied by: Self / Same As Patient Allergies No Known Allergies Allergy (Verified 08/27/24 16:51) Medication List - Last Reconciled 08/27/24 by Frances Ochoa PA-C ibuprofen 600 mg PO Q8H PRN levofloxacin 750 mg PO DAILY Tobacco use date assessed: 08/27/24 Dental Screening Dental Screen Date: 08/27/24 Did you have a dental visit in the last 12 months?: Yes Did you have a dental problem in the last 6 months where you did not have access to dental care?: No Was dental information given to patient?: Patient has dentist [facility] Medical History History of pyelonephritis Left flank pain Abdominal pain Irregular menses Blurry vision Anemia Hyperlipemia Surgical History History of tubal ligation Family History Father Diabetes Hypertension Myocardial infarction Mother Hypertension Son In good health Brother In good health Sister In good health Paternal Aunt Stroke Social History Housing: Apartment Alcohol intake: never Patient Tobacco Use Status: Never used Tobacco e-Cigarette/Vaping Use: Never Used Second Hand Smoke Exposure: No service: No Current occupational status: employed Current occupational exposures/hazards: No Gender identity: Female Cognitive needs: No Hearing needs: No Vision needs: No Female Reproductive History Menstrual Age of Menarche: 14 Questionnaire PHQ-9 Over the last 2 weeks, how often have you been bothered by any of the following problems? 1. Little interest or pleasure in doing things: not at all 2. Feeling down, depressed, or hopeless: not at all 3. Trouble falling or staying asleep, or sleeping too much: not at all 4. Feeling tired or having little energy: not at all 5. Poor appetite or overeating: not at all 6. Feeling bad about yourself - or that you are a failure or have let yourself or your family down: not at all 7. Trouble concentrating on things, such as reading the newspaper or watching television: not at all 8. Moving or speaking so slowly that other people could have noticed. Or the opposite - being so fidgety or restless that you have been moving around a lot more than usual: not at all 9. Thoughts that you would be better off or of hurting yourself in some way: not at all Total score: 0 Depression Screening Interpretation: Negative Depression Screening Done: Yes 65042 - PHQ-9 Billing: Yes Source: Developed by Drs. Ryan Zee, Aminata Keating, Suleiman Hsu and colleagues, with an educational artur from [employer]. Thrive Questionnaire Date Thrive assessed: 08/27/24 I am a: Patient What is your living situation today?: I have a steady place to live Within the past 12 months, did the food you bought not last and you didn't have the money to get more?: Never true Within the past 12 months, did you worry whether your food would run out before you got money to buy more?: Never true Do you have trouble paying for medicines?: No Do you have trouble getting transportation to medical appointments?: No Do you have trouble paying your heating and electricity bill?: No Do you have trouble taking care of your child, family member or friend?: No Do you have trouble with day-to-day activities such as bathing, preparing meals, shopping, managing finances, etc.?: No Are you currently unemployed and looking for a job?: No Are you interested in more education?: No Please select the resources that you would like help with: None THRIVE Score: 0 AUDIT C Alcohol Use Questionnaire (AUDIT-C) 3. How often do you have six or more drinks on one occasion?: Never Total Score: 0 Score Reviewed/Action Taken: No ADRIEL-7 AMB Questionnaire ADRIEL-7 Date ADRIEL - 7 assessed: 08/27/24 Feeling nervous, anxious, or on edge: 0 = Not at all Not being able to stop or control worryin = Not at all Worrying too much about different things: 0 = Not at all Trouble relaxin = Not at all Being so restless that it is hard to sit still: 0 = Not at all Becoming easily annoyed or irritable: 0 = Not at all Feeling afraid as if something awful might happen: 0 = Not at all Total ADRIEL-7 score (0-4 normal; 5-9 mild; 10-14 moderate; 15-21 severe): 0 Source: Developed by Drs. Ryan Zee, Aminata Keating, Suleiman Hsu and colleagues, with an educational artur from [employer]. ADRIEL-7 Assessment Billing ADRIEL-7 Assessment Tool: ADRIEL-7 Assessment 09333 Physical exam (Primary Care) Vital Signs: Last Vital Signs Temp 97.5 F 08/27/24 15:58 Pulse 61 08/27/24 15:58 Resp 16 08/27/24 15:58 BP 116/60 08/27/24 15:58 Pulse Ox 99 08/27/24 15:58 Oxygen Delivery Method Room Air 08/27/24 15:58 Care Plan Goal for BP management: <130/80 BMI result Body Mass Index 30.6 BMI Assessment/Plan discussion: High BMI High, discussed plan: lifestyle, weight reduction, dietary, physical activity and alcohol moderation Tobacco/Smoking Status: Tobacco use Status Tobacco use date assessed 08/27/24 08/27/24 16:07 Patient Tobacco Use Status Never used Tobacco 08/27/24 15:59 e-Cigarette/Vaping Use Never Used 08/27/24 15:59 PHQ-9: PHQ-9 Score PHQ-9: Total score 0 08/27/24 16:45 Depression Screening Interpretation: Negative Thrive Assessment: Date of Thrive Assessment Date Thrive assessed 08/27/24 08/27/24 16:07 Coding Level of Care Code Est Pt Level 4 (91738) Complex EM visit Add On G2211 Diagnoses Pyelonephritis N12 Left flank pain R10.9 Additional Codes ADRIEL-7 Assessment Billing - ADRIEL-7 Assessment Tool: ADRIEL-7 Assessment 36486 ([id number]) PHQ-9 - 18842 - PHQ-9 Billing: Yes ([id number]) Assessment & Plan Assessment & Plan (1) Pyelonephritis: Code(s): N12 - Tubulo-interstitial nephritis, not specified as acute or chronic Category: Medical Plan: Patient was seen in the emergency department on 08/19/2024 and diagnosed with with pyelonephritis. Had a negative left kidney ultrasound and had normal kidney function. Reports she is not feeling any better. Will send patient back for CBC, CMP, repeat UA and order an outpatient CT scan without IV contrast. Patient to return in 1-2 weeks for further evaluation and management and for re- evaluation. (2) Left flank pain: Code(s): R10.9 - Unspecified abdominal pain Category: Medical Plan: Patient with left flank pain worse with movement. Abdomen is soft and nontender. There is no CVA tenderness on my exam. No rashes or signs of infection. She has full range motion of the back. Could be related to muscular skeletal or remnants of the pyelonephritis that is actively being treated. Patient will have repeat blood work a CT scan in the urine and return in 1-2 weeks for re-evaluation. Will continue to monitor. Plan Plan Patient was informed and verbally consented to the use of an ambient scribe for clinic note documentation during this visit. 1. Pyelonephritis/left flank pain A CT scan of the abdomen is ordered for detailed assessment of the kidneys, and bloodwork is planned to reassess renal function. It is imperative for diagnostic certainty and to monitor the infection's resolution. Continuation of the current medication regimen is advised. Discussion Notes During the visit, we discussed the diagnosis of pyelonephritis, its management, and the necessity for further evaluation through a CT scan to ensure comprehensive assessment and effective resolution of the infection. We reviewed the importance of blood tests to monitor renal function and compare it with past results. I explained all proposed treatments, risks, and benefits, stressingly the significance of continuing the current medication and adhering to follow-up bloodwork and imaging recommendations. Follow-up visits were proposed in two to three weeks to assess improvement and ensure optimal care continuation. Orders: Orders Complete Blood Count Auto Diff Today Z00.00 - Encounter for general adult medical examination without abnormal findings Comprehensive Met. Panel Today Z00.00 - Encounter for general adult medical examination without abnormal findings Liver Panel Today Z00.00 - Encounter for general adult medical examination without abnormal findings Magnesium Today Z00.00 - Encounter for general adult medical examination without abnormal findings UA CC w/rflx Micro + Cult Today N12 - Tubulo-interstitial nephritis, not specified as acute or chronic CT abdomen wo IV con Today R10.9 - Unspecified abdominal pain, Z87.448 - Personal history of other diseases of urinary system Ur Preg Test Today R10.9 - Unspecified abdominal pain, Z87.448 - Personal history of other diseases of urinary system Patient Instructions: Patient Instructions - Continue taking your prescribed medications for pyelonephritis. - Attend the blood work for renal function assessment as soon as possible. - Return for the CT scan as scheduled for a detailed evaluation of the kidneys. - Monitor symptoms and report any worsening immediately. - Follow dietary recommendations for managing anemia and hyperlipidemia. - Maintain regular psychotherapy sessions and medication adherence for depression. - Schedule a follow-up appointment in 2-3 weeks or if needed sooner. Scribe Plan - Not visible on output: History of Present Illness The patient is a 34-year-old female presenting with persistent left flank pain after being seen at [facility] on 08/19/2024. She was diagnosed with pyelonephritis. While she was in the emergency department she had blood work with normal CBC, normal kidney function her urine had blood in leukocytes negative nitrates. She had a negative left kidney ultrasound. Sent home with levofloxacin for 10 days. Reports she is taking these antibiotics and she is still having left flank pain. The patient described the pain as occurring primarily on the left side, intensifying upon standing or moving, which necessitates gradual adjustments in positioning. She denies experiencing any fever, nausea, vomiting, urinary symptoms, vaginal discharge, changes in stool, or a history of renal colic or stones. Review of Systems - Gastrointestinal: Denies changes in stool, abdominal pains. - Genitourinary: Denies urinary symptoms, vaginal discharge. Physical Exam Appearance: Alert. Oriented X3. No acute distress. Head: Normal external exam. Normocephalic. Atraumatic. Eyes: Pupils are equal, round, and reactive to light. Extraocular movements intact. Conjunctiva and sclera normal. Eyelids normal. Ears: External auditory canal normal. Tympanic membranes normal. Throat: Pharynx normal. Uvula midline. Moist mucous membranes. Neck: Normal inspection. Neck supple. Full range of motion. Cardiovascular: Normal heart rate and rhythm. Respiratory: No respiratory distress. Painless inspiration. Breath sounds normal. No wheezes/rales/rhonchi noted. Chest nontender. No accessory muscle usage noted or decreased air movement noted. Abdomen: Soft and nontender. No distention noted. No organomegaly noted. No visible injury noted. Back: No costovertebral angle tenderness. Full range of motion noted. Skin: Skin warm and dry. Normal skin color. Normal skin turgor. No rashes/lesions/lacerations noted. Extremities: No lower extremity edema. Extremities exhibit normal range of motion. Extremities nontender. Neuro: Oriented X 3. No motor deficit. No sensory deficit. Reflexes normal. Results - Labs: Urine test indicated blood and infection. - Imaging: Previous sonography of the left kidney showed normal results.
[2024-08-27 15:58] VITALS: BP 116/60; PULSE 61; RESP 16; TEMP 36.4; O2SAT 99; BMI 30.6
== END 2024-08-27 16:28 | disposition home or self-care (01) ==
LOC: HO.HMCH 15:43
PROVIDERS: PCP Internal Medicine; Visit Provider Physician Assistant Medical
DX: N12 Tubulo-interstitial nephritis, not specified as acute or chronic (principal); R10.9 Unspecified abdominal pain

== ENCOUNTER 2024-09-08 14:06 | Outpatient (REF) | payer OTHER, SELFPAY ==
--- NOTE | ~2024-09-08 | CT_ITS ---
EXAMINATION: CT ABDOMEN WITHOUT IV CONTRAST HISTORY: R10.9 - Unspecified abdominal pain COMPARISON: Comparison is made with the prior examination dated 04/29/2011. TECHNIQUE: CT scan of the abdomen was performed without contrast using standard departmental protocol. Coronal and sagittal reformatted images were generated and reviewed. Oral contrast material was not administered at the request of the referring physician. This CT exam was performed with one or more of the following dose reduction techniques: automated exposure control, adjustment of the mA and/or kV according to patient size, use of iterative reconstruction technique. DLP: 247 mGy-cm FINDINGS: LOWER CHEST: The visualized lung bases are clear. There is no pleural effusion. CARDIOVASCULATURE: The heart is normal in size. There is no pericardial effusion. LIVER: The liver is normal in size and contour. The liver has an unremarkable unenhanced appearance. GALLBLADDER / BILE DUCTS: The gallbladder is contracted, without evidence of calcified stones. There is no intra or extrahepatic biliary ductal dilatation. SPLEEN: The spleen is normal in size and has an unremarkable unenhanced appearance. PANCREAS: The pancreas has an unremarkable unenhanced appearance. ADRENAL GLANDS: Unremarkable. KIDNEYS/RETROPERITONEUM: No renal calculi are identified. There is no hydronephrosis. There is no perinephric soft tissue stranding. Perfusion abnormalities related to pyelonephritis cannot be evaluated without IV contrast material. LYMPH NODES: No retroperitoneal lymphadenopathy is identified in the abdomen. VASCULATURE: The abdominal aorta is normal in caliber. MESENTERY/PERITONEUM: No free fluid. No masses. There is no free intraperitoneal gas. STOMACH: There is a large amount of debris in the stomach. SMALL BOWEL: The visualized small bowel is normal in caliber. COLON: The visualized portion of the colon is unremarkable. APPENDIX: Normal. BONES / SOFT TISSUES: No suspicious bony or soft tissue abnormalities. CT/CT abdomen wo IV con IMPRESSION: Unremarkable unenhanced CT of the abdomen. No perinephric stranding is identified. Evaluation for perfusion abnormalities related to pyelonephritis is not possible without intravenous contrast. Electronically signed by: Ryan Valdez MD 09/08/2024 02:36 PM EDT
== END 2024-09-08 14:07 | disposition home or self-care (01) ==
LOC: HO.CT 14:06
PROVIDERS: PCP Internal Medicine; Visit Provider Physician Assistant Medical
DX: R10.9 Unspecified abdominal pain (principal); Z87.448 Personal history of other diseases of urinary system
CPT/HCPCS: 74150

== ENCOUNTER → 2024-09-08 14:07 | Outpatient (BNV) | payer OTHER, SELFPAY | PROVIDERS: PCP Internal Medicine; Visit Provider Radiology Diagnostic Radiology | DX: R10.9 Unspecified abdominal pain (principal) | CPT/HCPCS: 74150 ==

== ENCOUNTER 2024-09-10 13:29 | Outpatient (AMB) | payer OTHER, SELFPAY ==
--- NOTE | 2024-09-10 13:35 | A.OFFPC_ITS ---
Vital Signs 09/10/24 13:36 Height 5 ft 1 in Weight 165 lb 2 oz BMI 31.2 BP 122/68 Blood Pressure Location Lt brachial Position Sitting Temp 97.5 F Temp Source Temporal Artery Scan Intake Visit Reasons: 1 week follow up Intake Note: Patient is here to follow up on Left flank pain. Direct Support Specialist Required: Yes Direct Support Specialist Language: Irish Wind Technician: Not Required per policy Accompanied by: Self / Same As Patient Allergies No Known Allergies Allergy (Verified 09/10/24 14:54) Medication List - Last Reconciled 09/10/24 by Frances Ochoa PA-C acetaminophen ER (Tylenol Arthritis Pain) 1,300 mg (2 x 650 mg) PO Q12H cyclobenzaprine 10 mg PO Q8H meloxicam 15 mg PO DAILY Tobacco use date assessed: 09/10/24 Dental Screening Dental Screen Date: 08/27/24 HPI 1 week follow up HPI Details The patient is a 34-year-old female presenting with persistent back pain following completion of treatment for pyelonephritis. She sought emergency care on August 19 due to back and abdominal pain where she was diagnosed with pyelonephritis and prescribed levofloxacin. Although symptoms of the pyelonephritis resolved after completing antibiotics, she continues to experience significant back pain. A CT scan of her kidneys was normal. It is suspected that the pain may have a musculoskeletal origin rather than renal in nature. [facility] Medical History (Updated 09/10/24 @ 14:56 by Frances Ochoa PA-C) Back pain History of pyelonephritis Left flank pain Abdominal pain Irregular menses Blurry vision Anemia Hyperlipemia Surgical History History of tubal ligation Family History Father Diabetes Hypertension Myocardial infarction Mother Hypertension Son In good health Brother In good health Sister In good health Paternal Aunt Stroke Social History Housing: Apartment Alcohol intake: never Patient Tobacco Use Status: Never used Tobacco e-Cigarette/Vaping Use: Never Used Second Hand Smoke Exposure: No service: No Current occupational status: employed Current occupational exposures/hazards: No Gender identity: Female Cognitive needs: No Hearing needs: No Vision needs: No Female Reproductive History Menstrual Age of Menarche: 14 Questionnaire Thrive Questionnaire Date Thrive assessed: 08/27/24 ADRIEL-7 AMB Questionnaire ADRIEL-7 Date ADRIEL - 7 assessed: 08/27/24 Source: Developed by Drs. Ryan Zee, Aminata Keating, Suleiman Hsu and colleagues, with an educational artur from [employer]. Review of Systems Const Details: - Musculoskeletal: Reports continuous back pain. Physical exam (Primary Care) Vital Signs: Last Vital Signs Temp 97.5 F 09/10/24 13:36 BP 122/68 09/10/24 13:36 BMI result Body Mass Index 31.2 BMI Assessment/Plan discussion: High BMI High, discussed plan: lifestyle, weight reduction, dietary, physical activity, alcohol moderation and other Tobacco/Smoking Status: Tobacco use Status Tobacco use date assessed 09/10/24 09/10/24 13:40 Patient Tobacco Use Status Never used Tobacco 09/10/24 13:40 e-Cigarette/Vaping Use Never Used 09/10/24 13:40 Thrive Assessment: Date of Thrive Assessment Date Thrive assessed 08/27/24 09/10/24 13:40 Const Other: Appearance: Alert. Oriented X3. No acute distress. Head: Normal external exam. Normocephalic. Atraumatic. Eyes: Pupils are equal, round, and reactive to light. Extraocular movements intact. Conjunctiva and sclera normal. Eyelids normal. Throat: Pharynx normal. Uvula midline. Moist mucous membranes. Neck: Normal inspection. Neck supple. Full range of motion. Cardiovascular: Normal heart rate and rhythm. Respiratory: No respiratory distress. Painless inspiration. Abdomen: Soft and nontender. Back: No Costovertebral angle tenderness noted. Full range of motion noted. Mild tenderness to the left lower lumbar paraspinous musculature. No mid lumbar tenderness step-offs or deformities noted. Patient has a normal steady gait. No focal deficits are noted. Skin: Skin warm and dry. Normal skin color. Normal skin turgor. No rashes/lesions/lacerations noted. Extremities: Extremities exhibit normal range of motion. Extremities nontender. Neuro: Oriented X 3. No motor deficit. No sensory deficit. Reflexes normal. Results AMB Urinalysis, Automated UA Leukoctes 0 Latoya/uL Last Edit by NICO Burleson on 09/10/24 13:52 UA Nitrite Negative Last Edit by Luis Segura, RMA on 09/10/24 13:52 UA Urobilinogen 0 mg/dL Last Edit by Luis Segura, A on 09/10/24 13:52 UA Protein 0 mg/dL Last Edit by Luis Segura, RMA on 09/10/24 13:52 UA pH 6.0 Last Edit by Luis Segura, RMA on 09/10/24 13:52 UA Blood 0 Jj/uL Last Edit by Luis Segura, RMA on 09/10/24 13:52 UA Specific [place] 1.020 Last Edit by Luis Segura, A on 09/10/24 13: 52 UA Ketone Negative Last Edit by Luis Segura, RMA on 09/10/24 13:52 UA Bilirubin 0 mg/dL Last Edit by Luis Segura, A on 09/10/24 13:52 UA Glucose 0 mg/dL Last Edit by Luis Segura, A on 09/10/24 13:52 Results Reviewed Results Reviewed: Laboratory Last Values Urine pH (Auto) 6.0 09/10/24 13:51 Specific [place] (Auto) 1.020 09/10/24 13:51 Urine Protein (Auto) 0 mg/dL 09/10/24 13:51 Glucose (UA)(Auto) 0 mg/dL 09/10/24 13:51 Urine Ketones (Auto) Negative 09/10/24 13:51 Urine Blood (Auto) 0 Jj/uL 09/10/24 13:51 Urine Nitrite (Auto) Negative 09/10/24 13:51 Urine Bilirubin (Auto) 0 mg/dL 09/10/24 13:51 Urine Urobilinogen (Auto) 0 mg/dL 09/10/24 13:51 Leukocyte Esterase (Auto) 0 Latoya/uL 09/10/24 13:51 - CT Scan of Kidneys: Normal Coding Level of Care Code Est Pt Level 3 (71997) Complex EM visit Add On G2211 Diagnoses History of pyelonephritis Z87.448 Back pain M54.9 Assessment & Plan Assessment & Plan (1) History of pyelonephritis: Code(s): Z87.448 - Personal history of other diseases of urinary system Category: Medical (2) Back pain: Code(s): M54.9 - Dorsalgia, unspecified Category: Medical Plan Plan Patient was informed and verbally consented to the use of an ambient scribe for clinic note documentation during this visit. 1. Pyelonephritis Antibiotic treatment was completed; improvement noted. A urine culture has been requested to verify resolution of the infection. 2. Dorsalgia, unspecified Pain management with meloxicam was recommended; advised against using Motrin concomitantly. Tylenol is allowed. Usage advisories provided for meloxicam. I explained that the back pain persisting post-antibiotic treatment is likely non-renal due to normal CT results for the kidneys. The musculoskeletal origin was considered, and I proposed the use of meloxicam, providing instructions about medication interactions and usage. A urine culture was ordered to ensure no ongoing infection. I emphasized the importance of monitoring symptoms and following medication guidelines for effective symptom management, with specific care advice around working hours and activity restrictions due to prescribed medications. Orders: Orders AMB Urinalysis Automated Today Z87.448 - Personal history of other diseases of urinary system UA CC w/rflx Micro + Cult Today Z87.448 - Personal history of other diseases of urinary system Medications: New meloxicam 15 mg PO DAILY 90 tabs 1RF acetaminophen ER (Tylenol Arthritis Pain) 1,300 mg (2 x 650 mg) PO Q12H 90 tabs 1RF cyclobenzaprine 10 mg PO Q8H 90 tabs 1RF Discontinued ibuprofen Discontinued Reason: Doctor's Order 600 mg PO Q8H PRN 30 tabs 0RF pain Patient Instructions: - Complete the urine culture as ordered. - Take meloxicam as prescribed; do not use Motrin concurrently. - Use Tylenol for additional pain relief if necessary. - Avoid driving and alcohol consumption while using meloxicam, and refrain from use during work hours. - Report any new symptoms or concerns promptly.
[2024-09-10 13:36] VITALS: BP 122/68; TEMP 36.4; BMI 31.2
== END 2024-09-10 15:10 | disposition home or self-care (01) ==
LOC: HO.HMCH 13:30
PROVIDERS: PCP Internal Medicine; Visit Provider Physician Assistant Medical
DX: Z87.448 Personal history of other diseases of urinary system (principal)

== ENCOUNTER 2024-09-10 13:29 | Outpatient (REF) | payer OTHER, SELFPAY ==
[2024-09-10 16:17] LABS: Appearance Urine Clear; Color Urine Yellow; Glucose Urine UA Negative (Negative); Leukocyte Esterase Urine Trace (Negative); Nitrite Urine Negative (Negative); PH 6.5 (5.0-9.0); Specific Gravity - Urine 1.015 (1.005-1.025); UMIC TRIGGER UACC YES; Urine Blood Negative (Negative); Urine Ketones Negative (Negative); Urine Protein Negative (Neg-Trace)
[2024-09-10 16:20] LABS: Bacteria Urine None Seen (None Seen); Hyaline Casts Urine 0-2 /LPF (0-2); RBC Urine 0-2 /HPF (0-2); Squamous Epithelial Cell Urine 0-2 /HPF (0-2); WBC Urine 0-5 /HPF (0-5)
== END 2024-09-10 13:30 | disposition home or self-care (01) ==
LOC: HO.LNP 13:29
PROVIDERS: PCP Internal Medicine; Visit Provider Physician Assistant Medical
DX: Z87.448 Personal history of other diseases of urinary system (principal)
CPT/HCPCS: 81001; 81003

== ENCOUNTER 2024-10-26 16:46 | Outpatient (AMB) | payer OTHER, SELFPAY ==
--- NOTE | 2024-10-26 17:19 | A.OFFPC_ITS ---
Vital Signs 10/26/24 17:20 Height 5 ft 1 in Weight 163 lb BMI 30.8 BP 122/70 Blood Pressure Location Lt brachial Position Sitting Intake Visit Reasons: annual exam Intake Note: Patient here for a physical exam Trap Operator Required: No Accompanied by: Self / Same As Patient Allergies No Known Allergies Allergy (Verified 10/26/24 17:40) Medication List - Last Reconciled 10/26/24 by Jaylene Irvin MD No Known Home Meds Tobacco use date assessed: 09/10/24 Dental Screening Dental Screen Date: 10/26/24 Did you have a dental visit in the last 12 months?: No Did you have a dental problem in the last 6 months where you did not have access to dental care?: No Was dental information given to patient?: Patient has dentist HPI HPI Comments History of Present Illness Details The patient is a 34-year-old female presenting with a complaint of tinnitus, specifically a persistent ringing in the left ear. The patient noticed an increase in symptoms after a trip to a [place] in [place] where she experienced exposure to significant noise levels. This exacerbation was accompanied by a temporary rise in her blood pressure. The patient experiences periodic itching and discharge from the left ear, suggesting possible otitis externa, and has been prescribed eardrops. The patient has no history of significant otological issues but has a notable past event of vertigo, which seems unrelated but noteworthy. There is a detailed discussion regarding protective measures for the ear, specifically in noisy situations. - Pap Smear: Last performed in 2022, wit h normal results. - Abdominal CT and laboratory tests done in July 2022 with normal findings. - Blood Pressure: Discussed family histo ry of hypertension; preventive measures suggested. - Discussed noise exposure as a factor e xacerbating tinnitus and measures to mitigate such exposure. [facility] Medical History (Updated 10/26/24 @ 18:52 by Jaylene Irvin MD) Back pain History of pyelonephritis Left flank pain Abdominal pain Irregular menses Blurry vision Anemia Hyperlipemia Surgical History History of tubal ligation Family History Father Diabetes Hypertension Myocardial infarction Mother Hypertension Son In good health Brother In good health Sister In good health Paternal Aunt Stroke Social History Housing: Apartment Alcohol intake: never Patient Tobacco Use Status: Never used Tobacco e-Cigarette/Vaping Use: Never Used Second Hand Smoke Exposure: No service: No Current occupational status: employed Current occupational exposures/hazards: No Gender identity: Female Cognitive needs: No Hearing needs: No Vision needs: No Female Reproductive History Menstrual Age of Menarche: 14 Questionnaire PHQ-9 Over the last 2 weeks, how often have you been bothered by any of the following problems? 1. Little interest or pleasure in doing things: not at all 2. Feeling down, depressed, or hopeless: not at all 3. Trouble falling or staying asleep, or sleeping too much: not at all 4. Feeling tired or having little energy: not at all 5. Poor appetite or overeating: not at all 6. Feeling bad about yourself - or that you are a failure or have let yourself or your family down: not at all 7. Trouble concentrating on things, such as reading the newspaper or watching television: not at all 8. Moving or speaking so slowly that other people could have noticed. Or the opposite - being so fidgety or restless that you have been moving around a lot more than usual: not at all 9. Thoughts that you would be better off or of hurting yourself in some way: not at all Total score: 0 Depression Screening Interpretation: Negative Depression Screening Done: Yes 56923 - PHQ-9 Billing: Yes Source: Developed by Drs. Ryan Zee, Aminata Keating, Suleiman Hsu and colleagues, with an educational artur from [employer]. Thrive Questionnaire Date Thrive assessed: 10/19/24 I am a: Patient What is your living situation today?: I have a steady place to live Within the past 12 months, did the food you bought not last and you didn't have the money to get more?: Often true Within the past 12 months, did you worry whether your food would run out before you got money to buy more?: Never true Do you have trouble paying for medicines?: No Do you have trouble getting transportation to medical appointments?: No Do you have trouble paying your heating and electricity bill?: No Do you have trouble taking care of your child, family member or friend?: No Do you have trouble with day-to-day activities such as bathing, preparing meals, shopping, managing finances, etc.?: No Are you currently unemployed and looking for a job?: No Are you interested in more education?: No Please select the resources that you would like help with: None Currently or been in a relationship where the following occur: No concerns reported THRIVE Score: 1 AUDIT C Alcohol Use Questionnaire (AUDIT-C) 1. How often do you have a drink containing alcohol?: Never Total Score: 0 Score Reviewed/Action Taken: No ADRIEL-7 AMB Questionnaire ADRIEL-7 Date ADRIEL - 7 assessed: 10/26/24 Feeling nervous, anxious, or on edge: 0 = Not at all Not being able to stop or control worryin = Not at all Worrying too much about different things: 0 = Not at all Trouble relaxin = Not at all Being so restless that it is hard to sit still: 0 = Not at all Becoming easily annoyed or irritable: 0 = Not at all Feeling afraid as if something awful might happen: 0 = Not at all Total ADRIEL-7 score (0-4 normal; 5-9 mild; 10-14 moderate; 15-21 severe): 0 Source: Developed by Drs. Ryan Zee, Aminata Keating, Suleiman Hsu and colleagues, with an educational artur from [employer]. ADRIEL-7 Assessment Billing ADRIEL-7 Assessment Tool: ADRIEL-7 Assessment 55975 Review of Systems Const All systems reviewed & are unremarkable except as noted in HPI and below Card Denies chest pain at rest, Denies chest pain with activity, Denies edema, Denies irregular heart rhythm, Denies claudication, Denies dyspnea, Denies dyspnea on exertion, Denies orthopnea, Denies paroxysmal nocturnal dyspnea and Denies slow heart rate Resp Denies cough, Denies dyspnea and Denies dyspnea on exertion Musc Denies atrophy, Denies deformity and Denies limited range of motion Physical exam (Primary Care) Vital Signs: Last Vital Signs BP 122/70 10/26/24 17:20 BMI result Body Mass Index 30.8 Tobacco/Smoking Status: Tobacco use Status Tobacco use date assessed 09/10/24 10/26/24 17:26 Patient Tobacco Use Status Never used Tobacco 10/26/24 17:26 e-Cigarette/Vaping Use Never Used 10/26/24 17:26 PHQ-9: PHQ-9 Score PHQ-9: Total score 0 10/26/24 17:43 Depression Screening Interpretation: Negative Thrive Assessment: Date of Thrive Assessment Date Thrive assessed 10/19/24 10/26/24 17:26 Currently or been in a relationship where the following occur: No concerns reported HENMT Head: Yes normal to inspection, Yes normocephalic and Yes atraumatic Ears: external ears normal Eyes General: appearance normal, both eyes and all related structures Eyelids: Yes eyelids normal Conjunctivae: conjunctivae normal Neck Neck: Yes normal visual inspection and Yes supple Resp Effort & Inspection: normal respiratory effort Auscultation: clear to auscultation bilaterally Cardio Jugular venous distension: no JVD Rate: regular rate Rhythm: regular rhythm Heart sounds: S1 normal heart sound present and S2 normal heart sound present GI Inspection: Yes normal to inspection Palpation (GI): Soft to palpation and nontender Auscultation: normal bowel sounds Skin General skin exam: no rashes or lesions noted Neuro General: no focal motor deficits Extrem General: Yes full ROM Psych Appearance: grossly normal Coding Level of Care Code Est Pt Level 3 (13084) Est Pt Prev Care 18-39y(40058) Diagnoses Physical exam Z00.00 Ear itch L29.9 Additional Codes ADRIEL-7 Assessment Billing - ADRIEL-7 Assessment Tool: ADRIEL-7 Assessment 66985 ([id number]) PHQ-9 - 17197 - PHQ-9 Billing: Yes ([id number]) Time Spent (min) 33 Assessment & Plan Assessment & Plan (1) Physical exam: Code(s): Z00.00 - Encounter for general adult medical examination without abnormal findings Category: Medical (2) Ear itch: Code(s): L29.9 - Pruritus, unspecified Category: Medical Plan I recommend the patient continue using noise-canceling headphones in noisy environments to manage tinnitus symptoms effectively. The prescribed ear drops should help with the left ear irritation and discharge. Blood pressure monitoring is advised to ensure levels remain within a normal range, especially considering the family's medical history. A continued emphasis on lifestyle modification, including adequate exercise and dietary management to prevent hypertension and diabetes, is suggested. Regular follow-ups to monitor these health parameters and the progress of tinnitus management are encouraged. Patient was informed and verbally consented to the use of an ambient scribe for clinic note documentation during this visit. We discussed the main diagnosis of tinnitus with a focus on noise exposure as a tello exacerbating factor. The importance of using noise-canceling headphones was emphasized as a preventive measure. I explained the potential benefits and limitations of ear drops for the irritation and discharge noted in the left ear. We reviewed her transient hypertension episode, likely related to noise exposure, and planned for monitoring it in future visits. I highlighted the significance of regular health check-ups given her family history of essential hypertension and type 2 diabetes mellitus. Protective measures, including managing exposure to loud environments, were thoroughly explored, aiming to prevent worsening of symptoms. Patient Instructions: - Use noise-canceling headphones in loud places to protect your ears. - Apply prescribed ear drops as directed to the affected ear. - Monitor your blood pressure regularly, especially when in noisy environments. - Adopt a healthy lifestyle including regular exercise and a balanced diet. - Follow up on regular health screenings to monitor potential hereditary risks.
[2024-10-26 17:20] VITALS: BP 122/70; BMI 30.8
== END 2024-10-26 17:49 | disposition home or self-care (01) ==
LOC: HO.HMCH 16:47
PROVIDERS: PCP Internal Medicine; Visit Provider Internal Medicine
DX: Z00.00 Encounter for general adult medical examination without abnormal findings (principal); L29.9 Pruritus, unspecified

== ENCOUNTER → 2024-10-26 16:46 | Outpatient (BNVA) | payer OTHER, SELFPAY | PROVIDERS: PCP Internal Medicine; Visit Provider Internal Medicine | DX: Z00.00 Encounter for general adult medical examination without abnormal findings (principal); H93.12 Tinnitus, left ear; L29.9 Pruritus, unspecified | CPT/HCPCS: 96127 ==

== ENCOUNTER 2025-01-25 07:51 | Outpatient (AMB) | payer OTHER, SELFPAY ==
[2025-01-25 08:05] VITALS: BP 116/70
--- NOTE | 2025-01-25 08:05 | MHC.OFFVIS ---
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 Cycles usually are regular x5 days, LMP December 06. This month she experienced just spotting and pelvic pain. She denies any external stressors, recent surgeries, illnesses or other factors. She denies any facial/chest hair growth or acne. Admits to frequency and dysuria. Currently sexually active. UPT is negative. Urine dip-leukocytes and blood. History of tubal ligation. [facility] Medical History Back pain History of pyelonephritis Left flank pain Abdominal pain Irregular menses Blurry vision Anemia Hyperlipemia Surgical History History of tubal ligation Family History Father Diabetes Hypertension Myocardial infarction Mother Hypertension Son In good health Brother In good health Sister In good health Paternal Aunt Stroke Social History Housing: Apartment Alcohol intake: never Patient Tobacco Use Status: Never used Tobacco e-Cigarette/Vaping Use: Never Used Second Hand Smoke Exposure: No service: No Current occupational status: employed Current occupational exposures/hazards: No Gender identity: Female Cognitive needs: No Hearing needs: No Vision needs: No Female Reproductive History Menstrual Age of Menarche: 14 Duration of menses: 3-5 days Date of last menstrual period: 02/06/25 Review of Systems Const All systems reviewed & are unremarkable except as noted in HPI and below Physical Exam Vital Signs: Last Vital Signs BP 116/70 01/25/25 08:05 Const General: cooperative, healthy appearing and no acute distress Orientation/consciousness: patient oriented x3 GI Inspection: Yes normal to inspection Palpation (GI): Soft to palpation and Other GI palpation findings present (Nontender) Rectal Exam - Female: visual inspection normal General: Yes bladder normal to palpation External Female Exam: normal appearance of the urethra Speculum Exam - Vagina: normal appearance of the vagina, normal palpation and normal vaginal discharge Speculum Exam - Cervix: normal appearance of the cervix, normal palpation and Other cervical findings present (Friable w/speculum) Bimanual exam- vagina & uterus: normal bimanual exam, normal palpation, uterine size normal, bladder normal to palpation, normal palpation, uterine shape normal and non-tender Bimanual Exam- Adnexa, other: normal adnexae Neuro General: patient oriented x3 Results AMB Test Urine AMB Test Urine Negative Last Edit by NICO Holden on 01/25/25 08:19 AMB Urinalysis, Automated UA Leukoctes 3 Latoya/uL Last Edit by NICO Holden on 01/25/25 08:42 UA Nitrite Negative Last Edit by NICO Holden on 01/25/25 08:42 UA Urobilinogen 0 mg/dL Last Edit by NICO Holden on 01/25/25 08:42 UA Protein 0 mg/dL Last Edit by NICO Holden on 01/25/25 08:42 UA pH 6.5 Last Edit by NICO Holden on 01/25/25 08:42 UA Blood 2 Jj/uL Last Edit by NICO Holden on 01/25/25 08:42 UA Specific Cornish 1.015 Last Edit by NICO Holden on 01/25/25 08:42 UA Ketone Negative Last Edit by NICO Holden on 01/25/25 08:42 UA Bilirubin 0 mg/dL Last Edit by NICO Holden on 01/25/25 08:42 UA Glucose 0 mg/dL Last Edit by NICO Holden on 01/25/25 08:42 Results Reviewed Results Reviewed: Laboratory Last Values Tst Clinic Negative 01/25/25 08:18 Assessment & Plan Assessment & Plan (1) Irregular menses: Code(s): N92.6 - Irregular menstruation, unspecified Category: Medical Plan: Monitor bleeding, report any heavy prolonged episodes. Lab work ordered. Follow up in person for results. The patient expressed understanding and agreement with the plan of care. All of her questions and concerns were addressed to the best of my ability. (2) Dysuria: Code(s): R30.0 - Dysuria Category: Medical Plan: UA clean-catch sent to the lab. Rx for Macrobid and med use explained. Discussed; Increase hydration, mostly water. Limit caffeine to one cup a day or eliminate altogether. Avoid carbonated, sugary or artificial sweetened beverages. Always clean and wipe from front to back. Empty your bladder often and when the urge. Urinate after intimacy. Take as directed and complete any medications that may be ordered. Report to the ED immediately if any fever >100.4, flu like symptoms, lightheadedness, dizziness, significant flank pain. (3) Pelvic pain: Code(s): R10.2 - Pelvic and perineal pain Plan Plan pelvic ultrasound, cervical cultures completed. Follow up pending ultrasound and lab work. The patient expressed understanding and agreement with the plan of care. All of her questions and concerns were addressed to the best of my ability. Total time I personally spent on visit and management today: ?35 minutes. Time spent included review of pertinent office notes in the electronic health record; review of laboratory and imaging results; review of personal family medical history; performing physical exam; discussing diagnosis and plan of care with the patient; documenting the encounter in the EMR. This note is constructed using voice recognition software. While every effort has been made to ensure accuracy, job analysis manager errors may have been included. Orders: Orders US pelvic and transvaginal Today N92.6 - Irregular menstruation, unspecified Thyroid Stimulating Hormone Today N92.1 - Excessive and frequent menstruation with irregular cycle, N92.6 - Irregular menstruation, unspecified Follicle Stimulating Hormone Today N91.2 - Amenorrhea, unspecified, N92.6 - Irregular menstruation, unspecified Prolactin Today N91.2 - Amenorrhea, unspecified, N92.6 - Irregular menstruation, unspecified Bacterial Vaginosis Panel Today N92.6 - Irregular menstruation, unspecified, R30.0 - Dysuria CT NG by PCR Vag/Cerv Today N92.6 - Irregular menstruation, unspecified, R30.0 - Dysuria Urine Culture Today R30.0 - Dysuria AMB HCG Urine Test Today N91.2 - Amenorrhea, unspecified Lutenizing Hormone Today N91.2 - Amenorrhea, unspecified, N92.6 - Irregular menstruation, unspecified AMB Urinalysis Automated Today R30.0 - Dysuria Medications: New nitrofurantoin monohyd/m-cryst 100 mg (Macrobid) must administer with a meal/food 100 mg PO BID 10 caps 0RF UTI 5 days Coding Level of Care Code Est Pt Level 3 (45854) Diagnoses Irregular menses N92.6 Dysuria R30.0 Pelvic pain R10.2
== END 2025-01-25 08:46 | disposition home or self-care (01) ==
LOC: HO.HWS 07:51
PROVIDERS: PCP Internal Medicine; Visit Provider Advanced Practice Midwife
DX: N92.6 Irregular menstruation, unspecified (principal); R30.0 Dysuria; R10.2 Pelvic and perineal pain; N91.2 Amenorrhea, unspecified
CPT/HCPCS: 99213

== ENCOUNTER 2025-01-25 07:51 | Outpatient (REF) | payer OTHER, SELFPAY ==
[2025-01-25 09:52] LABS: Thyroid Stimulating Hormone 1.06 uIU/mL (0.32-4.0)
[2025-01-25 14:47] LABS: Bacterial Vaginosis PCR NEGATIVE (Negative); Candida Group PCR NOT DETECTED (Not Detect); Candida glab krusei PCR NOT DETECTED (Not Detect); Trichomonas vaginalis PCR NOT DETECTED (Not Detect)
[2025-01-25 15:18] LABS: CT PCR NOT DETECTED (Not Detect.); NG PCR NOT DETECTED (Not Detect.)
[2025-01-26 05:19] LABS: Follicle Stimulating Hormone 4.5 mIU/mL
== END 2025-01-25 07:52 | disposition home or self-care (01) ==
LOC: HO.LAB 07:51
PROVIDERS: PCP Internal Medicine; Visit Provider Advanced Practice Midwife
DX: N92.6 Irregular menstruation, unspecified (principal); R30.0 Dysuria; R10.2 Pelvic and perineal pain
CPT/HCPCS: 81003; 81025; 81515; 83001; 83002; 84146; 84443; 87086; 87491; 87591

== ENCOUNTER 2025-01-25 08:35 | Outpatient (REF) | payer OTHER, SELFPAY | END 2025-01-25 08:36 | disposition home or self-care (01) | LOC: HO.LNP 08:35 | PROVIDERS: Visit Provider Advanced Practice Midwife | DX: Z13.89 Encounter for screening for other disorder (principal) ==

== ENCOUNTER 2025-03-16 15:29 | Outpatient (REF) | payer OTHER, SELFPAY ==
--- NOTE | ~2025-03-16 | US_ITS ---
EXAMINATION: US PELVIS CLINICAL INFORMATION: Irregular menstruation COMPARISON: None available. TECHNIQUE: Ultrasound of the pelvis is performed using both transabdominal and transvaginal transducers along with Doppler. Transvaginal imaging is performed due to inadequate visualization transabdominally. FINDINGS: LMP: Now Uterus: The uterus is anteverted and measures 9.8 x 4.6 x 5 cm. The double wall endometrial thickness is 0.5-0.7 mm. No focal uterine lesions. . Adnexa: Both ovaries are visualized. There is normal color flow to the adnexa.. Right ovary measures 3.8 x 3.1 x 2.3 cm. Follicles seen. Right ovary is only visualized on the transabdominal evaluation. Left ovary measures 1.8 x 2.9 x 2.2 cm. Few follicles. Incidental note of nabothian cysts. No significant free fluid in the pelvis. US/US pelvic and transvaginal IMPRESSION: Unremarkable pelvic ultrasound. Electronically signed by: Bridger Samuel MD 03/16/2025 04:39 PM EDT
== END 2025-03-16 15:30 | disposition home or self-care (01) ==
LOC: HO.US 15:29
PROVIDERS: PCP Internal Medicine; Visit Provider Advanced Practice Midwife
DX: N92.6 Irregular menstruation, unspecified (principal)
CPT/HCPCS: 76830; 76856

== ENCOUNTER → 2025-03-16 15:32 | Outpatient (BNV) | payer OTHER, SELFPAY | PROVIDERS: PCP Internal Medicine; Visit Provider Radiology Diagnostic Ultrasound | DX: N92.6 Irregular menstruation, unspecified (principal) | CPT/HCPCS: 76830; 76856 ==

== ENCOUNTER 2025-03-30 12:30 | Outpatient (AMB) | payer OTHER, SELFPAY ==
--- NOTE | 2025-03-30 12:45 | MHC.OFFVIS ---
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 She reports her last 2 cycles have been normal, and has no pelvic pain or other concerns today. [facility] Medical History Back pain History of pyelonephritis Left flank pain Abdominal pain Irregular menses Blurry vision Anemia Hyperlipemia Surgical History History of tubal ligation Family History Father Diabetes Hypertension Myocardial infarction Mother Hypertension Son In good health Brother In good health Sister In good health Paternal Aunt Stroke Social History Housing: Apartment Alcohol intake: never Patient Tobacco Use Status: Never used Tobacco e-Cigarette/Vaping Use: Never Used Second Hand Smoke Exposure: No service: No Current occupational status: employed Current occupational exposures/hazards: No Gender identity: Female Cognitive needs: No Hearing needs: No Vision needs: No Female Reproductive History Menstrual Age of Menarche: 14 Date of last menstrual period: 03/16/25 Review of Systems Const All systems reviewed & are unremarkable except as noted in HPI and below Endo Reports no additional complaints Physical Exam Vital Signs: Last Vital Signs BP 100/60 03/30/25 12:50 Const General: cooperative, healthy appearing and no acute distress Psych Appearance: well kempt Attitude: cooperative Thought process: Normal thought process present Results AMB Urinalysis, Automated UA Leukoctes 0 Latoya/uL Last Edit by NICO Holden on 03/30/25 13:01 UA Nitrite Negative Last Edit by NICO Holden on 03/30/25 13:01 UA Urobilinogen 0 mg/dL Last Edit by Madonna Kong [facility] on 03/30/25 13:01 UA Protein 0 mg/dL Last Edit by Madonna Kong [facility] on 03/30/25 13:01 UA pH 6.0 Last Edit by Madonna Kong [facility] on 03/30/25 13:01 UA Blood 0 Jj/uL Last Edit by Madonna Kong [facility] on 03/30/25 13:01 UA Specific Dawson 1.020 Last Edit by Madonna Kong [facility] on 03/30/25 13:01 UA Ketone Negative Last Edit by Madonna Kong [facility] on 03/30/25 13:01 UA Bilirubin 0 mg/dL Last Edit by Madonna Kong [facility] on 03/30/25 13:01 UA Glucose 0 mg/dL Last Edit by Madonna Kong [facility] on 03/30/25 13:01 Results Reviewed Results Reviewed: [place] [id number] Ultrasound Report Signed Patient: Dianelys Byrne MR#: [id number] : 1990 Acct:[id number] Age/Sex: 34 / F ADM Date: 03/16/25 Loc: .[place] Attending Dr: Ana Rosa Flood CNM Ordering Physician: Ana Rosa Flood CNM Date of Service: 03/16/25 Procedure(s): US pelvic and transvaginal Accession Number(s): [id number] cc: Ana Rosa Flood CNM; Jaylene Kidd MD~ Reason for Exam: N92.6 - Irregular menstruation, unspecified EXAMINATION: US PELVIS CLINICAL INFORMATION: Irregular menstruation COMPARISON: None available. TECHNIQUE: Ultrasound of the pelvis is performed using both transabdominal and transvaginal transducers along with Doppler. Transvaginal imaging is performed due to inadequate visualization transabdominally. FINDINGS: LMP: Now Uterus: The uterus is anteverted and measures 9.8 x 4.6 x 5 cm. The double wall endometrial thickness is 0.5-0.7 mm. No focal uterine lesions. . Adnexa: Both ovaries are visualized. There is normal color flow to the adnexa.. Right ovary measures 3.8 x 3.1 x 2.3 cm. Follicles seen. Right ovary is only visualized on the transabdominal evaluation. Left ovary measures 1.8 x 2.9 x 2.2 cm. Few follicles. Incidental note of nabothian cysts. No significant free fluid in the pelvis. US/US pelvic and transvaginal IMPRESSION: Unremarkable pelvic ultrasound. Electronically signed by: Bridger Samuel MD 03/16/2025 04:39 PM EDT RP Dictated By: Bridger Samuel MD Signed By: <Electronically signed by Bridger Samuel MD in OV> 03/16/25 1639 DD/ 1548 TD/TT: 03/16/25 1605 Supervisor Gate Services: FELY Assessment & Plan Assessment & Plan (1) Encounter to discuss test results: Code(s): Z71.2 - Person consulting for explanation of examination or test findings Plan Discussed: Ultrasound findings-unremarkable. Urine dip is negative findings. Monitor menstrual cycles, report any unscheduled bleeding, bleeding episodes <24 days apart or heavy/prolonged menstrual bleeding. Call the office for a follow up for any concerns. Annual exam scheduled 05/19/2025. This note is constructed using voice recognition software. While every effort has been made to ensure accuracy, roller skater errors may have been included. Orders: Orders AMB Urinalysis Automated Today R31.29 - Other microscopic hematuria Coding Level of Care Code Est Pt Level 3 (79703) Diagnoses Encounter to discuss test results Z71.2
[2025-03-30 12:50] VITALS: BP 100/60
== END 2025-03-30 13:25 | disposition home or self-care (01) ==
LOC: HO.HWS 12:30
PROVIDERS: PCP Internal Medicine; Visit Provider Advanced Practice Midwife
DX: Z71.2 Person consulting for explanation of examination or test findings (principal); R31.29 Other microscopic hematuria
CPT/HCPCS: 99213

== ENCOUNTER → 2025-03-30 12:30 | Outpatient (BNVA) | payer OTHER, SELFPAY | PROVIDERS: PCP Internal Medicine; Visit Provider Advanced Practice Midwife | DX: Z71.2 Person consulting for explanation of examination or test findings (principal); R31.29 Other microscopic hematuria; N92.6 Irregular menstruation, unspecified; R30.0 Dysuria; R10.20 Pelvic and perineal pain unspecified side | CPT/HCPCS: 81003 ==